=== PATIENT | female | born 1950 | race Caucasian/White ===

== ENCOUNTER → 2016-12-14 | Day surgery (SDC) | payer OTHER ==
[2016-12-11 08:04] VITALS: Ht 162.6 cm; Wt 70.0 kg
[~2016-12-14] VITALS: Ht 162.6 cm; Wt 70.0 kg
[~2016-12-14] MED LIST: AMT25 PO; ASPCH81X PO; DEXAMETHASONE SOD INJ 4 MG/ML VIAL ONE; LEVO100T7 PO; LIDOCAINE HCL 1% MPF 5 ML VIAL ONE; LPT/20 PO; NRN600 PO; TNR25 PO; ZLF/100 PO
--- NOTE | 2016-12-14 08:05 | History & Physical Bridge - SC ---
H&P Re-Evaluation Bridge Note: I have examined the patient, reviewed the History & Physical and in the interval since the performance of the History & Physical I have noted the following changes of clinical significance: No changes noted
--- NOTE | 2016-12-14 08:22 | Discharge Instructions-SurgCtr ---
Discharge Instructions Date of Service December 14, 2016. Visit Reason for Visit: Lumbar Spondylosis Discharge Discharge Diagnosis / Problem: spondylosis Discharge Goals Goal(s): Improve function Activity Recommendations Activity Limitations: resume your previous activity Anesthesia . Post Anesthesia Instructions: If you have had General Anesthesia or IV Sedation: * Do not drive today. * Resume driving when surgeon permits. * Do not make important decisions or sign legal documents today. * Call surgeon for: 1. Temperature elevations greater than 101 degrees F. 2. Uncontrollable pain. 3. Excessive bleeding. 4. Persistent nausea and vomiting. 5. Medication intolerance (nausea, vomiting or rash). * For nausea and vomiting use only clear liquids such as: tea, soda, bouillon until nausea subsides, then gradually increase diet as tolerated. * If you have any concerns or questions, call your surgeon's office. If physician is unavailable and it is an emergency, call 911 or go to the nearest emergency room. . Diet Recommendations Home Diet: no limitations Procedures Procedures Performed: LEFT L4-5, L5-S1 FACET JOINT INJECTIONS. Pending Studies Studies pending at discharge: no Medical Emergencies . Who to Call and When: Medical Emergencies: If at any time you feel your situation is an emergency, please call 911 immediately. . Non-Emergent Contact Non-Emergency issues call your: Surgeon . . "Provider Documentation" section prepared by Bryn Smith. .
--- NOTE | 2016-12-14 08:23 | [facility] Post Operative Brief Note ---
Immediate Operative Summary Operative Date December 14, 2016. Pre-Operative Diagnosis ACQUIRED SCOLIOSIS Post-Operative Diagnosis SAME Procedure(s) Performed LEFT L4-5, L5-S1 FACET JOINT INJECTIONS. Surgeon DR. Melinda CHEEMA [employer] General Manager Surgeon(s) NONE Estimated Blood Loss 5 ML Findings scoliosis Complication(s) None Disposition Recovery Room / PACU
[2016-12-14 08:24] VITALS: TEMP 36.7
[2016-12-14 08:37] VITALS: BP 134/87; PULSE 74; O2SAT 97
--- NOTE | 2016-12-14 08:37 | OPERATIVE REPORT ---
DATE OF OPERATION: 12/14/2016 PRE AND POSTOPERATIVE DIAGNOSIS: Degenerative scoliosis lumbar spine. PROCEDURE: Facet joint injections L4-L5 and L5-S1 lumbar spine. DESCRIPTION OF PROCEDURE: The patient was taken to the preoperative area. The 4-5 and L5-S1 area of degeneration localized with C-arm. The patient was prepped, draped sterile. The 22-gauge Tuohy needle advanced using biplanar fluoroscopy to the facet joints bilaterally at 4-5 and 5-S1. She tolerated it well. 1 mL of dexamethasone injected to each facet joint without incident. I attest to the content of the Intraoperative Record and any orders documented therein. Any exceptio ns are noted below.
== END | disposition home or self-care (01) ==
LOC: X.SURG 06:52
PROVIDERS: ATTEND Orthopaedic Surgery Orthopaedic Surgery of the Spine
DX: M47.896 Other spondylosis, lumbar region (principal); M41.9 Scoliosis, unspecified; F32.9 Major depressive disorder, single episode, unspecified; E07.9 Disorder of thyroid, unspecified; Z83.3 Family history of diabetes mellitus; Z82.49 Family history of ischemic heart disease and other diseases of the circulatory system; Z82.3 Family history of stroke

== ENCOUNTER → 2017-03-23 | Outpatient (CLI) | payer OTHER ==
[~2017-03-23] MED LIST changes: -DEXAMETHASONE SOD INJ 4 MG/ML VIAL ONE; -LIDOCAINE HCL 1% MPF 5 ML VIAL ONE
[2017-03-23 17:58] LABS: URINE APPEARANCE CLOUDY (CLEAR); URINE BILIRUBIN NEG (NEG); URINE COLOR DK YELLOW; URINE NITRITE NEG (NEG); URINE SPECIFIC GRAVITY 1.033 (1.000-1.030); UROBILINOGEN NEG (NEG)
[2017-03-23 18:00] LABS: MANUAL MICROSCOPIC REQUIRED? YES; REVIEW REQ? NO
[2017-03-23 18:14] LABS: URINE BACTERIA NEG (NEG); URINE RBC 0-4 /hpf (0-4)
== END | disposition home or self-care (01) ==
LOC: C.LABSPEC 17:31
PROVIDERS: ATTEND Obstetrics & Gynecology
DX: R39.9 Unspecified symptoms and signs involving the genitourinary system (principal); Z12.4 Encounter for screening for malignant neoplasm of cervix; N95.2 Postmenopausal atrophic vaginitis

== ENCOUNTER → 2017-03-23 | Outpatient (CLI) | payer OTHER | END | disposition home or self-care (01) | LOC: C.PAPS 07:38 | PROVIDERS: ATTEND Obstetrics & Gynecology | DX: Z12.4 Encounter for screening for malignant neoplasm of cervix (principal); N95.2 Postmenopausal atrophic vaginitis ==

== ENCOUNTER 2017-11-27 10:42 | Emergency (ER) | payer OTHER ==
[~2017-11-27] VITALS: Ht 160 cm; Wt 70.0 kg
[~2017-11-27 10:42] MED LIST changes: -LPT/20 PO; +LPT20 PO
[2017-11-27 10:44] VITALS: TEMP 37.1; Ht 160 cm; Wt 70.0 kg
[2017-11-27] MEDS ORDERED: SODIUM CHLORIDE 0.9% 1000ML 2,000 ML IV STA (11:03)
[2017-11-27] MEDS ORDERED: ONDANSETRON INJ 2 MG/ML 2 ML VIAL IV STA ×2 (11:03→13:05)
[2017-11-27] MEDS ORDERED: OPTIRAY 320 IV PRN (11:15)
[2017-11-27] MEDS ORDERED: ACETAMINOPHEN 500 MG TAB PO STA (11:45)
[2017-11-27 11:51] LABS: BASO % 0.3 %; BASO ABS # 0.03 K/uL (0-0.2); EOS % 0.1 %; EOS ABS # 0.01 K/uL (0-0.5); HEMATOCRIT 40.9 % (37-47); HEMOGLOBIN 14.6 g/dL (12.0-16.0); IG# 0.02 K/uL (0.00-0.02); LYMPH ABS # 1.24 K/uL (1.2-3.4); MEAN CELL VOLUME 91.3 fL (80-100); MEAN CORPUSCULAR HEMOGLOBIN 32.6 pg (25-34); MEAN CORPUSCULAR HGB CONC 35.7 g/dl (32-36); MEAN PLATELET VOLUME 10.9 fL (7.4-10.4); MONO % 5.6 %; MONO ABS # 0.54 K/uL (0.11-0.59); NEUT % 80.8 %; NEUT ABS # 7.72 K/uL (1.4-6.5); PLATELET COUNT 269 K/uL (130-400); RED CELL DISTRIBUTION WIDTH CV 13.9 % (11.5-14.5); RED CELL DISTRIBUTION WIDTH SD 46.9 fL (36.4-46.3); WHITE BLOOD COUNT 9.56 K/uL (4.8-10.8)
[2017-11-27 12:06] LABS: ALBUMIN 3.8 gm/dl (3.4-5.0); CALCIUM 9.2 mg/dl (8.5-10.1); CREATININE 0.73 mg/dl (0.60-1.20); POTASSIUM 3.6 mmol/L (3.5-5.1)
[2017-11-27 12:09] LABS: TOTAL PROTEIN 7.8 gm/dl (6.4-8.2)
--- NOTE | 2017-11-27 12:53 | DIAGNOSTIC IMAGING REPORT ---
ABDOMEN AND PELVIS CT WITH IV CONTRAST CT DOSE: 905.47 mGycm HISTORY: Acute generalized and epigastric abdominal pain abd pain epigastric TECHNIQUE: Multiaxial CT images of the abdomen and pelvis were performed following the use of intravenous contrast. A dose lowering technique was utilized adhering to the principles of ALARA. COMPARISON STUDY: CT abdomen and pelvis 12/26/2013. FINDINGS: Imaged inferior cardiac chambers are unremarkable. Mild subsegmental bibasilar atelectasis. Calcified granuloma of the basal left lower lobe. Calcified left hilar lymph nodes. No pneumatosis or pneumoperitoneum. Coronary arterial calcifications are noted. Imaged inferior cardiac chambers are unremarkable otherwise. Liver is unremarkable with the exception of a 3 mm low attenuating lesion of the hepatic dome, too small to characterize however statistically favoring benign etiology such as a hepatic cyst. Calcific granulomata throughout the spleen. Gallbladder, pancreas and adrenal glands are within normal limits. No renal calculi or hydronephrosis. Partially decompressed urinary bladder lumen. Prior hysterectomy. No adnexal mass lesions. Tortuosity with mild mixed plaquing of the aorta. No aneurysm. No bulky adenopathy. No small bowel obstruction. Fluid within the distal sigmoid and rectum. Colonic diverticulosis without CT evidence of acute diverticulitis. Partial distention of the bowel with mild wall thickening and mild pericolonic inflammatory stranding extends from the cecum to the rectum. Normal appendix. No ascites. Soft tissues are unremarkable. Multilevel term changes about the spine with sigmoidal thoracolumbar scoliosis. IMPRESSION: 1. Mild wall thickening with minimal pericolonic stranding extends from the cecum to the rectum suggesting infectious or inflammatory pancolitis. Sequela of partial distention is thought to be less likely. No bowel obstruction. 2. Colonic diverticulosis without diverticulitis. 3. Prior granulomatous disease. 4. Coronary arterial calcifications. 5. Additional findings as above. Electronically signed by: Mingo Torres M.D. 11/27/2017 12:51 PM Dictated Date/Time: 11/27/2017 12:43 PM
[2017-11-27] MEDS ORDERED: SODIUM CHLORIDE 0.9% 1000ML 1,000 ML IV STA (13:03)
[2017-11-27] MEDS ORDERED: METOCLOPRAMIDE HCL INJ 5 MG/ML 2 ML VIAL IV STA (13:05)
[2017-11-27] MEDS ORDERED: KETOROLAC TROMETHAMINE 30 MG/ML VIAL IV STA (13:13)
--- NOTE | 2017-11-27 14:31 | EMERGENCY ROOM VISIT NOTE ---
History Report prepared by Olga: Gustavo Nickerson Under the Supervision of: Dr. Epi Pimentel D.O. First contact with patient: 10:49 Chief Complaint: VOMITING Stated Complaint: VOMITING, ABD PAIN, DIZZY, DIARRHEA History of Present Illness The patient is a 67 year old female who presents to the Emergency Room with complaints of intermittent vomiting beginning yesterday. The patient also complains of diarrhea and RUQ abdominal pain. Her diarrhea began five days ago. Her most recent diarrhea occurred last night. The patient recently returned home from [facility] in the [facility] yesterday. She notes that she never left her resort. She states that she drank bottled water while there. The patient denies any known sick contacts. She has no prior abdominal surgeries. Pt denies headache, change in vision, fevers, chest pain, shortness of breath, pain with urination, and melena. She has not had anything to eat since yesterday. Source of History: patient Onset: Yesterday Quality: other (vomiting) Timing: intermittent Associated Symptoms: + abdominal pain (RUQ), + diarrhea, No fevers, No headache, No chest pain, No SOB, No melena, No urinary symptoms Review of Systems See HPI for pertinent positives & negatives. A total of 10 systems reviewed and were otherwise negative. Past Medical & Surgical Medical Problems: (1) Chronic low back pain (2) Depression (3) Generalized anxiety disorder (4) GERD (gastroesophageal reflux disease) (5) Hypercholesteremia (6) Hypertension (7) Hypothyroid (8) Scoliosis Surgical Problems: (1) S/P hysterectomy Family History FHx: cancer Hypertension Social History Smoking Status: Never Smoker Alcohol Use: none Marital Status: single Housing Status: lives alone Occupation Status: unemployed Current/Historical Medications Scheduled Amitriptyline HCl (Amitriptyline HCl), 25 MG PO HS Aspirin (Aspirin Chewable), 81 MG PO QAM Atenolol (Atenolol), 25 MG PO QAM Ciprofloxacin Hcl (Cipro), 500 MG PO BID Gabapentin (Gabapentin), 600 MG PO TID Levothyroxine Sodium (Levothyroxine Sodium), 100 MCG PO QAM Sertraline HCl (Sertraline HCl), 100 MG PO HS Scheduled PRN Ondansetron Hcl (Zofran), 4 MG PO TID PRN for Nausea Allergies Coded Allergies: No Known Allergies (Unverified , 11/27/17) Physical Exam Vital Signs Date Time Temp Pulse Resp B/P (MAP) Pulse Ox O2 Delivery O2 Flow Rate FiO2 11/27/17 16:00 89 20 97 Room Air 11/27/17 15:22 78 16 134/82 99 11/27/17 13:23 86 20 129/75 97 Room Air 11/27/17 10:44 37.1 88 18 155/85 99 Room Air Physical Exam GENERAL: Sitting up in bed, disheveled, sunburnt, no distress, non-toxic EYE EXAM: normal conjunctiva. OROPHARYNX: no exudate, no erythema, lips, buccal mucosa, and tongue normal and mucous membranes are moist NECK: supple, no nuchal rigidity, no adenopathy, non-tender LUNGS: Clear to auscultation. Normal chest wall mechanics HEART: no murmurs, S1 normal and S2 normal ABDOMEN: abdomen soft, normo-active bowel sounds, no masses, no rebound or guarding. Faint tenderness to the RUQ. BACK: Back is symmetrical on inspection and there is no deformity, no midline tenderness, no CVA tenderness. SKIN: no rashes and no bruising UPPER EXTREMITIES: upper extremities are grossly normal. LOWER EXTREMITIES: No pitting edema. NEURO EXAM: Normal sensorium, cranial nerves II-XII grossly intact, normal speech, no gross weakness of arms, no gross weakness of legs. Medical Decision & Procedures ER Provider Diagnostic Interpretation: Radiology results as stated below per my review and the radiologist's interpretation: ABDOMEN AND PELVIS CT WITH IV CONTRAST FINDINGS: Imaged inferior cardiac chambers are unremarkable. Mild subsegmental bibasilar atelectasis. Calcified granuloma of the basal left lower lobe. Calcified left hilar lymph nodes. No pneumatosis or pneumoperitoneum. Coronary arterial calcifications are noted. Imaged inferior cardiac chambers are unremarkable otherwise. Liver is unremarkable with the exception of a 3 mm low attenuating lesion of the hepatic dome, too small to characterize however statistically favoring benign etiology such as a hepatic cyst. Calcific granulomata throughout the spleen. Gallbladder, pancreas and adrenal glands are within normal limits. No renal calculi or hydronephrosis. Partially decompressed urinary bladder lumen. Prior hysterectomy. No adnexal mass lesions. Tortuosity with mild mixed plaquing of the aorta. No aneurysm. No bulky adenopathy. No small bowel obstruction. Fluid within the distal sigmoid and rectum. Colonic diverticulosis without CT evidence of acute diverticulitis. Partial distention of the bowel with mild wall thickening and mild pericolonic inflammatory stranding extends from the cecum to the rectum. Normal appendix. No ascites. Soft tissues are unremarkable. Multilevel term changes about the spine with sigmoidal thoracolumbar scoliosis. IMPRESSION: 1. Mild wall thickening with minimal pericolonic stranding extends from the cecum to the rectum suggesting infectious or inflammatory pancolitis. Sequela of partial distention is thought to be less likely. No bowel obstruction. 2. Colonic diverticulosis without diverticulitis. 3. Prior granulomatous disease. 4. Coronary arterial calcifications. 5. Additional findings as above. Electronically signed by: Mingo Torres M.D. 11/27/2017 12:51 PM Laboratory Results 11/27/17 11:20 Red Blood Count 4.48, Mean Corpuscular Volume 91.3, Mean Corpuscular Hemoglobin 32.6, Mean Corpuscular Hemoglobin Concent 35.7, Mean Platelet Volume 10.9, Neutrophils (%) (Auto) 80.8, Lymphocytes (%) (Auto) 13.0, Monocytes (%) (Auto) 5.6, Eosinophils (%) (Auto) 0.1, Basophils (%) (Auto) 0.3, Neutrophils # (Auto) 7.72, Lymphocytes # (Auto) 1.24, Monocytes # (Auto) 0.54, Eosinophils # (Auto) 0.01, Basophils # (Auto) 0.03 11/27/17 11:20 Test 11/27/17 11:20 11/27/17 13:40 11/27/17 13:55 White Blood Count 9.56 K/uL (4.8-10.8) Red Blood Count 4.48 M/uL (4.2-5.4) Hemoglobin 14.6 g/dL (12.0-16.0) Hematocrit 40.9 % (37-47) Mean Corpuscular Volume 91.3 fL (80-100) Mean Corpuscular Hemoglobin 32.6 pg (25-34) Mean Corpuscular Hemoglobin Concent 35.7 g/dl (32-36) Platelet Count 269 K/uL (130-400) Mean Platelet Volume 10.9 fL (7.4-10.4) Neutrophils (%) (Auto) 80.8 % Lymphocytes (%) (Auto) 13.0 % Monocytes (%) (Auto) 5.6 % Eosinophils (%) (Auto) 0.1 % Basophils (%) (Auto) 0.3 % Neutrophils # (Auto) 7.72 K/uL (1.4-6.5) Lymphocytes # (Auto) 1.24 K/uL (1.2-3.4) Monocytes # (Auto) 0.54 K/uL (0.11-0.59) Eosinophils # (Auto) 0.01 K/uL (0-0.5) Basophils # (Auto) 0.03 K/uL (0-0.2) RDW Standard Deviation 46.9 fL (36.4-46.3) RDW Coefficient of Variation 13.9 % (11.5-14.5) Immature Granulocyte % (Auto) 0.2 % Immature Granulocyte # (Auto) 0.02 K/uL (0.00-0.02) Anion Gap 9.0 mmol/L (3-11) Est Creatinine Clear Calc Drug Dose 71.1 ml/min Estimated GFR () 99.5 Estimated GFR (Non- 85.8 BUN/Creatinine Ratio 22.9 (10-20) Calcium Level 9.2 mg/dl (8.5-10.1) Total Bilirubin 0.5 mg/dl (0.2-1) Direct Bilirubin 0.1 mg/dl (0-0.2) Aspartate Amino Transf (AST/SGOT) 53 U/L (15-37) Alanine Aminotransferase (ALT/SGPT) 54 U/L (12-78) Alkaline Phosphatase 209 U/L (45-117) Total Protein 7.8 gm/dl (6.4-8.2) Albumin 3.8 gm/dl (3.4-5.0) Lipase 363 U/L (73-393) Urine Color YELLOW Urine Appearance CLEAR (CLEAR) Urine pH 7.0 (4.5-7.5) Urine Specific [place] > 1.045 (1.000-1.030) Urine Protein NEG (NEG) Urine Glucose (UA) NEG (NEG) Urine Ketones 2+ (NEG) Urine Occult Blood NEG (NEG) Urine Nitrite NEG (NEG) Urine Bilirubin NEG (NEG) Urine Urobilinogen NEG (NEG) Urine Leukocyte Esterase NEG (NEG) Urine WBC (Auto) 0 /hpf (0-5) Urine RBC (Auto) 0-4 /hpf (0-4) Urine Hyaline Casts (Auto) 0 /lpf (0-5) Urine Epithelial Cells (Auto) 0-5 /lpf (0-5) Urine Bacteria (Auto) NEG (NEG) Lactic Acid Level 2.0 mmol/L (0.4-2.0) Laboratory results per my review. Medications Administered Medications (Trade) Dose Ordered Sig/Tiana Route Start Time Stop Time Status Last Admin Dose Admin Sodium Chloride 2,000 ml @ 999 mls/hr Q2H1M STAT IV 11/27/17 11:03 11/27/17 13:03 DC 11/27/17 11:34 999 MLS/HR Ondansetron HCl (Zofran Inj) 4 mg NOW STAT IV 11/27/17 11:03 11/27/17 11:06 DC 11/27/17 11:43 4 MG Acetaminophen (Tylenol Tab) 1,000 mg NOW STAT PO 11/27/17 11:45 11/27/17 11:46 DC 11/27/17 11:53 1,000 MG Sodium Chloride 1,000 ml @ 999 mls/hr Q1H1M STAT IV 11/27/17 13:03 11/27/17 14:03 DC 11/27/17 13:16 999 MLS/HR Ondansetron HCl (Zofran Inj) 4 mg NOW STAT IV 11/27/17 13:05 11/27/17 13:08 DC 11/27/17 13:16 4 MG Metoclopramide HCl (Reglan Inj) 5 mg NOW STAT IV 11/27/17 13:05 11/27/17 13:08 DC 11/27/17 13:16 5 MG Ketorolac Tromethamine (Toradol Inj) 30 mg NOW STAT IV 11/27/17 13:13 11/27/17 13:14 DC 11/27/17 13:17 30 MG ED Course ED COURSE: Vital signs were reviewed and showed hypertension. The patients medical record was reviewed The above diagnostic studies were performed and reviewed. ED treatments and interventions as stated above. 1059: The patient was evaluated in room B3B. A complete history and physical examination was performed. 1103: Ordered Zofran Inj 4 mg IV, Sodium Chloride 2000 ml @ 999 mls/hr IV. 1145: Ordered Tylenol Tab 1000 mg Po. 1301: I reassessed the patient. She was able to keep down Tylenol and PO fluids. 1303: Ordered Sodium Chloride 1000 ml @ 999 mls/hr IV. 1305: Ordered Reglan Inj 5 mg IV, Zofran Inj 4 mg IV. 1313: Ordered Toradol Inj 30 mg IV. 1519: Ordered Cipro Tab 500 mg PO. 1530: Upon reevaluation, the patient is resting comfortably. I discussed my findings with the patient and she understands and agrees with the treatment plan. Based on the patients age, coexisting illnesses, exam and lab findings the decision to treat as an outpatient was made. The patient remained stable while under my care. The patient appeared well at the time of discharge. Medical Decision Differential diagnoses includes but is not limited to gastritis, peptic ulcer disease, GERD, gallbladder disease, pancreatitis, small bowel obstruction, acute coronary syndrome, pericarditis, ischemic bowel, irritable bowel disease, irritable bowel syndrome, appendicitis, diverticulitis, malignancy, hernia, urinary tract infection, torsion, perforation, trauma, infectious. Patient is a 67-year-old female who recently returned from [place], that presents to ER for persistent diarrhea since this past but this is now resolved. She is now vomiting which is been occurring over the past 24-48 hours. Last bowel movement was last night. Abdominal exam is fairly benign. CT was performed and showed a diffuse pancolitis. CBC along with BMP, LFTs, bilirubin lipase is unremarkable. Lactic acid was drawn secondary to the pancolitis and was normal. UA was unremarkable. Patient was given 3 L normal saline, Zofran and Reglan. She was able to tolerate oral fluids and Tylenol. Patient was able to tolerate oral liquids. She was feeling slightly better. Nausea resolved. Unable to obtain a stool culture. Did discuss with GI. Patient was given dose of Cipro and was discharged to follow-up with PCP as an outpatient within 24 hours for repeat abdominal check. Discussed with Pt concerning signs and symptoms to watch out for. Pt was instructed to follow up with their PCP and discussed with the patient their option to return to the ED at anytime for persistent or worsening symptoms. The appropriate anticipatory guidance and out-patient management, including indications for return to the emergency department, were explained at length to the patient and understood. Medication Reconcilliation Current Medication List: was personally reviewed by me Blood Pressure Screening Patient's blood pressure: Elevated blood pressure Blood pressure disposition: Elevated BP felt to be situational Consults Time Called: 151 Consulting Physician: Dr. Howe - GI Returned Call: [phone] We discussed the patient's case. Dr. Howe agrees with the treatment plan, and will follow-up with the patient. Impression Primary Impression: Nausea, vomiting, and diarrhea Additional Impression: Colitis Scribe Attestation The scribe's documentation has been prepared under my direction and personally reviewed by me in its entirety. I confirm that the note above accurately reflects all work, treatment, procedures, and medical decision making performed by me. Departure Information Dispostion Home / Self-Care Prescriptions Ciprofloxacin Hcl (CIPRO) 500 Mg Tab 500 MG PO BID, #10 TAB Prov: Epi Pimentel, DO 11/27/17 Ondansetron Hcl (ZOFRAN) 4 Mg Tab 4 MG PO TID Y for Nausea, #30 TAB Prov: Epi Pimentel, DO 11/27/17 Referrals Meredith Lind D.O. (PCP) Forms HOME CARE DOCUMENTATION FORM, IMPORTANT VISIT INFORMATION Patient Instructions ED Vomiting Diarrhea Nonspecific Ad, [facility] Additional Instructions Please follow up with your primary care doctor with in the next 24 hours. Any worsening of your symptoms, please return to the ED immediately. This includes any fevers greater than 100.4, worsening pain, chest pain, shortness breath, persistent nausea, vomiting, unable to eat or drink, or any other concerning signs or symptoms from your standpoint. If the diarrhea returns please follow-up with your primary care doctor and she will need stool cultures. Problem Qualifiers
[2017-11-27] MEDS ORDERED: CIPROFLOXACIN 500 MG TAB PO STA (15:19)
[2017-11-27 15:22] VITALS: BP 134/82
[2017-11-27] MEDS ORDERED: CIPR-255 PO (15:29)
[2017-11-27] MEDS ORDERED: ONDA4TAB46 PO (15:29)
[2017-11-27 16:00] VITALS: PULSE 89; O2SAT 97
== END 2017-11-27 16:10 | disposition home or self-care (01) ==
LOC: C.EDB 10:43
DX: R11.2 Nausea with vomiting, unspecified (principal); R19.7 Diarrhea, unspecified; K52.9 Noninfective gastroenteritis and colitis, unspecified; I10 Essential (primary) hypertension; E03.9 Hypothyroidism, unspecified; F32.9 Major depressive disorder, single episode, unspecified; K21.9 Gastro-esophageal reflux disease without esophagitis; E78.00 Pure hypercholesterolemia, unspecified; Z79.82 Long term (current) use of aspirin; Z79.899 Other long term (current) drug therapy

== ENCOUNTER 2021-09-01 12:15 | Inpatient (IN) ==
--- NOTE | 2021-09-01 13:08 | Emergency Department Note ---
History of Present Illness General Chief complaint: Mental Health Evaluation Stated complaint: ILLNESS-REF BY DOCTOR Time Seen by Provider: 09/01/21 12:39 Source: patient Mode of arrival: ambulatory Limitations: no limitations History of Present Illness Provider complaint: mental health evaluation Maximum Pain Intensity: 8 This is a 70-year-old female presents emergency department at the recommendation of her PCP due to concern for anxiety. Patient states she has a history of anxiety and depression. She admits to recent suicidal ideation as well as consideration of several possible plans including overdose or intentional car accident. Patient states she "does not like herself". She then lists multiple features about herself that she states she does not like. Patient states she is under increased stress recently as her mother has recently been declining and ill and was placed in a group home and now has to be fed through a feeding tube. Patient states she stopped taking all of her medications about 2 months ago. Patient states she was here yesterday due to concern for ongoing diarrhea and had an evaluation and was discharged home. Patient states on the way home she had 2 further episodes of diarrhea. Patient states she does not like her family doctor and does not intend to see her again. Pt seen during a time of high acuity and national emergency pandemic while wearing PPE. Home Medications Medication Instructions Recorded Confirmed Type atorvastatin 20 mg tablet 20 mg PO HS 03/10/19 08/31/21 History meloxicam 15 mg tablet 15 mg PO DAILY PRN #30 tab 06/07/20 08/31/21 Rx tramadol 50 mg tablet 50 mg PO Q8H PRN 12/03/20 08/31/21 History triamcinolone acetonide 0.1 % 1 applic TOPICAL DIRECTED PRN 12/03/20 08/31/21 History topical ointment levothyroxine 75 mcg tablet 75 mcg PO QAM #90 tab 04/01/21 08/31/21 Rx cholecalciferol (vitamin D3) 25 75 mcg PO DAILY 08/31/21 08/31/21 History mcg (1,000 unit) tablet (Vitamin D3) ondansetron 4 mg disintegrating 4 mg PO DAILY 5 Days #5 tab 08/31/21 Rx tablet vitamin B complex 1 tab PO DAILY 08/31/21 08/31/21 History Allergies Allergy/AdvReac Type Severity Reaction Status Date / Time No Known Allergies Allergy Verified 08/31/21 15:28 Past Med/Surg History Medical History Chronic low back pain Depression Generalized anxiety disorder GERD (gastroesophageal reflux disease) Hypercholesteremia Hypertension Osteoporosis Scoliosis Surgical History S/P hysterectomy Family History Other No known health problems Social History Smoking Status: Never smoker Second Hand Exposure: No; Hx Alcohol Use: No Hx Substance Use: No Preferred Language: Tunisian Communication Ability: Effective Dietary Internship Required: No Beliefs That Will Affect Care: None Current Living Situation: Alone Feels Safe at Home: Yes Assistive Devices: Glasses Review of Systems A total of 10 systems reviewed and were otherwise negative All systems reviewed & are unremarkable except as noted in HPI & below Physical Exam Vital Signs Vital Signs - 24 hr 09/01/21 12:27 09/01/21 15:17 09/01/21 17:17 Temperature 36.8 C Temperature Source Temporal Artery Scan Pulse Rate 88 Pulse Rate [Finger] 76 82 Pulse Rhythm [Finger] Regular Respiratory Rate 18 18 17 Respiratory Effort / Characteristics Non-Labored Non-Labored Blood Pressure 172/107 H Blood Pressure [Left Arm] 142/98 H 141/90 H Blood Pressure Mean 128 Blood Pressure Mean [Left Arm] 112 107 Pulse Oximetry 96 98 96 Oxygen Delivery Method Room Air Room Air Room Air Sepsis Recent Fever Within 48 Hours No Sepsis New/Unexplained Change in Mental Status No Sepsis Action Taken by Nursing No Action Required GENERAL: alert, anxious appearing, well nourished, no distress, non-toxic EYE EXAM: normal conjunctiva, PERRL and EOM's grossly intact OROPHARYNX: no exudate, no erythema, lips, buccal mucosa, and tongue normal and mucous membranes are moist NECK: supple, no nuchal rigidity, no adenopathy, non-tender LUNGS: Clear to auscultation. Normal chest wall mechanics, no w/r/r HEART: no murmurs, S1 normal and S2 normal ABDOMEN: abdomen soft, non-tender, normo-active bowel sounds, no masses, no rebound or guarding. BACK: Back is symmetrical on inspection and there is no deformity, no midline tenderness, no CVA tenderness. SKIN: no rashes and no bruising UPPER EXTREMITIES: upper extremities are grossly normal. FROM, nml pulses b/l. LOWER EXTREMITIES: No pitting edema. FROM, nml pulses b/l. NEURO EXAM: Normal sensorium, cranial nerves II-XII grossly intact, normal speech, no gross weakness of arms, no gross weakness of legs. Gross sensation intact. Course Course 1510: Patient requested to speak with myself and the continuous pillowcase cutter again. Patient had reported to the continuous pillowcase cutter that she did have suicidal ideation with a plan on Sunday. Patient does live alone. She is not currently in contact with her seeing any mental health professionals. We did discuss with patient inpatient treatment and told her we are comfortable with her going home. Patient would like to discuss this with her son. Administered Medications Hydroxyzine HCl (Hydroxyzine Hcl 25 Mg Tab) 50 mg PO HSZ PRN PRN Reason: Insomnia Stop: 10/01/21 18:40 Last Admin: 09/01/21 20:48 Dose: 50 mg Documented by: [id number] Melatonin (Melatonin 3 Mg Tab) 3 mg PO HS PRN PRN Reason: Sleep Stop: 10/01/21 19:52 Last Admin: 09/01/21 20:49 Dose: 3 mg Documented by: [id number] Tramadol HCl (Tramadol Hcl 50 Mg Tablet) 50 mg PO Q8H PRN PRN Reason: Pain Stop: 10/01/21 19:53 Last Admin: 09/01/21 20:49 Dose: 50 mg Documented by: [id number] Discontinued Medications Acetaminophen (Acetaminophen 325 Mg Tab) 650 mg PO NOW STA Stop: 09/01/21 13:17 Last Admin: 09/01/21 13:28 Dose: 650 mg Documented by: [id number] Lorazepam (Lorazepam 1 Mg Tab) 1 mg SL NOW STA Stop: 09/01/21 13:17 Last Admin: 09/01/21 13:28 Dose: 1 mg Documented by: [id number] Medical Decision Making Differential Diagnosis Differential diagnoses considered include mood disorder, infection, hypoglycemia, electrolyte abnormalities, cardiac sources, intracerebral event, toxicologic, neurologic, as well as others. Medical Records Attestation: I reviewed the patient's medical records. Home Medications Current Medication List: was personally reviewed by me Laboratory Data Attestation: I reviewed the patient's lab results. Lab Results 09/01/21 09/01/21 09/01/21 Range/Units 14:05 14:05 16:40 Urine Color Dark Yellow Urine Appearance Clear (Clear) Urine pH 5.5 (4.5-7.5) Ur Specific [place] 1.038 H (1.000-1.030) Urine Protein Trace H (Negative) Urine Glucose (UA) Negative (Negative) Urine Ketones 4+ H (Negative) Urine Blood Negative (Negative) Urine Nitrite Negative (Negative) Urine Bilirubin 1+ H (Negative) Urine Urobilinogen Negative (Negative) Ur Leukocyte Esterase Trace H (Negative) Urine WBC (Auto) 10-30 H (0-5) /hpf Urine RBC (Auto) 0-4 (0-4) /hpf U Hyaline Cast (Auto) 10-30 H (0-5) /lpf U Epithel Cells (Auto) >30 H (0-5) /lpf Urine Bacteria (Auto) Negative (Negative) Salicylates (3.0-30) mg/dl Urine Opiates Screen Neg (Neg) Ur Methadone, Qual Neg (Neg) Acetaminophen (10-30) ug/ml Urine Barbiturates Neg (Neg) Ur Phencyclidine (PCP) Neg (Neg) U Amphetamin/Meth Scrn Neg (Neg) MDMA (Ecstasy) Screen Neg (Neg) U Benzodiazepines Scrn Neg (Neg) Ur Cocaine Metabolite Neg (Neg) U Marijuana (THC) Screen Neg (Neg) SARS-CoV-2, RNA, NAAT NEGATIVE (NEGATIVE) 09/01/21 Range/Units 16:44 Urine Color Urine Appearance (Clear) Urine pH (4.5-7.5) Ur Specific [place] (1.000-1.030) Urine Protein (Negative) Urine Glucose (UA) (Negative) Urine Ketones (Negative) Urine Blood (Negative) Urine Nitrite (Negative) Urine Bilirubin (Negative) Urine Urobilinogen (Negative) Ur Leukocyte Esterase (Negative) Urine WBC (Auto) (0-5) /hpf Urine RBC (Auto) (0-4) /hpf U Hyaline Cast (Auto) (0-5) /lpf U Epithel Cells (Auto) (0-5) /lpf Urine Bacteria (Auto) (Negative) Salicylates < 3.0 L (3.0-30) mg/dl Urine Opiates Screen (Neg) Ur Methadone, Qual (Neg) Acetaminophen 6 L (10-30) ug/ml Urine Barbiturates (Neg) Ur Phencyclidine (PCP) (Neg) U Amphetamin/Meth Scrn (Neg) MDMA (Ecstasy) Screen (Neg) U Benzodiazepines Scrn (Neg) Ur Cocaine Metabolite (Neg) U Marijuana (THC) Screen (Neg) SARS-CoV-2, RNA, NAAT (NEGATIVE) MDM Narrative This is a 70 yo female who presents from home after being referred by her PCP's office due to concern about her anxiety. Patient recently evaluated here for diarrhea in addition. Patient admits to being non compliance with her prior medications and states she doesn't like her PCP that ordered them. Patient is not currently seeing any mental health professionals. Patient admits to anxiety/depression and suicidal ideation. Patient reports a plan and recently writing a suicide note to case mgmt. Case mgmt wrote 302 petition as a precaution but patient ultimately willing to sign in voluntarily. VS stable. Patient evaluated for admission by 3S. Impression & Plan Depression, Anxiety, Suicidal ideation Discharge Plan Visit Data Chief Complaint: Mental Health Evaluation Stated Complaint: ILLNESS-REF BY DOCTOR ED Provider: Yasmeen Israel Discharge Problem: Depression, Anxiety, Suicidal ideation Patient Disposition: Admitted As Inpatient Discharge Instructions Interventions: ED Discharge Assessment Last Done: 09/01/21 19:06 Discharge Problem: Depression Qualifiers: Depression Type: unspecified Qualified Code(s): F32.A - Depression, unspecified
[2021-09-01] MEDS ORDERED: LORazepam 1 MG TAB SL STA (13:16)
[2021-09-01] MEDS ORDERED: ACETAMINOPHEN 325 MG TAB PO STA (13:16)
[2021-09-01 14:38] LABS: Appearance Urine Clear (Clear); Bacteria Urine Automated Negative (Negative); Blood Urine Negative (Negative); Color Urine Dark Yellow; Epithelial Cell Urine Auto >30 /lpf (0-5); Glucose Urine UA Negative (Negative); Ketones Urine 4+ (Negative); Leukocyte Esterase Urine Trace (Negative); Nitrite Urine Negative (Negative); Protein Urine Trace (Negative); RBC Urine Automated 0-4 /hpf (0-4); Specific Gravity Urine 1.038 (1.000-1.030); Urobilinogen Urine Negative (Negative); pH Urine 5.5 (4.5-7.5)
[2021-09-01 14:40] LABS: Bilirubin Urine 1+ (Negative)
[2021-09-01 14:54] LABS: Amphetamines+Metham, Urine Neg (Neg); Barbiturates, Urine Neg (Neg); Benzodiazepine, Urine Neg (Neg); Cocaine, Urine Neg (Neg); MDMA (Ecstacy), Urine Neg (Neg); Methadone, Urine Neg (Neg); Opiate, Urine Neg (Neg); Phencyclidine, Urine Neg (Neg)
[2021-09-01 17:21] LABS: Acetaminophen 6 ug/ml (10-30); Salicylate < 3.0 mg/dl (3.0-30)
[2021-09-01] MEDS ORDERED: hydrOXYzine HCl 25 MG TAB PO PRN ×2 (18:41)
[2021-09-01] MEDS ORDERED: BISMUTH SUBSALICYLATE LIQD 236 ML PO PRN (18:41)
[2021-09-01] MEDS ORDERED: ACETAMINOPHEN 325 MG TAB PO PRN (18:41)
[2021-09-01] MEDS ORDERED: ALUMINUM/MAGNESIUM SUSP 30 ML UDC PO PRN (18:41)
[2021-09-01] MEDS ORDERED: MAGNESIUM HYDROXIDE SUSP 30 ML UDC PO PRN (18:41)
[2021-09-01] MEDS ORDERED: SODIUM CHLORIDE 0.65% NA SOLN 45 ML (OCEAN) PRN (18:41)
[2021-09-01] MEDS ORDERED: MELATONIN 3 MG TAB PO PRN (19:53)
[2021-09-01] MEDS ORDERED: MELOXICAM 7.5 MG TAB PO PRN (19:54)
[2021-09-01] MEDS ORDERED: PROPRANOLOL HCL 10 MG TAB PO PRN (19:56)
[2021-09-01] MEDS ORDERED: MIRTAZAPINE TAB 15 MG TAB PO PRN (19:59)
[2021-09-01] MEDS: traMADol HCL 50 MG TABLET PO PRN (20:49)
[2021-09-01] MEDS ORDERED: traMADol HCL 50 MG TABLET PO SCH (21:00)
[2021-09-01] MEDS: ATORVASTATIN 20 MG TAB PO SCH (22:56)
[2021-09-02] MEDS: LEVOTHYROXINE SODIUM 75 MCG TABLET PO SCH (08:30)
[2021-09-02] MEDS: CHOLECALCIFEROL 1,000 UNITS 25 MCG TAB PO SCH (09:10)
[2021-09-02] MEDS: ONDANSETRON 4 MG OD TAB PO SCH (09:11)
[2021-09-02] MEDS: traMADol HCL 50 MG TABLET PO PRN ×2 (09:45→20:35)
--- NOTE | 2021-09-02 11:23 | History & Physical ---
Date of Service September 02, 2021 Impression / Recommendations Impression The patient is a 70 year old with a history of depression and anxiety who was admitted for worsening depression and SI with plan on a 201 commitment. Diagnostically consistent with MDD, recurrent with anxious distress as well as PTSD and CHESTER. The patient is deemed unstable and requires psychiatric hospitalization for diagnostic clarification, safety and stabilization, medication management and development of further coping skills. Discussed treatment options and recommendations in detail. She is agreeable to trying outpatient therapy with a CBT focus. Reviewed medication options including SSRI, SNRI as well as other options such as mirtazapine. She is generally opposed to trying any psychiatric medications given her recent experiences of feeling overwhelmed by changes to her psychiatric medications. She did consent to starting mirtazapine to help with insomnia, anxiety and possible benefit for nausea. Reviewed risks, benefits, alternatives including but not limited to side effects of sedation, dizziness, HANSEN, increased appetite/weight gain. She would also like to continue gabapentin which she restarted two weeks at her long time prior to admission dosage. Reviewed side effects including but not limited to dizziness, potential increase fall risk, sedation. She would also like to start propranolol for anxiety, reviewed side effects including but not limited to low BP, syncope, mood effects. QTc reviewed and stable for initiation of psychiatric medication. Should she require longer term zofran then EKG should be periodically monitored for QTc as this also impacts QTc in addition to psychiatric medications. (1) Major depressive disorder, recurrent episode with anxious distress: (2) Post traumatic stress disorder (PTSD): (3) Generalized anxiety disorder: 09/02/21: The patient was admitted to the [facility] ([facility] mental [facility]) on q15 min checks (behavioral with suicide precautions) for safety. The patient will participate in group, recreational, and milieu therapies and will be offered additional individual and family sessions as clinically appropriate. -SW will work on referral for outpatient therapy with CBT focus; she is also agreeable to follow-up with her PCP for stomach pain -Continue prior to admission tramadol, atorvastatin, levothyroxine, gabapentin and zofran prn for recent nausea -Start mirtazapine 7.5 mg qhs -Start propranolol 10mg BID for anxiety -Add probiotic Inventory Assets Strengths: strong family support, long history of outpatient stability Needs: additional coping skills, medication adjustments Risk Factors Assessment Acute risk is elevated given major depressive symptoms, intermittent SI with recent thoughts of plan and preparatory behaviors as well as co-morbid anxiety and history of trauma. Most significant modifiable risk factor is to improve coping skills and reduce depressive and anxious symptoms. Male: No : Yes Do You Have Access To A Gun?: No Health Problems: Yes Mental Health Diagnoses: Yes Substance Use Disorders: No Previous Attempt: No Family History of Suicide: No Previous Psychiatric Hospitalization: No Hopelessness: Yes Smoker: No Protective Factors Assessment Employed: No Psychiatric History Identifying Data SALVATORE FENG is a 70-year-old woman who currently lives alone, has a history of depression, anxiety, chronic back pain d/t scoliosis, osteoporosis, HTN and GERD, and was admitted on 09/01/21 18:41 on a 201 voluntary commitment for worsening depression and SI with plan of overdosing. Chief Complaint "I felt like I was going to jump out of my skin". History of Present Illness Francoise reports worsening depression and anxiety in the context of multiple stressors including recently placing her mother in a jail facility, the stress of caring for her mother, chronic back pain due to her scoliosis, worsening gastrointestinal distress including diarrhea & nausea, and recently discontinuing her psychiatric medications in June. She describes stopping her medication after feeling like she had been on multiple different medications recently causing her "head to spin". She notes frustration at changing medications and now feels a desire to avoid psychiatric medications. Since stopping the medications she has felt more restless, her mood symptoms have worsened and she has been experiencing diarrhea and headaches. She endorses symptoms of depression including hopelessness, helplessness, low self-worth, insomnia, decreased appetite and anhedonia. She also endorses increased anxiety with periods of restlessness, ruminative thoughts and panic attacks vs post menopausal symptoms with hot flashes. She has been having SI with thoughts of overdosing or intentionally crashing her car. On Sunday the SI intensified to the point that she had been collecting pills she could take and wrote a suicide note which she states developed in the context of severe anxiety and feeling like she was going to "jumpl out of my skin". She then was able to fall asleep and presenting to the ED on Sunday for her headache and stomach issues and then again yesterday for help regarding her anxiety and mood. She does note having many reasons to live including her sons and her grandchildren whom she loves but continues to experience SI and wishes that she could be injected with something that would allow her to . Today she is feeling "a bit better" with no SI today. She notes feeling overwhelmed at times from dealing with her mother's worsening health condition and experiencing "mood swings" throughout the day which seem to be related to experiencing "a second wave of menopause". Psychiatric ROS notable for no history of pantera, no history psychosis, no histo ry of substance use. Past Psychiatric History Current Psychiatric Diagnosis: Depression Outpatient Services: had been seeing a provider via telemedicine through [facility] in [place] but stopped in June 2021; last year did outpatient therapy through [facility] Previous Psych Admissions: none Do You Have Access To A Gun?: No Past Medication Trials: atenolol 20 years ago for anxiety, sertraline for 14 years stopped 2 years ago, took gabapentin for many years, most recently on Cymbalta, lyrica through June 2021, her psychiatrist had recently prescribed mirtazapine but she doesn't recall if she ever tried taking this. Allergies Allergy/AdvReac Type Severity Reaction Status Date / Time No Known Allergies Allergy Verified 08/31/21 15:28 Home Medications Medication Instructions Recorded Confirmed Type atorvastatin 20 mg tablet 20 mg PO HS 03/10/19 08/31/21 History meloxicam 15 mg tablet 15 mg PO DAILY PRN #30 tab 06/07/20 09/02/21 Rx tramadol 50 mg tablet 50 mg PO Q8H PRN 12/03/20 09/02/21 History levothyroxine 75 mcg tablet 75 mcg PO QAM #90 tab 04/01/21 09/02/21 Rx cholecalciferol (vitamin D3) 25 75 mcg PO DAILY 08/31/21 08/31/21 History mcg (1,000 unit) tablet (Vitamin D3) ondansetron 4 mg disintegrating 4 mg PO DAILY 5 Days #5 tab 08/31/21 09/02/21 Rx tablet vitamin B complex 1 tab PO DAILY 08/31/21 08/31/21 History Family History Family History of: Doesn't Know Alcohol History Hx of Alcohol Use Over the Past 12 Months: No AUDIT Total Score: 0 Smoking Use Have You Smoked or Used Tobacco Products in the Last 30 Days: No Smoking Status: Never smoker Substance History Hx of Prescription Med Misuse Over the Past 12 Months: No Hx of Over the Counter Med Misuse Over the Past 12 Months: No Hx of Inhalent Misuse Over the Past 12 Months: No Hx of Organic Substance Use Over the Past 12 Months: No Hx of Illegal Substances/Street Drug Use Over Past 12 Months: No Problems as a Result of Past Substance Use: None Identified Personal History Living Arrangements: Home Employment Status: Retired Marital Status: Number Of Children: 2 sons Beliefs That Will Affect Care: None Hx Traumatic Life Events: Yes Patient History Medical History (Updated 09/02/21 @ 14:34 by Cintia Martinez MD) Chronic low back pain Depression Generalized anxiety disorder GERD (gastroesophageal reflux disease) Hypercholesteremia Hypertension Major depressive disorder, recurrent episode with anxious distress Osteoporosis Post traumatic stress disorder (PTSD) Scoliosis Surgical History S/P hysterectomy Family History Other No known health problems Social History Smoking Status: Never smoker Second Hand Exposure: No; Hx Alcohol Use: No Hx Substance Use: No Preferred Language: Italian Communication Ability: Effective Piping Supervisor Required: No Beliefs That Will Affect Care: None Current Living Situation: Alone Feels Safe at Home: Yes Assistive Devices: Glasses Review of Systems Review of Systems: All systems reviewed & are unremarkable except as noted in HPI & below (endorses fatigue, HANSEN today; intermittent stomach "ache" and nausea) Physical Exam Psychiatric: Orientation: alert and oriented x 3 Apperance: appropriately dressed and appropriately groomed Eye Contact: good eye contact Motor Behavior: no abnormal motor movements Speech: normal rate/rhythm/volume of speech Affect: + depressed affect Mood: + depressed mood and + anxious mood Thought Process: goal directed thought process Thought Content: reality based without delusions Suicidal Thoughts: denies suicidal plan and denies suicidal intent; + reports suicidal thoughts (intermittent SI, none today and feels safe in the hospital) Homicidal Thoughts: denies homicidal thoughts Hallucinations: no auditory hallucinations and no visual hallucinations Cognition: recent memory grossly intact, remote memory grossly intact, attention grossly intact and language grossly intact Estimated Intelligence: consistent with education level Insight: + impaired insight Judgement: + impaired judgement Vital Signs (Past 24 Hours): Last Vital Signs Temp 36.6 C 09/02/21 06:00 Pulse 79 09/02/21 06:25 Resp 16 09/02/21 06:00 BP 132/80 09/02/21 06:25 Pulse Ox 97 09/01/21 19:37 Exam Statement: A physical exam was performed in the ED by Dr. Israel for the purposes of medical clearance. I accept that physical as correct and adequate for the purposes of the inpatient physical exam. Results & Data (U) Laboratory Results Laboratory Results - last 24 hr 09/01/21 09/01/21 09/01/21 14:05 14:05 16:40 Urine Color Dark Yellow Urine Appearance Clear Urine pH 5.5 Ur Specific [place] 1.038 H Urine Protein Trace H Urine Glucose (UA) Negative Urine Ketones 4+ H Urine Blood Negative Urine Nitrite Negative Urine Bilirubin 1+ H Urine Urobilinogen Negative Ur Leukocyte Esterase Trace H Urine WBC (Auto) 10-30 H Urine RBC (Auto) 0-4 U Hyaline Cast (Auto) 10-30 H U Epithel Cells (Auto) >30 H Urine Bacteria (Auto) Negative Salicylates Urine Opiates Screen Neg Ur Methadone, Qual Neg Acetaminophen Urine Barbiturates Neg Ur Phencyclidine (PCP) Neg U Amphetamin/Meth Scrn Neg MDMA (Ecstasy) Screen Neg U Benzodiazepines Scrn Neg Ur Cocaine Metabolite Neg U Marijuana (THC) Screen Neg SARS-CoV-2, RNA, NAAT NEGATIVE 09/01/21 16:44 Urine Color Urine Appearance Urine pH Ur Specific [place] Urine Protein Urine Glucose (UA) Urine Ketones Urine Blood Urine Nitrite Urine Bilirubin Urine Urobilinogen Ur Leukocyte Esterase Urine WBC (Auto) Urine RBC (Auto) U Hyaline Cast (Auto) U Epithel Cells (Auto) Urine Bacteria (Auto) Salicylates < 3.0 L Urine Opiates Screen Ur Methadone, Qual Acetaminophen 6 L Urine Barbiturates Ur Phencyclidine (PCP) U Amphetamin/Meth Scrn MDMA (Ecstasy) Screen U Benzodiazepines Scrn Ur Cocaine Metabolite U Marijuana (THC) Screen SARS-CoV-2, RNA, NAAT Diagnostic Findings EKG QTc reviewed-QTc 458 Current Inpatient Medications Current Inpatient Medications: Current Inpatient Medications Acetaminophen (Acetaminophen 325 Mg Tab) 650 mg PO Q4H PRN PRN Reason: Headache or Minor Fever Stop: 10/01/21 18:40 Last Admin: 09/02/21 09:45 Dose: 650 mg Documented by: Al Hydrox/Mg Hydrox/Simethicone (Aluminum/Magnesium Susp 30 Ml Udc) 30 ml PO Q4H PRN PRN Reason: GI Upset Stop: 10/01/21 18:40 Atorvastatin Calcium (Atorvastatin 20 Mg Tab) 20 mg PO HS STEFFANIE Stop: 10/01/21 21:59 Last Admin: 09/01/21 22:56 Dose: Not Given Documented by: Bismuth Subsalicylate (Bismuth Subsalicylate Liqd 236 Ml) 15 ml PO PRN PRN PRN Reason: Loose Stool Stop: 10/01/21 18:40 Hydroxyzine HCl (Hydroxyzine Hcl 25 Mg Tab) 50 mg PO HSZ PRN PRN Reason: Insomnia Stop: 10/01/21 18:40 Last Admin: 09/01/21 20:48 Dose: 50 mg Documented by: Hydroxyzine HCl (Hydroxyzine Hcl 25 Mg Tab) 25 mg PO Q4H PRN PRN Reason: Anxiety Stop: 10/01/21 18:40 Levothyroxine Sodium (Levothyroxine Sodium 75 Mcg Tablet) 75 mcg PO DAILYBB [facility] Stop: 10/02/21 07:59 Last Admin: 09/02/21 08:30 Dose: 75 mcg Documented by: Magnesium Hydroxide (Magnesium Hydroxide Susp 30 Ml Udc) 30 ml PO DAILY PRN PRN Reason: Constipation Stop: 10/01/21 18:40 Melatonin (Melatonin 3 Mg Tab) 3 mg PO HS PRN PRN Reason: Sleep Stop: 10/01/21 19:52 Last Admin: 09/01/21 20:49 Dose: 3 mg Documented by: Meloxicam (Meloxicam 7.5 Mg Tab) 15 mg PO DAILY PRN PRN Reason: pain Stop: 10/01/21 19:53 Mirtazapine (Mirtazapine Tab 15 Mg Tab) 7.5 mg PO HS PRN PRN Reason: nausea/insomnia Stop: 10/01/21 21:59 Ondansetron HCl (Ondansetron 4 Mg Od Tab) 4 mg PO DAILY STEFFANIE Stop: 10/02/21 08:59 Last Admin: 09/02/21 09:11 Dose: 4 mg Documented by: Propranolol HCl (Propranolol Hcl 10 Mg Tab) 10 mg PO BID PRN PRN Reason: Anxiety/Agitation Stop: 10/01/21 20:59 Sodium Chloride (Sodium Chloride 0.65% Na Soln 45 Ml ([place])) 1 - 2 sprays NA PRN PRN PRN Reason: Nasal Dryness/Congestion Stop: 10/01/21 18:40 Tramadol HCl (Tramadol Hcl 50 Mg Tablet) 50 mg PO Q8H PRN PRN Reason: Pain Stop: 10/01/21 19:53 Last Admin: 09/02/21 09:45 Dose: 50 mg Documented by: Vitamin D (Cholecalciferol 1,000 Units 25 Mcg Tab) 1,000 units PO DAILY STEFFANIE Stop: 10/02/21 08:59 Last Admin: 09/02/21 09:10 Dose: 1,000 units Documented by:
[2021-09-02] MEDS: MIRTAZAPINE TAB 15 MG TAB PO SCH (20:34)
[2021-09-02] MEDS: PROPRANOLOL HCL 10 MG TAB PO SCH (20:34)
[2021-09-02] MEDS: ATORVASTATIN 20 MG TAB PO SCH (20:34)
[2021-09-02] MEDS: GABAPENTIN 600 MG TAB PO SCH (20:35)
[2021-09-03] MEDS: PROPRANOLOL HCL 10 MG TAB PO SCH ×2 (09:47→21:09)
[2021-09-03] MEDS: ONDANSETRON 4 MG OD TAB PO SCH (09:48)
[2021-09-03] MEDS: LEVOTHYROXINE SODIUM 75 MCG TABLET PO SCH (09:48)
[2021-09-03] MEDS: ADVANCED PROBIOTIC 1250 MG CAPSULE PO SCH (09:48)
[2021-09-03] MEDS: CHOLECALCIFEROL 1,000 UNITS 25 MCG TAB PO SCH (09:48)
[2021-09-03] MEDS: GABAPENTIN 600 MG TAB PO SCH ×3 (09:48→21:08)
--- NOTE | 2021-09-03 10:58 | Psychiatric Progress Note ---
Date of Service September 03, 2021 Impression / Recommendations Impression The patient is a 70 year old with a history of depression and anxiety who was admitted for worsening depression and SI with plan on a 201 commitment. Diagnostically consistent with MDD, recurrent with anxious distress as well as PTSD and CHESTER. The patient is deemed unstable and requires psychiatric hospitalization for diagnostic clarification, safety and stabilization, medication management and development of further coping skills. as per Dr. Martinez above. 09/03/21: minimal improvement, appears to have conjunctivities (1) Major depressive disorder, recurrent episode with anxious distress: (2) Post traumatic stress disorder (PTSD): (3) Generalized anxiety disorder: 09/03/21: continue current meds, monitor GI issues, add Bleph 10 drops for conjunctivitis. If either issues persistent get medical consult. 09/02/21: The patient was admitted to the [facility] ([facility] unit) on q15 min checks (behavioral with suicide precautions) for safety. The patient will participate in group, recreational, and milieu therapies and will be offered additional individual and family sessions as clinically appropriate. -SW will work on referral for outpatient therapy with CBT focus; she is also agreeable to follow-up with her PCP for stomach pain -Continue prior to admission tramadol, atorvastatin, levothyroxine, gabapentin and zofran prn for recent nausea -Start mirtazapine 7.5 mg qhs -Start propranolol 10mg BID for anxiety -Add probiotic Inventory Assets Strengths: strong family support, long history of outpatient stability Needs: additional coping skills, medication adjustments Risk Factors Assessment Male: No : Yes Do You Have Access To A Gun?: No Health Problems: Yes Mental Health Diagnoses: Yes Substance Use Disorders: No Previous Attempt: No Family History of Suicide: No Previous Psychiatric Hospitalization: No Hopelessness: Yes Smoker: No Protective Factors Assessment Employed: No Interval History Identifying Information SALVATORE FENG is a 70-year-old woman who currently lives alone, has a history of depression, anxiety, chronic back pain d/t scoliosis, osteoporosis, HTN and GERD, and was admitted on 09/01/21 18:41 on a 201 voluntary commitment for worsening depression and SI with plan of overdosing. Chief Complaint "I think I'd do better at home but I do want to know what you all think of my meds". Review of Systems Sleep Information Total Hours of Sleep: 7.25 Sleep Comments: pt on q-15 minute checks Meal Information Percent Meal Consumed - Breakfast: 10 Percent Meal Consumed - Lunch: 25 Percent Meal Consumed - Dinner: 75 Subjective Subjective Patient was seen & assessed and interval progress reviewed with nursing and social work. The patient reports having loose stool bordering on fecal incontinence yesterday (prior to new med start) and did receive 1 dose of Kaopectate. States she is not hungry but did eat breakfast late. She reports acute onset of itching and scleral injection last pm with "I just have to rub as feels like I need to get something out". Worse on left than right. No drainage noted. Physical Exam Psychiatric Orientation: alert and oriented x 3 Apperance: appropriately dressed and appropriately groomed Eye Contact: good eye contact Motor Behavior: no abnormal motor movements Speech: normal rate/rhythm/volume of speech Affect: + depressed affect Mood: + depressed mood and + anxious mood Thought Process: goal directed thought process Thought Content: reality based without delusions Suicidal Thoughts: denies suicidal plan and denies suicidal intent; + reports suicidal thoughts (intermittent SI, none today and feels safe in the hospital) Homicidal Thoughts: denies homicidal thoughts Hallucinations: no auditory hallucinations and no visual hallucinations Cognition: recent memory grossly intact, remote memory grossly intact, attention grossly intact and language grossly intact Estimated Intelligence: consistent with education level Insight: + limited insight Vital Signs (Past 24 Hours) Last Vital Signs Temp 36.7 C 09/03/21 06:31 Pulse 80 09/03/21 06:33 Resp 16 09/03/21 06:31 BP 121/81 09/03/21 06:33 Pulse Ox 97 09/01/21 19:37 Results & Data ([facility]) Current Inpatient Medications Current Inpatient Medications: Current Inpatient Medications Acetaminophen (Acetaminophen 325 Mg Tab) 650 mg PO Q4H PRN PRN Reason: Headache or Minor Fever Stop: 10/01/21 18:40 Last Admin: 09/02/21 09:45 Dose: 650 mg Documented by: Al Hydrox/Mg Hydrox/Simethicone (Aluminum/Magnesium Susp 30 Ml Udc) 30 ml PO Q4H PRN PRN Reason: GI Upset Stop: 10/01/21 18:40 Atorvastatin Calcium (Atorvastatin 20 Mg Tab) 20 mg PO HS STEFFANIE Stop: 10/01/21 21:59 Last Admin: 09/02/21 20:34 Dose: 20 mg Documented by: Bismuth Subsalicylate (Bismuth Subsalicylate Liqd 236 Ml) 15 ml PO PRN PRN PRN Reason: Loose Stool Stop: 10/01/21 18:40 Last Admin: 09/02/21 19:09 Dose: 15 ml Documented by: Gabapentin (Gabapentin 600 Mg Tab) 600 mg PO TID STEFFANIE Stop: 10/02/21 20:59 Last Admin: 09/03/21 09:48 Dose: 600 mg Documented by: Hydroxyzine HCl (Hydroxyzine Hcl 25 Mg Tab) 50 mg PO HSZ PRN PRN Reason: Insomnia Stop: 10/01/21 18:40 Last Admin: 09/01/21 20:48 Dose: 50 mg Documented by: Hydroxyzine HCl (Hydroxyzine Hcl 25 Mg Tab) 25 mg PO Q4H PRN PRN Reason: Anxiety Stop: 10/01/21 18:40 Lactobacillus Acidophilus (Advanced Probiotic 1250 Mg Capsule) 2 cap PO DAILY STEFFANIE Stop: 10/03/21 08:59 Last Admin: 09/03/21 09:48 Dose: 2 cap Documented by: Levothyroxine Sodium (Levothyroxine Sodium 75 Mcg Tablet) 75 mcg PO DAILYBB STEFFANIE Stop: 10/02/21 07:59 Last Admin: 09/03/21 09:48 Dose: 75 mcg Documented by: Magnesium Hydroxide (Magnesium Hydroxide Susp 30 Ml Udc) 30 ml PO DAILY PRN PRN Reason: Constipation Stop: 10/01/21 18:40 Melatonin (Melatonin 3 Mg Tab) 3 mg PO HS PRN PRN Reason: Sleep Stop: 10/01/21 19:52 Last Admin: 09/01/21 20:49 Dose: 3 mg Documented by: Meloxicam (Meloxicam 7.5 Mg Tab) 15 mg PO DAILY PRN PRN Reason: pain Stop: 10/01/21 19:53 Mirtazapine (Mirtazapine Tab 15 Mg Tab) 7.5 mg PO HS STEFFANIE Stop: 10/02/21 21:59 Last Admin: 09/02/21 20:34 Dose: 7.5 mg Documented by: Ondansetron HCl (Ondansetron 4 Mg Od Tab) 4 mg PO DAILY STEFFANIE Stop: 10/02/21 08:59 Last Admin: 09/03/21 09:48 Dose: 4 mg Documented by: Propranolol HCl (Propranolol Hcl 10 Mg Tab) 10 mg PO BID STEFFANIE Stop: 10/02/21 20:59 Last Admin: 09/03/21 09:47 Dose: 10 mg Documented by: Sodium Chloride (Sodium Chloride 0.65% Na Soln 45 Ml ([place])) 1 - 2 sprays NA PRN PRN PRN Reason: Nasal Dryness/Congestion Stop: 10/01/21 18:40 Sulfacetamide Sodium (Sulfacetamide Sodium 10% Op Soln 15 Ml Btl) 1 drops OP QID STEFFANIE Stop: 10/08/21 12:59 Tramadol HCl (Tramadol Hcl 50 Mg Tablet) 50 mg PO Q8H PRN PRN Reason: Pain Stop: 10/01/21 19:53 Last Admin: 09/02/21 20:35 Dose: 50 mg Documented by: Vitamin D (Cholecalciferol 1,000 Units 25 Mcg Tab) 1,000 units PO DAILY STEFFANIE Stop: 10/02/21 08:59 Last Admin: 09/03/21 09:48 Dose: 1,000 units Documented by: Mental Health & Subst Abuse Tx Therapist Name of Therapist: None Petroleum Transport Driver Name of Petroleum Transport Driver: None Post Discharge Appointments Primary Care Physician Name Of Family Doctor: Dr. Meredith Bentley Primary Care Date of Appointment with PCP: 09/05/21 Time of Appointment with PCP: 2:00 PM Provider Appointment Comment: [id number] [place] [address] Contact Information Discharge Discharge Address: [address] [place] [address] [place] [id number]
[2021-09-03] MEDS ORDERED: SULFACETAMIDE SODIUM 10% OP SOLN 15 ML BTL OP SCH (13:00)
[2021-09-03] MEDS: SULFACETAMIDE SODIUM 10% OP SOLN 15 ML BTL OPB SCH ×2 (18:06→21:09)
[2021-09-03] MEDS: ATORVASTATIN 20 MG TAB PO SCH (21:10)
[2021-09-03] MEDS: MIRTAZAPINE TAB 15 MG TAB PO SCH (21:10)
[2021-09-04] MEDS: ADVANCED PROBIOTIC 1250 MG CAPSULE PO SCH (08:43)
[2021-09-04] MEDS: ONDANSETRON 4 MG OD TAB PO SCH (08:43)
[2021-09-04] MEDS: GABAPENTIN 600 MG TAB PO SCH ×3 (08:43→22:13)
[2021-09-04] MEDS: LEVOTHYROXINE SODIUM 75 MCG TABLET PO SCH (08:44)
[2021-09-04] MEDS: CHOLECALCIFEROL 1,000 UNITS 25 MCG TAB PO SCH (08:45)
[2021-09-04] MEDS: PROPRANOLOL HCL 10 MG TAB PO SCH (08:45)
[2021-09-04] MEDS: SULFACETAMIDE SODIUM 10% OP SOLN 15 ML BTL OPB SCH ×4 (08:51→22:14)
[2021-09-04] MEDS ORDERED: ONDANSETRON 4 MG OD TAB PO PRN (09:39)
--- NOTE | 2021-09-04 09:45 | Psychiatric Progress Note ---
Date of Service September 04, 2021 Impression / Recommendations Impression The patient is a 70 year old with a history of depression and anxiety who was admitted for worsening depression and SI with plan on a 201 commitment. Diagnostically consistent with MDD, recurrent with anxious distress as well as PTSD and CHESTER. The patient is deemed unstable and requires psychiatric hospitalization for diagnostic clarification, safety and stabilization, medication management and development of further coping skills. as per Dr. Martinez above. 09/04/21: improving, D resolving (1) Major depressive disorder, recurrent episode with anxious distress: (2) Post traumatic stress disorder (PTSD): (3) Generalized anxiety disorder: 09/04/21: change Zofran to prn, initial ED contacted had recommended a stool PCR but she was not able to provide a sample, will attempt to obtain prior to discharge for completeness as following up with PCP. D/C propranolol in favor of atenolol. Will dose am and pm meal for best coverage of her anxiety. She is agreeable to titrate Remeron to standard starting dose of 15 mg po qhs. 09/03/21: continue current meds, monitor GI issues, add Bleph 10 drops for conjunctivitis. If either issues persistent get medical consult. 09/02/21: The patient was admitted to the [facility] ([facility] inpatient mental health unit) on q15 min checks (behavioral with suicide precautions) for safety. The patient will participate in group, recreational, and milieu therapies and will be offered additional individual and family sessions as clinically appropriate. -SW will work on referral for outpatient therapy with CBT focus; she is also agreeable to follow-up with her PCP for stomach pain -Continue prior to admission tramadol, atorvastatin, levothyroxine, gabapentin and zofran prn for recent nausea -Start mirtazapine 7.5 mg qhs -Start propranolol 10mg BID for anxiety -Add probiotic Inventory Assets Strengths: strong family support, long history of outpatient stability Needs: additional coping skills, medication adjustments Risk Factors Assessment Male: No : Yes Do You Have Access To A Gun?: No Health Problems: Yes Mental Health Diagnoses: Yes Substance Use Disorders: No Previous Attempt: No Family History of Suicide: No Previous Psychiatric Hospitalization: No Hopelessness: Yes Smoker: No Protective Factors Assessment Employed: No Interval History Identifying Information SALVATORE EFNG is a 70-year-old woman who currently lives alone, has a history of depression, anxiety, chronic back pain d/t scoliosis, osteoporosis, HTN and GERD, and was admitted on 09/01/21 18:41 on a 201 voluntary commitment for worsening depression and SI with plan of overdosing. Chief Complaint "I'm feeling some better". Review of Systems Sleep Information Total Hours of Sleep: 6 Sleep Comments: pt on q-15 minute checks Meal Information Percent Meal Consumed - Breakfast: 75 Percent Meal Consumed - Lunch: 25 Percent Meal Consumed - Dinner: 85 Subjective Subjective Patient was seen & assessed and interval progress reviewed with nursing and social work. She reports no further BM since D yesterday am. She is staying in touch with her son. Her eye discomfort is much improved with Bleph 10. Her sleep is well and would still prefer to be on atenolol rather than propranolol given past experience. Physical Exam Psychiatric Orientation: alert and oriented x 3 Apperance: appropriately dressed and appropriately groomed Eye Contact: good eye contact Motor Behavior: no abnormal motor movements Speech: normal rate/rhythm/volume of speech Affect: + depressed affect Mood: + anxious mood Thought Content: reality based without delusions Suicidal Thoughts: denies suicidal thoughts Homicidal Thoughts: denies homicidal thoughts Hallucinations: no auditory hallucinations and no visual hallucinations Cognition: recent memory grossly intact, remote memory grossly intact, attention grossly intact and language grossly intact Estimated Intelligence: consistent with education level Vital Signs (Past 24 Hours) Last Vital Signs Temp 36.9 C 09/04/21 06:27 Pulse 73 09/04/21 06:27 Resp 16 09/04/21 06:27 BP 121/83 09/04/21 06:27 Pulse Ox 97 09/01/21 19:37 Results & Data ([facility]) Current Inpatient Medications Current Inpatient Medications: Current Inpatient Medications Acetaminophen (Acetaminophen 325 Mg Tab) 650 mg PO Q4H PRN PRN Reason: Headache or Minor Fever Stop: 10/01/21 18:40 Last Admin: 09/02/21 09:45 Dose: 650 mg Documented by: Al Hydrox/Mg Hydrox/Simethicone (Aluminum/Magnesium Susp 30 Ml Udc) 30 ml PO Q4H PRN PRN Reason: GI Upset Stop: 10/01/21 18:40 Atenolol (Atenolol 25 Mg Tablet) 25 mg PO BIDM STEFFANIE Stop: 10/04/21 17:44 Atorvastatin Calcium (Atorvastatin 20 Mg Tab) 20 mg PO HS STEFFANIE Stop: 10/01/21 21:59 Last Admin: 09/03/21 21:10 Dose: 20 mg Documented by: Bismuth Subsalicylate (Bismuth Subsalicylate Liqd 236 Ml) 15 ml PO PRN PRN PRN Reason: Loose Stool Stop: 10/01/21 18:40 Last Admin: 09/02/21 19:09 Dose: 15 ml Documented by: Gabapentin (Gabapentin 600 Mg Tab) 600 mg PO TID STEFFANIE Stop: 10/02/21 20:59 Last Admin: 09/04/21 08:43 Dose: 600 mg Documented by: Hydroxyzine HCl (Hydroxyzine Hcl 25 Mg Tab) 50 mg PO HSZ PRN PRN Reason: Insomnia Stop: 10/01/21 18:40 Last Admin: 09/01/21 20:48 Dose: 50 mg Documented by: Hydroxyzine HCl (Hydroxyzine Hcl 25 Mg Tab) 25 mg PO Q4H PRN PRN Reason: Anxiety Stop: 10/01/21 18:40 Lactobacillus Acidophilus (Advanced Probiotic 1250 Mg Capsule) 2 cap PO DAILY STEFFANIE Stop: 10/03/21 08:59 Last Admin: 09/04/21 08:43 Dose: 2 cap Documented by: Levothyroxine Sodium (Levothyroxine Sodium 75 Mcg Tablet) 75 mcg PO DAILYBB [facility] Stop: 10/02/21 07:59 Last Admin: 09/04/21 08:44 Dose: 75 mcg Documented by: Magnesium Hydroxide (Magnesium Hydroxide Susp 30 Ml Udc) 30 ml PO DAILY PRN PRN Reason: Constipation Stop: 10/01/21 18:40 Melatonin (Melatonin 3 Mg Tab) 3 mg PO HS PRN PRN Reason: Sleep Stop: 10/01/21 19:52 Last Admin: 09/01/21 20:49 Dose: 3 mg Documented by: Meloxicam (Meloxicam 7.5 Mg Tab) 15 mg PO DAILY PRN PRN Reason: pain Stop: 10/01/21 19:53 Mirtazapine (Mirtazapine Tab 15 Mg Tab) 15 mg PO HS [facility] Stop: 10/04/21 21:59 Ondansetron HCl (Ondansetron 4 Mg Od Tab) 4 mg PO Q8 PRN PRN Reason: nausea Stop: 10/04/21 09:36 Sodium Chloride (Sodium Chloride 0.65% Na Soln 45 Ml ([place])) 1 - 2 sprays NA PRN PRN PRN Reason: Nasal Dryness/Congestion Stop: 10/01/21 18:40 Sulfacetamide Sodium (Sulfacetamide Sodium 10% Op Soln 15 Ml Btl) 1 drops OPB QID STEFFANIE Stop: 10/03/21 16:59 Last Admin: 09/04/21 08:51 Dose: 1 drops Documented by: Tramadol HCl (Tramadol Hcl 50 Mg Tablet) 50 mg PO Q8H PRN PRN Reason: Pain Stop: 10/01/21 19:53 Last Admin: 09/02/21 20:35 Dose: 50 mg Documented by: Vitamin D (Cholecalciferol 1,000 Units 25 Mcg Tab) 1,000 units PO DAILY STEFFANIE Stop: 10/02/21 08:59 Last Admin: 09/04/21 08:45 Dose: 1,000 units Documented by: Mental Health & Subst Abuse Tx Therapist Name of Therapist: None Process Developer Name of Process Developer: None Post Discharge Appointments Primary Care Physician Name Of Family Doctor: Dr. Meredith Bentley Primary Care Date of Appointment with PCP: 09/05/21 Time of Appointment with PCP: 2:00 PM Provider Appointment Comment: [place] [phone] Contact Information Discharge Discharge Address: [address] [place] [address] [place] [id number]
[2021-09-04] MEDS: traMADol HCL 50 MG TABLET PO PRN ×2 (11:18→22:28)
[2021-09-04 12:52] LABS: Adenovirus F 40/41 PCR Not Detected (NotDetected); Astrovirus PCR Not Detected (NotDetected); Campylobacter PCR Not Detected (NotDetected); Clostridium diff Toxin A/B PCR Not Detected (NotDetected); Cryptosporidium PCR Not Detected (NotDetected); Cyclospora cayetanensis PCR Not Detected (NotDetected); Entamoeba histolytica PCR Not Detected (NotDetected); Enteroaggregative E.coli(EAEC) Not Detected (NotDetected); Enteropathogenic E.coli (EPEC) Not Detected (NotDetected); Enterotoxigenic E.coli (ETEC) Not Detected (NotDetected); Giardia lamblia PCR Not Detected (NotDetected); Norovirus GI/GII PCR Not Detected (NotDetected); Plesiomonas shigelloides PCR Not Detected (NotDetected); Rotavirus A PCR Not Detected (NotDetected); Salmonella PCR Not Detected (NotDetected); Sapovirus PCR Not Detected (NotDetected); Shiga-like Toxin E.coli (STEC) Not Detected (NotDetected); Shigella/Enteroinvasive E.coli Not Detected (NotDetected); Vibrio cholerae PCR Not Detected (NotDetected); Vibrio species PCR Not Detected (NotDetected); Yersinia enterocolitica PCR Not Detected (NotDetected)
[2021-09-04] MEDS: ATENOLOL 25 MG TABLET PO SCH (18:17)
[2021-09-04] MEDS ORDERED: MIRTAZAPINE TAB 15 MG TAB PO SCH (22:00)
[2021-09-04] MEDS: ATORVASTATIN 20 MG TAB PO SCH (22:13)
[2021-09-05] MEDS: CHOLECALCIFEROL 1,000 UNITS 25 MCG TAB PO SCH (09:01)
[2021-09-05] MEDS: ADVANCED PROBIOTIC 1250 MG CAPSULE PO SCH (09:01)
[2021-09-05] MEDS: ATENOLOL 25 MG TABLET PO SCH (09:02)
[2021-09-05] MEDS: SULFACETAMIDE SODIUM 10% OP SOLN 15 ML BTL OPB SCH (09:02)
[2021-09-05] MEDS: GABAPENTIN 600 MG TAB PO SCH (09:02)
[2021-09-05] MEDS: LEVOTHYROXINE SODIUM 75 MCG TABLET PO SCH (09:02)
[2021-09-05] MEDS: traMADol HCL 50 MG TABLET PO PRN (09:11)
--- NOTE | 2021-09-05 09:54 | Discharge Summary ---
Date of Service September 05, 2021 History of Present Illness As per Dr. Martinez on admission: Francoise reports worsening depression and anxiety in the context of multiple stressors including recently placing her mother in a group home facility, the stress of caring for her mother, chronic back pain due to her scoliosis, worsening gastrointestinal distress including diarrhea & nausea, and recently discontinuing her psychiatric medications in June. She describes stopping her medication after feeling like she had been on multiple different medications recently causing her "head to spin". She notes frustration at changing medications and now feels a desire to avoid psychiatric medications. Since stopping the medications she has felt more restless, her mood symptoms have worsened and she has been experiencing diarrhea and headaches. She endorses symptoms of depression including hopelessness, helplessness, low self-worth, insomnia, decreased appetite and anhedonia. She also endorses increased anxiety with periods of restlessness, ruminative thoughts and panic attacks vs post menopausal symptoms with hot flashes. She has been having SI with thoughts of overdosing or intentionally crashing her car. On Sunday the SI intensified to the point that she had been collecting pills she could take and wrote a suicide note which she states developed in the context of severe anxiety and feeling like she was going to "jumpl out of my skin". She then was able to fall asleep and presenting to the ED on Sunday for her headache and stomach issues and then again yesterday for help regarding her anxiety and mood. She does note having many reasons to live including her sons and her grandchildren whom she loves but continues to experience SI and wishes that she could be injected with something that would allow her to . Today she is feeling "a bit better" with no SI today. She notes feeling overwhelmed at times from dealing with her mother's worsening health condition and experiencing "mood swings" throughout the day which seem to be related to experiencing "a second wave of menopause". Psychiatric ROS notable for no history of pantera, no history psychosis, no history of substance use. Physical Exam Psychiatric See admission H&P and DOD assessment. Vital Signs (Past 24 Hours) Last Vital Signs Temp 36.7 C 09/05/21 06:37 Pulse 73 09/05/21 06:37 Resp 16 09/05/21 06:37 BP 108/69 09/05/21 06:37 Pulse Ox 97 09/01/21 19:37 Principal Diagnosis major depressive disorder Psychiatric Data See daily stay summary. In short, safety was maintained and the patient was cooperative with care. Medication changes included initiation or propranolol and Remeron to address anxiety and sleep issues and they tolerated this well but preferred to be on atenolol as they had taken it previously. She declined a family session with her son. She is requesting discharge and there is no indication for involuntary hold as no evidence or psychosis or pantera interfering with her medical decision making and she has consistently denied suicidal ideation. She verbalized significant improvement during her stay and a safety plan was completed prior to discharge. She was started on Bleph 10 eye drops for conjunctivitis that significantly reduced her discomfort and scleral injection has resolved. She has an appointment with her PCP this afternoon, unless otherwise directed she will continue the drops for 5 more days. 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 Her diarrhea essentially resolved following 1 dose of Kaopectate but since she had not completed stool PCR in ED it was ordered here and was negative. Day of Discharge Assessment Today the patient voices readiness for discharge. They note improvement in mood and deny thoughts to harm self or others. Thoughts remain organized and they are improved from admission. There is no evidence of psychosis. They agree to take mediations as prescribed and keep follow-up appointments. They are stable for discharge to outpatient level of care. Transition of Care Transition Of Care Record: was reviewed with the patient Advance Directives Advance Directives Information Provided: No Advance Directives: No Mental Health Advance Directive: No Advance Directives on File: No Living Will: No Power of Research Group Director: No Advance Directives Reason:: Declines as Mental Health Visit. Risk Factors Assessment Male: No : Yes Do You Have Access To A Gun?: No Health Problems: Yes Mental Health Diagnoses: Yes Substance Use Disorders: No Previous Attempt: No Family History of Suicide: No Previous Psychiatric Hospitalization: No Hopelessness: Yes Smoker: No Protective Factors Assessment Employed: No Tobacco Cessation at Discharge Tobacco Cessation Medication Prescribed at Discharge: Not Applicable/Non-Smoker Total Time Total Time Spent: Greater Than 30 Minutes Total Time Includes: Examination of the patient, Discharge Planning and Medication Reconciliation Discharge Data Lab Results 09/01/21 09/01/21 09/01/21 14:05 14:05 16:40 Urine Color Dark Yellow Urine Appearance Clear Urine pH 5.5 Ur Specific Tower 1.038 H Urine Protein Trace H Urine Glucose (UA) Negative Urine Ketones 4+ H Urine Blood Negative Urine Nitrite Negative Urine Bilirubin 1+ H Urine Urobilinogen Negative Ur Leukocyte Esterase Trace H Urine WBC (Auto) 10-30 H Urine RBC (Auto) 0-4 U Hyaline Cast (Auto) 10-30 H U Epithel Cells (Auto) >30 H Urine Bacteria (Auto) Negative Stl C. cayetanensis PCR Stool Rotavirus A PCR Stl Adenov F PCR Stool Astrovirus (PCR) Stool Campylobacter PCR Stl C. diff Tox A/B PCR Stool Cryptosporidium PCR Stl E.coli Shiga Tox PCR Stl Enterotoxigenic E PCR Stool EPEC (PCR) Stool EAEC (PCR) Stl E. histolytica PCR Stool Giardia Lamblia PCR Stool Salmonella PCR Stool Sapovirus (PCR) Stl P. shigelloides PCR Stl Shigella/EIEC PCR St Y.enterocolitica PCR Stool Vibrio (PCR) Stl Vibrio cholerae PCR Stl Norovirus GI/GII PCR Salicylates Urine Opiates Screen Neg Ur Methadone, Qual Neg Acetaminophen Urine Barbiturates Neg Ur Phencyclidine (PCP) Neg U Amphetamin/Meth Scrn Neg MDMA (Ecstasy) Screen Neg U Benzodiazepines Scrn Neg Ur Cocaine Metabolite Neg U Marijuana (THC) Screen Neg SARS-CoV-2, RNA, NAAT NEGATIVE 09/01/21 09/04/21 16:44 Unknown Urine Color Urine Appearance Urine pH Ur Specific Tower Urine Protein Urine Glucose (UA) Urine Ketones Urine Blood Urine Nitrite Urine Bilirubin Urine Urobilinogen Ur Leukocyte Esterase Urine WBC (Auto) Urine RBC (Auto) U Hyaline Cast (Auto) U Epithel Cells (Auto) Urine Bacteria (Auto) Stl C. cayetanensis PCR Not Detected Stool Rotavirus A PCR Not Detected Stl Adenov PCR Not Detected Stool Astrovirus (PCR) Not Detected Stool Campylobacter PCR Not Detected Stl C. diff Tox A/B PCR Not Detected Stool Cryptosporidium PCR Not Detected Stl E.coli Shiga Tox PCR Not Detected Stl Enterotoxigenic E PCR Not Detected Stool EPEC (PCR) Not Detected Stool EAEC (PCR) Not Detected Stl E. histolytica PCR Not Detected Stool Giardia Lamblia PCR Not Detected Stool Salmonella PCR Not Detected Stool Sapovirus (PCR) Not Detected Stl P. shigelloides PCR Not Detected Stl Shigella/EIEC PCR Not Detected St Y.enterocolitica PCR Not Detected Stool Vibrio (PCR) Not Detected Stl Vibrio cholerae PCR Not Detected Stl Norovirus GI/GII PCR Not Detected Salicylates < 3.0 L Urine Opiates Screen Ur Methadone, Qual Acetaminophen 6 L Urine Barbiturates Ur Phencyclidine (PCP) U Amphetamin/Meth Scrn MDMA (Ecstasy) Screen U Benzodiazepines Scrn Ur Cocaine Metabolite U Marijuana (THC) Screen SARS-CoV-2, RNA, NAAT Hospital Course (1) Major depressive disorder, recurrent episode with anxious distress: (2) Post traumatic stress disorder (PTSD): (3) Generalized anxiety disorder: 09/04/21: change Zofran to prn, initial ED contacted had recommended a stool PCR but she was not able to provide a sample, will attempt to obtain prior to discharge for completeness as following up with PCP. D/C propranolol in favor of atenolol. Will dose am and pm meal for best coverage of her anxiety. She is agreeable to titrate Remeron to standard starting dose of 15 mg po qhs. 09/03/21: continue current meds, monitor GI issues, add Bleph 10 drops for conjunctivitis. If either issues persistent get medical consult. 09/02/21: The patient was admitted to the [facility] [place] [place] [facility] [place] on q15 min checks (behavioral with suicide precautions) for safety. The patient will participate in group, recreational, and milieu therapies and will be offered additional individual and family sessions as clinically appropriate. -SW will work on referral for outpatient therapy with CBT focus; she is also agreeable to follow-up with her PCP for stomach pain -Continue prior to admission tramadol, atorvastatin, levothyroxine, gabapentin and zofran prn for recent nausea -Start mirtazapine 7.5 mg qhs -Start propranolol 10mg BID for anxiety -Add probiotic Mental Health & Subst Abuse Tx Psychiatrist Name of Psychiatrist: Javier Kay Psychiatrist's Date of Appointment with Psychiatrist: 10/05/21 Time of Appointment with Psychiatrist: 1:15pm Psychiatric Appointment Comment: [address] [place], [place] Therapist Name of Therapist: Samir Please follow up tomorrow if they don't reach out first Therapist's Therapy Appointment Comment: [address], [place], [place] Mica Paster Name of Mica Paster: None Post Discharge Appointments Primary Care Physician Name Of Family Doctor: Dr. Meredith Bentley Primary Care Date of Appointment with PCP: 09/05/21 Time of Appointment with PCP: 2:00 PM Provider Appointment Comment: [address] [place] [address] Smoking Cessation Counseling Tobacco Cessation Medication Prescribed at Discharge: Not Applicable/Non-Smoker Contact Information Discharge Discharge [address]: [address] [place] [address] [place] [address] Discharge Plan Discharge Items Patient Disposition: Home - Self-Care Reason For Visit: MDD Discharge Diagnosis: major depressive disorder Activity: Resume your previous activity Non-emergency contact: Primary Care Provider, Psychiatrist and Therapist Call non-emergency contact if: you have any medication questions Follow-up/Referrals: Meredith Lind DO [Primary Care Provider] - Diet: Regular Addtl Attending Provider Instructions: SPECIAL CARE INSTRUCTIONS: 1. Follow through with your scheduled aftercare appointments. If unable to keep an appointment, please call to reschedule. 2. Take your medication only as prescribed. Medication should not be changed or stopped without the approval of your doctor. In the event of worsening symptoms or concerns about side effects, contact your doctor immediately. 3. Utilize new healthy coping skills, anger management skills, and stress management skills learned during your hospitalization. Journal feelings and process them with a support person. Identify stressors or situations that may result in relapse, deterioration or inappropriate behaviors and develop a plan to deal with those issues. 4. If your coping skills are ineffective and you are in crisis, contact your outpatient providers for direction. If unable to reach your providers, please call the [facility] CRISIS LINE AT , go to the [facility] walk-in center at [address], [address], [place], or go to the closest Emergency Room. 5. Avoid alcohol and un-prescribed drugs. 6. You have been provided with the Mental Health Advance Directives Pamphlet for your review. 7. Your condition is stable for discharge to outpatient level of care, but recovery is an ongoing process. Ifthoughts to harm yourself or others return, follow the safety plan developed during your stay. Planning for a safe return home includes securing weapons. Our treatment team recommends weaponsbe removed from the home until your outpatient provider reassesses your progress. In rare cases where the items themselvescannot be removed, guns and ammunitionshould be secured separatelyand keys stored by a reliable personoutside of the home. If you were admitted on an involuntary commitment, the police or other legal authorities may be involved in this process. AFTERCARE APPOINTMENTS: * Please call your insurance company prior to your scheduled appointment to confirm your aftercare providers are covered. Take your insurance information to your appointments. WHO TO CALL AND WHEN: Medical Emergencies: For questions or emergencies related to your hospital stay, please contact the Inpatient Behavioral Health Unit at [phone]. A combine mechanic is on-call 12/02 for the Behavioral Health Unit for emergencies At any time you feel your situation is an emergency, you may also call 911 immediately. Pending Studies at Discharge: No Stand-Alone Forms: My [facility], Smoking Cessation Medications and DC Order Prescriptions: New gabapentin 600 mg Tablet 600 mg PO TID Qty: 1 RF: 0 mirtazapine 15 mg Tablet 15 mg PO HS Qty: 30 RF: 0 sulfacetamide sodium 10 % Drops 1 drp OPB QID Qty: 5 RF: 0 melatonin 3 mg Tablet 3 mg PO HS PRN (Reason: sleep) Qty: 1 RF: 0 atenolol 25 mg Tablet 25 mg PO BIDM Qty: 60 RF: 0 Continued meloxicam 15 mg tablet 15 mg PO DAILY PRN (Reason: pain) Qty: 30 RF: 2 levothyroxine 75 mcg tablet 75 mcg PO QAM Qty: 90 RF: 3 atorvastatin 20 mg Tablet 20 mg PO HS RF: 0 tramadol 50 mg tablet 50 mg PO Q8H PRN (Reason: Pain) RF: 0 vitamin B complex Tablet 1 tab PO DAILY RF: 0 cholecalciferol (vitamin D3) [Vitamin D3] 25 mcg (1,000 unit) Tablet 75 mcg PO DAILY RF: 0 Changed ondansetron 4 mg tablet,disintegrating 4 mg PO DAILY PRN (Reason: nausea) 10 Days Qty: 5 RF: 0 Discharge Orders: Discharge Order (Routine); Ordered 09/05/21 Ordered By: Adela Renner Admission Data Admit Date/Time: 09/01/21 18:41 Attending Provider: Adela Renner Admit Provider: Cintia Martinez Primary Care Provider: Meredith Lind Other Interventions: Discharge Summary Assessment (RN) Last Done: 09/05/21 10:11 PSY Interdisciplinary Discharge Planning Last Done: 09/05/21 10:42 Coding Level of Care Code 00861 D/C day mgmt > 30 min Diagnoses Major depressive disorder, recurrent episode with anxious distress F33.9 Post traumatic stress disorder (PTSD) F43.10 Generalized anxiety disorder F41.1
== END 2021-09-05 11:20 | disposition home or self-care (01) | DRG 885 ==
LOC: ED 12:15 → 3S 18:41 → SUATTDRO 18:41 → 3S 19:06

== ENCOUNTER 2022-04-18 15:40 | Inpatient (IN) ==
--- NOTE | 2022-04-18 15:47 | ED Triage Note ---
Date of Service April 18, 2022 History of Present Illness This patient was briefly evaluated while in triage. An abbreviated physical exam was performed. This patient is a 71-year-old Female with past medical history of anxiety, N/V, diarrhea who presents to the ED accompanied by Jaja FERREIRA and her son for evaluation of "I don't feel good. My stomach" Pt. states symptoms started several weeks ago. When asked what's wrong with her stomach, she states "I'm just very sick." PD notes pt. made comments that "She would rather kill herself than feel like this. And she told my partner that if she wanted to do anything, it would be pretty easy." Pt. states "I told them before it's just related to nerves, stress, anxiety and it just got the best of me." Physical Exam VITALS: Vitals are noted on the nurse's note and reviewed by myself. GENERAL: This is a 71 year old white female, in no acute distress, nondiaphoretic, well-developed well-nourished. SKIN: No obvious rashes, edema, erythema HEAD: Normocephalic atraumatic. EYES: Conjunctivae without injection, sclerae without icterus. NECK: No JVD. LUNGS: No retractions or accessory muscle use. MUSCULOSKELETAL: Normal gait. NEURO: Patient was alert and oriented to person place and time. No focal neurological deficits. Initial orders for labs and / or imaging were placed and patient was placed in the waiting area until a bed is available. Please see further documentation for the full ED course.
[2022-04-18] MEDS ORDERED: FAMOTIDINE 20MG IV PUSH 20 MG/5 ML SYR IV STA (16:33)
--- NOTE | 2022-04-18 16:33 | Emergency Department Note ---
History of Present Illness General Chief complaint: Mental Health Evaluation Stated complaint: anxiety, stomach pain, diarrhea Time Seen by Provider: 04/18/22 15:58 History of Present Illness Maximum Pain Intensity: 8 71-year-old female presents to the ED with a chief complaint of epigastric abdominal pain for the past week and a half. She made some comments to police about ending her life because of the ongoing pain. She feels that she has a lot of stress, nerves and anxiety. The patient also has some chronic diarrhea issues. The patient was supposed to see the PCP today at 5:00 but could not wait because of her pain so she came to the ED for evaluation. The patient states that she is not sure who called police. The patient has been evaluated in the emergency department for these symptoms. She has had blood work as well as abdominal x-rays. She also has had a CT scan of the abdomen pelvis within the past 10 days.She did report that when she was given Ativan here, that seemed to help. She denies taking any acid reducing agents. She does report that her pain is sharp like a knife and comes and goes in short intervals. She has been taking Pepto-Bismol without relief. She did admit to me that she could end it all by cutting her wrist. Home Medications Medication Instructions Recorded Confirmed Type atorvastatin 20 mg tablet 20 mg PO HS 03/10/19 04/18/22 History tramadol 50 mg tablet 50 mg PO Q8H PRN Pain 12/03/20 04/18/22 History cholecalciferol (vitamin D3) 25 75 mcg PO DAILY 08/31/21 04/16/22 History mcg (1,000 unit) tablet (Vitamin D3) vitamin B complex 1 tab PO DAILY 08/31/21 04/16/22 History atenolol 25 mg tablet 25 mg PO BIDM #60 tabs 09/05/21 04/18/22 Rx melatonin 3 mg tablet 3 mg PO HS PRN sleep #1 tab 09/05/21 04/16/22 Rx levothyroxine 88 mcg tablet 88 mcg PO QAM 11/07/21 04/18/22 History promethazine 25 mg tablet 25 mg PO Q6H PRN nausea and 11/07/21 04/16/22 Rx vomiting #12 tabs triamcinolone acetonide 0.1 % 1 applic topical BID #30 grams 02/21/22 04/16/22 Rx topical ointment biotin 1 mg tablet 1 mg PO DAILY 03/12/22 04/16/22 History mirtazapine 30 mg tablet 30 mg PO HS 03/12/22 04/16/22 History sulfacetamide sodium 10 % eye drops 1 drp OPB BID PRN BURNY EYES 03/12/22 04/16/22 History ciprofloxacin HCl 500 mg tablet 500 mg PO AMHS 04/15/22 04/16/22 History gabapentin 600 mg tablet 600 mg PO BID 04/15/22 04/18/22 History hydrocodone 5 mg-acetaminophen 325 1 - 2 tab PO TID PRN Pain, Severe 04/15/22 04/16/22 History mg tablet meloxicam 15 mg tablet 15 mg PO QAM 04/15/22 04/18/22 History metoclopramide HCl 5 mg tablet 5 mg PO UD 04/15/22 04/16/22 History metronidazole 500 mg tablet 500 mg PO AMHS 04/15/22 04/16/22 History ondansetron HCl 4 mg tablet 4 mg PO Q8 PRN nausea and vomiting 04/15/22 04/16/22 History sertraline 100 mg tablet 100 mg PO QAM 04/15/22 04/18/22 History lorazepam 1 mg tablet (Ativan) 1 mg PO Q12H PRN anxiety #10 tabs 04/16/22 Rx Allergies Allergy/AdvReac Type Severity Reaction Status Date / Time No Known Allergies Allergy Verified 04/15/22 18:40 Past Med/Surg History Medical History Chronic low back pain Depression Generalized anxiety disorder GERD (gastroesophageal reflux disease) Hypercholesteremia Hypertension Major depressive disorder, recurrent episode with anxious distress Osteoporosis Post traumatic stress disorder (PTSD) Scoliosis Suicidal ideation Surgical History S/P hysterectomy Family History Other No known health problems Social History Smoking Status: Never smoker Second Hand Exposure: No; Hx Alcohol Use: No Hx Substance Use: No Preferred Language: Tajik Communication Ability: Effective Artillery Officer Required: No Beliefs That Will Affect Care: None Current Living Situation: Alone Feels Safe at Home: Yes Assistive Devices: Glasses Review of Systems A total of 10 systems reviewed and were otherwise negative Physical Exam Vital Signs Vital Signs - 24 hr 04/18/22 15:44 04/18/22 18:43 Temperature 36.8 C Temperature Source Oral Pulse Rate 96 H Pulse Rate [Right Finger] 58 L Respiratory Rate 20 20 Respiratory Effort / Characteristics Non-Labored Spontaneous Non-Labored Respiratory Depth Normal Normal Respiratory Pattern Regular Blood Pressure 174/60 H Blood Pressure [Right Arm] 171/87 H Blood Pressure Mean 98 Blood Pressure Mean [Right Arm] 115 Pulse Oximetry 97 98 Oxygen Delivery Method Room Air Room Air Sepsis Recent Fever Within 48 Hours No Sepsis New/Unexplained Change in Mental Status No Sepsis Action Taken by Nursing No Action Required CONSTITUTIONAL/VITAL SIGNS: Reviewed / noted above. GENERAL: Non-toxic in appearance. INTEGUMENTARY: Warm, dry, and [place]. HEAD: Normocephalic. EYES: without scleral icterus or trauma. ENT/OROPHARYNX: clear and moist. LYMPHADENOPATHY/NECK: Is supple without lymphadenopathy or meningismus. RESPIRATORY: Clear to auscultation bilaterally. No increased work of breathing. CARDIOVASCULAR: Regular rate and rhythm. GI/ABDOMEN: Soft and nontender. No organomegaly or pulsatile mass. EXTREMITIES: Warm and well perfused. BACK: No CVA tenderness. NEUROLOGICAL: Intact without focal deficits. PSYCHIATRIC: Depressed affect. MUSCULOSKELETAL: Normally developed with good muscle tone. TRIAGE NURSING DOCUMENTATION REVIEWED. Course Administered Medications Sucralfate (Sucralfate 1 Gm/10 Ml Udc) 1 gm PO QID STEFFANIE Stop: 05/18/22 16:59 Last Admin: 04/18/22 16:49 Dose: 1 gm Documented By: RADHA Discontinued Medications Al Hydrox/Mg Hydrox/Simethicone (Gi Cocktail Ed Use) 1 dose PO ONE ONE Stop: 04/18/22 16:35 Last Admin: 04/18/22 16:48 Dose: 1 dose Documented By: RADHA Famotidine (Pepcid 20mg Iv Push) 20 mg in 5 mls @ 2.5 mls/min IV NOW STA Stop: 04/18/22 16:34 Last Admin: 04/18/22 16:49 Dose: 2.5 mls/min Documented By: RADHA Medical Decision Making Differential Diagnosis Differential considered: pancreatitis, hepatitis, acute cholecystitis, AAA, UTI, pyelonephritis, kidney stones, appendicitis, diverticulitis, shingles, bowel obstruction, mesenteric ischemia, intussusception,hernia Differential includes toxic ingestions, self-mutilation, suicidal ideation, suicide attempt, depression. Medical Records Attestation: I reviewed the patient's medical records. Home Medications Current Medication List: was personally reviewed by me Laboratory Data Attestation: I reviewed the patient's lab results. Result diagrams: 04/18/22 16:55 04/18/22 16:55 Lab Results 04/18/22 04/18/22 04/18/22 Range/Units 16:55 16:55 16:55 WBC 9.12 (4.8-10.8) K/ul RBC 4.45 (3.93-5.22) M/uL Hgb 14.2 (12.0-16.0) g/dl Hct 41.2 (34.1-44.9) % MCV 92.6 (80.0-100.0) fL MCH 31.9 (25.0-34.0) pg MCHC 34.5 (32.0-36.0) g/dL RDW Std Deviation 46.0 (36.4-46.3) fL RDW Coeff of Sundeep 13.7 (11.5-14.5) % Plt Count 242 (130-400) K/uL MPV 11.1 (9.4-12.3) fL Immature Gran % (Auto) 0.2 % Neut % (Auto) 71.6 % Lymph % (Auto) 19.1 % [place] % (Auto) 7.8 % Eos % (Auto) 0.8 % Baso % (Auto) 0.5 % Neut # (Auto) 6.53 H (1.4-6.5) K/uL Lymph # (Auto) 1.74 (1.2-3.4) K/uL [place] # (Auto) 0.71 (0.24-0.82) K/uL Eos # (Auto) 0.07 (0-0.50) K/uL Baso # (Auto) 0.05 (0-0.2) K/uL Immature Gran # (Auto) 0.02 (0.00-0.02) K/uL Sodium 141 (136-145) mmol/L Potassium 3.8 (3.5-5.1) mmol/L Chloride 107 (98-107) mmol/L Carbon Dioxide 29 (21-32) mmol/L Anion Gap 5 (3-11) BUN 12 (6-23) mg/dl Creatinine 0.68 (0.6-1.2) mg/dl Est Cr Clr Drug Dosing 66.9 ml/min Est GFR ( Amer) 102.7 ml/min Est GFR (Non-Af Amer) 88.6 ml/min BUN/Creatinine Ratio 17.6 (10-20) Glucose 98 (70-99(Fasting)) mg/dl Calcium 9.0 (8.5-10.1) mg/dl Total Bilirubin 0.6 (0.2-1.0) mg/dl AST 28 (13-39) U/L ALT 16 (7-52) U/L Alkaline Phosphatase 92 (34-104) U/L Troponin I High Sens 4.5 (0-14) pg/ml Total Protein 6.2 (6.0-8.3) gm/dl Albumin 3.9 (3.4-5.0) gm/dl Globulin 2.3 L (2.5-4.0) gm/dl Albumin/Globulin Ratio 1.7 (0.9-2) Lipase 25 (11-82) U/L TSH 12.118 H (0.300-4.500) uIu/ml Free T4 0.85 (0.61-1.60) ng/dl Salicylates (3.0-30) mg/dl Acetaminophen (10-30) ug/ml Ethyl Alcohol mg/dL (<10.0) mg/dl SARS-CoV-2, RNA, NAAT (NEGATIVE) 04/18/22 04/18/22 04/18/22 Range/Units 16:55 16:55 16:55 WBC (4.8-10.8) K/ul RBC (3.93-5.22) M/uL Hgb (12.0-16.0) g/dl Hct (34.1-44.9) % MCV (80.0-100.0) fL MCH (25.0-34.0) pg MCHC (32.0-36.0) g/dL RDW Std Deviation (36.4-46.3) fL RDW Coeff of Sundeep (11.5-14.5) % Plt Count (130-400) K/uL MPV (9.4-12.3) fL Immature Gran % (Auto) % Neut % (Auto) % Lymph % (Auto) % [place] % (Auto) % Eos % (Auto) % Baso % (Auto) % Neut # (Auto) (1.4-6.5) K/uL Lymph # (Auto) (1.2-3.4) K/uL [place] # (Auto) (0.24-0.82) K/uL Eos # (Auto) (0-0.50) K/uL Baso # (Auto) (0-0.2) K/uL Immature Gran # (Auto) (0.00-0.02) K/uL Sodium (136-145) mmol/L Potassium (3.5-5.1) mmol/L Chloride (98-107) mmol/L Carbon Dioxide (21-32) mmol/L Anion Gap (3-11) BUN (6-23) mg/dl Creatinine (0.6-1.2) mg/dl Est Cr Clr Drug Dosing ml/min Est GFR ( Amer) ml/min Est GFR (Non-Af Amer) ml/min BUN/Creatinine Ratio (10-20) Glucose (70-99(Fasting)) mg/dl Calcium (8.5-10.1) mg/dl Total Bilirubin (0.2-1.0) mg/dl AST (13-39) U/L ALT (7-52) U/L Alkaline Phosphatase (34-104) U/L Troponin I High Sens Cancelled (0-14) pg/ml Total Protein (6.0-8.3) gm/dl Albumin (3.4-5.0) gm/dl Globulin (2.5-4.0) gm/dl Albumin/Globulin Ratio (0.9-2) Lipase Cancelled (11-82) U/L TSH (0.300-4.500) uIu/ml Free T4 (0.61-1.60) ng/dl Salicylates < 3.0 L (3.0-30) mg/dl Acetaminophen 5 L (10-30) ug/ml Ethyl Alcohol mg/dL < 10.0 (<10.0) mg/dl SARS-CoV-2, RNA, NAAT (NEGATIVE) 04/18/22 Range/Units 16:56 WBC (4.8-10.8) K/ul RBC (3.93-5.22) M/uL Hgb (12.0-16.0) g/dl Hct (34.1-44.9) % MCV (80.0-100.0) fL MCH (25.0-34.0) pg MCHC (32.0-36.0) g/dL RDW Std Deviation (36.4-46.3) fL RDW Coeff of Sundeep (11.5-14.5) % Plt Count (130-400) K/uL MPV (9.4-12.3) fL Immature Gran % (Auto) % Neut % (Auto) % Lymph % (Auto) % [place] % (Auto) % Eos % (Auto) % Baso % (Auto) % Neut # (Auto) (1.4-6.5) K/uL Lymph # (Auto) (1.2-3.4) K/uL [place] # (Auto) (0.24-0.82) K/uL Eos # (Auto) (0-0.50) K/uL Baso # (Auto) (0-0.2) K/uL Immature Gran # (Auto) (0.00-0.02) K/uL Sodium (136-145) mmol/L Potassium (3.5-5.1) mmol/L Chloride (98-107) mmol/L Carbon Dioxide (21-32) mmol/L Anion Gap (3-11) BUN (6-23) mg/dl Creatinine (0.6-1.2) mg/dl Est Cr Clr Drug Dosing ml/min Est GFR ( Amer) ml/min Est GFR (Non-Af Amer) ml/min BUN/Creatinine Ratio (10-20) Glucose (70-99(Fasting)) mg/dl Calcium (8.5-10.1) mg/dl Total Bilirubin (0.2-1.0) mg/dl AST (13-39) U/L ALT (7-52) U/L Alkaline Phosphatase (34-104) U/L Troponin I High Sens (0-14) pg/ml Total Protein (6.0-8.3) gm/dl Albumin (3.4-5.0) gm/dl Globulin (2.5-4.0) gm/dl Albumin/Globulin Ratio (0.9-2) Lipase (11-82) U/L TSH (0.300-4.500) uIu/ml Free T4 (0.61-1.60) ng/dl Salicylates (3.0-30) mg/dl Acetaminophen (10-30) ug/ml Ethyl Alcohol mg/dL (<10.0) mg/dl SARS-CoV-2, RNA, NAAT NEGATIVE (NEGATIVE) ECG Data Attestation: I personally reviewed and interpreted this ECG as follows: MDM Narrative 71-year-old female presents with police for psychiatric evaluation after making statements about killing herself. She did admit to me about slicing her wrist. She also admitted that to the triage PA. The patient is having epigastric abdominal pain for the past week and a half as well as chronic diarrhea issues. She has had several evaluations here for the epigastric abdominal pain. She has had CAT scans, x-rays as well as blood work and nothing specific was found. She states that Zofran does not seem to help. She has not seen her PCP or GI specialist. The patient's EKG shows a sinus bradycardia at a rate of 52 with so me T wave inversions anterior laterally. No acute ST elevation. CBC and chemistry panel was normal. Troponin was negative. TSH was elevated but free T4 was normal. Alcohol, Tylenol and aspirin were unremarkable. COVID test was negative. The patient did have several episodes of diarrhea while here. She was treated with IV Pepcid as well as p.o. GI cocktail and p.o. sucralfate. Because of the ongoing epigastric pain and diarrhea that seems to be precipitating a mental health crisis, the patient will be seen by the hospitalist for further inpatient evaluation and care. Impression & Plan Abdominal pain, acute, epigastric, Diarrhea, Suicidal ideation Discharge Plan Visit Data Chief Complaint: Mental Health Evaluation Stated Complaint: anxiety, stomach pain, diarrhea ED Provider: Chapincito Saab Discharge Problem: Abdominal pain, acute, epigastric, Diarrhea, Suicidal ideation Patient Disposition: Being Evaluated by Hospitalist Forms Stand Alone Forms: My [facility], Suicide Prevention Resources Prescriptions Prescriptions: No Action triamcinolone acetonide 0.1 % ointment 1 applic topical BID Qty: 30 3RF atorvastatin 20 mg Tablet 20 mg PO HS metronidazole 500 mg tablet 500 mg PO AMHS Rx Instructions: take for 7 days ordered 04/12/22 ciprofloxacin HCl 500 mg tablet 500 mg PO AMHS Rx Instructions: take for 10 days ordered 04/12/22 ondansetron HCl 4 mg tablet 4 mg PO Q8 PRN (Reason: nausea and vomiting) metoclopramide HCl 5 mg tablet 5 mg PO UD gabapentin 600 mg tablet 600 mg PO BID sertraline 100 mg tablet 100 mg PO QAM hydrocodone-acetaminophen 5-325 mg tablet 1 - 2 tab PO TID PRN (Reason: Pain, Severe) meloxicam 15 mg tablet 15 mg PO QAM Rx Instructions: Take with food lorazepam [Ativan] 1 mg tablet 1 mg PO Q12H PRN (Reason: anxiety) Qty: 10 0RF tramadol 50 mg tablet 50 mg PO Q8H PRN (Reason: Pain) vitamin B complex Tablet 1 tab PO DAILY cholecalciferol (vitamin D3) [Vitamin D3] 25 mcg (1,000 unit) Tablet 75 mcg PO DAILY melatonin 3 mg Tablet 3 mg PO HS PRN (Reason: sleep) Qty: 1 0RF atenolol 25 mg Tablet 25 mg PO BIDM Qty: 60 0RF levothyroxine 88 mcg tablet 88 mcg PO QAM promethazine 25 mg tablet 25 mg PO Q6H PRN (Reason: nausea and vomiting) Qty: 12 0RF mirtazapine 30 mg tablet 30 mg PO HS biotin 1 mg Tablet 1 mg PO DAILY sulfacetamide sodium 10 % drops 1 drp OPB BID PRN (Reason: BURNY EYES) Referrals Referrals: Desirae Palacio MD [Primary Care Provider] -
[2022-04-18] MEDS ORDERED: GI COCKTAIL ED USE PO ONE (16:34)
[2022-04-18] MEDS: SUCRALFATE 1 GM/10 ML UDC PO SCH ×2 (16:49→22:04)
[2022-04-18 17:05] LABS: Basophils # (auto) 0.05 K/uL (0-0.2); Basophils % (auto) 0.5 %; Eosinophils # (auto) 0.07 K/uL (0-0.50); Eosinophils % (auto) 0.8 %; Hematocrit (blood only) 41.2 % (34.1-44.9); Hemoglobin 14.2 g/dl (12.0-16.0); Immature Granulocytes # (auto) 0.02 K/uL (0.00-0.02); Immature Granulocytes % (auto) 0.2 %; Lymphocytes # (auto) 1.74 K/uL (1.2-3.4); Lymphocytes % (auto) 19.1 %; Mean Corpuscular Hemoglobin 31.9 pg (25.0-34.0); Mean Corpuscular Hgb Conc 34.5 g/dL (32.0-36.0); Mean Corpuscular Volume 92.6 fL (80.0-100.0); Mean Platelet Volume 11.1 fL (9.4-12.3); Monocytes # (auto) 0.71 K/uL (0.24-0.82); Monocytes % (auto) 7.8 %; Neutrophils # (auto) 6.53 K/uL (1.4-6.5); Neutrophils % (auto) 71.6 %; Platelet Count 242 K/uL (130-400); RDW Coefficient of Variation 13.7 % (11.5-14.5); Red Blood Count 4.45 M/uL (3.93-5.22); White Blood Count 9.12 K/ul (4.8-10.8)
[2022-04-18 17:26] LABS: Acetaminophen 5 ug/ml (10-30); Salicylate < 3.0 mg/dl (3.0-30)
[2022-04-18 17:27] LABS: Albumin Globulin Ratio 1.7 (0.9-2); Albumin Level 3.9 gm/dl (3.4-5.0); BUN Creatinine Ratio 17.6 (10-20); Bilirubin,Total 0.6 mg/dl (0.2-1.0); Creatinine Clr Calc Pharmacy 66.9 ml/min; Est GFR (African American) 102.7 ml/min; Est GFR (Non-African American) 88.6 ml/min; Globulin 2.3 gm/dl (2.5-4.0); Potassium 3.8 mmol/L (3.5-5.1); Total Protein 6.2 gm/dl (6.0-8.3)
[2022-04-18 17:32] LABS: Troponin I High Sensitivity 4.5 pg/ml (0-14)
[2022-04-18 17:40] LABS: Thyroid Stimulating Hormone 12.118 uIu/ml (0.300-4.500)
[2022-04-18 18:13] LABS: T4 Free Thyroxine 0.85 ng/dl (0.61-1.60)
[2022-04-18] MEDS ORDERED: ACETAMINOPHEN 500 MG TAB PO STA (19:18)
[2022-04-18 19:54] LABS: Appearance Urine Clear (Clear); Bacteria Urine Automated Negative (Negative); Bilirubin Urine Negative (Negative); Blood Urine Negative (Negative); Color Urine Yellow; Epithelial Cell Urine Auto >30 /lpf (0-5); Glucose Urine UA Negative (Negative); Ketones Urine 2+ (Negative); Leukocyte Esterase Urine 2+ (Negative); Nitrite Urine Negative (Negative); Protein Urine Negative (Negative); Specific Gravity Urine 1.028 (1.000-1.030); Urobilinogen Urine Negative (Negative)
[2022-04-18 20:10] LABS: RBC Urine Automated 0-4 /hpf (0-4)
--- NOTE | 2022-04-18 20:10 | History & Physical Report ---
Date of Service April 18, 2022 Assessment & Plan (1) Abdominal pain: (2) Nausea: (3) Diarrhea: (4) Suicidal ideation: (5) Anxiety: (6) Post traumatic stress disorder (PTSD): (7) Major depressive disorder, recurrent episode with anxious distress: Plan This is a 71-year-old female with PMH of IBS, depression, anxiety, suicidal ideation, PTSD, scoliosis and other medical problems listed below who presents for continued abdominal pain and diarrhea. Has been seen in the ED 5 times in the past month for abdominal pain and nausea in the setting of anxiety. CT abdomen pelvis on 04/08 with no bowel wall thickening or obstruction, normal appendix, colonic diverticulosis without evidence for acute diverticulitis. KUB from 04/16 with nonobstructive bowel gas pattern. Was last seen by GI in August 2019 for chronic diarrhea-Per note, stool studies for infections, CT, EGD, colonoscopy, celiac serologies all unrevealing at that time. Please see Dr. North's addendum for assessment and plan. History of Present Illness Chief Complaint: Abdominal pain, suicidal ideation Primary Care Provider: Desirae Palacio MD This is a 71-year-old female with PMH of IBS, depression, anxiety, suicidal ideation, PTSD, scoliosis and other medical problems listed below who presents for continued abdominal pain and diarrhea. Describes pain in epigastrium as aching and worse with movement. Also continues to have watery diarrhea with some episodes of fecal incontinence. Also notable suicidal ideation that she could "end it all" during interview by ED physician. Patient was admitted to psychiatric service this past August due to suicidal ideation and worsening depression in the setting of multiple life stressors, including transitioning her elderly mother into a shelter facility. Had medications adjusted at that time. Has been seen in the ED 5 times in the past month for abdominal pain and nausea in the setting of anxiety. CT abdomen pelvis on 04/08 with no bowel wall thickening or obstruction, normal appendix, colonic diverticulosis without evidence for acute diverticulitis. KUB from 04/16 with nonobstructive bowel gas pattern. Was last seen by GI in August 2019 for chronic diarrhea-Per note, stool studies for infections, CT, EGD, colonoscopy, celiac serologies all unrevealing at that time. Currently comfortable at rest without epigastric pain. Occasional nausea. Admits to feeling very anxious. Feels depressed but not as much as sometimes. No fever, chills, headache, CP, SOB, vomiting, dysuria or constipation. When asked if suicidal she answered, "not right now." Allergies Allergy/AdvReac Type Severity Reaction Status Date / Time No Known Allergies Allergy Verified 04/15/22 18:40 Home Medications Medication Instructions Recorded Confirmed Type atorvastatin 20 mg tablet 20 mg PO HS 03/10/19 04/18/22 History atenolol 25 mg tablet 25 mg PO BIDM #60 tabs 09/05/21 04/18/22 Rx levothyroxine 88 mcg tablet 88 mcg PO QAM 11/07/21 04/18/22 History gabapentin 600 mg tablet 600 mg PO BID 04/15/22 04/18/22 History meloxicam 15 mg tablet 15 mg PO QAM 04/15/22 04/18/22 History ondansetron HCl 4 mg tablet 4 mg PO Q8 PRN nausea and vomiting 04/15/22 04/18/22 History sertraline 100 mg tablet 100 mg PO QAM 04/15/22 04/18/22 History hydrocodone 5 mg-acetaminophen 325 1 tab PO DAILY 04/18/22 04/18/22 History mg tablet Past Med/Surg History Medical History Chronic low back pain Depression Generalized anxiety disorder GERD (gastroesophageal reflux disease) Hypercholesteremia Hypertension Major depressive disorder, recurrent episode with anxious distress Osteoporosis Post traumatic stress disorder (PTSD) Scoliosis Suicidal ideation Surgical History S/P hysterectomy Family History Other Cancer Heart disease Social History Smoking Status: Never smoker Second Hand Exposure: No; Hx Alcohol Use: No Hx Substance Use: No Preferred Language: [place] Communication Ability: Effective Global Implementation Manager Required: No Beliefs That Will Affect Care: None Current Living Situation: Alone Feels Safe at Home: Yes Assistive Devices: Glasses Review of Systems Review of Systems: At least ten systems reviewed and negative except as noted in the HPI. Physical Exam Physical Exam: General Appearance: WD/WN, vitals as above, NAD, sitting up in bed, conversing easily, anxious Head: normocephalic, atraumatic Eyes: normal inspection, PERRL, conjunctivae normal, anicteric sclerae ENT: external ear and nose normal, oropharynx normal Neck: normal visual inspection, trachea midline, no thyromegaly Respiratory: normal respiratory effort, lungs clear to auscultation, no wheeze, rales, rhonchi. No accessory muscle use Cardiovascular: regular rate, rhythm, no murmur, normal peripheral pulses, no BLE edema. Vessels: no JVD Chest: normal inspection of chest Abdomen/GI: normal bowel sounds, soft, TTP of epigastrium, no guarding, no hepatosplenomegaly Extremities/Musculoskeletal: no cyanosis or clubbing, extremities motor s trength 5/5 Neurologic: PERRL, EOMI, accommodation nl, no face palsy, no dysarthria, CN's II-XI intact bilaterally and moves all extremities Psychiatric: A+Ox3, + anxious Skin: no rashes, normal color, warm/dry Results & Data Results & Data ([facility]) Vital Signs (Past 12 Hours) Vital Signs Temp Pulse Pulse Resp BP BP Pulse Ox 04/18/22 18:43 58 L 20 171/87 H 98 04/18/22 15:44 36.8 C 96 H 20 174/60 H 97 O2 Del Method 04/18/22 18:43 Room Air 04/18/22 15:44 Room Air Laboratory Results Short CBC 04/18/22 Range/Units 16:55 WBC 9.12 (4.8-10.8) K/ul Hgb 14.2 (12.0-16.0) g/dl Hct 41.2 (34.1-44.9) % Plt Count 242 (130-400) K/uL BMP 04/18/22 16:55 Sodium 141 Potassium 3.8 Chloride 107 Carbon Dioxide 29 BUN 12 Creatinine 0.68 Glucose 98 Calcium 9.0 Liver Function 04/18/22 Range/Units 16:55 Total Bilirubin 0.6 (0.2-1.0) mg/dl AST 28 (13-39) U/L ALT 16 (7-52) U/L Alkaline Phosphatase 92 (34-104) U/L Albumin 3.9 (3.4-5.0) gm/dl Urine 09/27/22 Range/Units 19:30 Urine Color Yellow Urine Appearance Clear (Clear) Urine pH 6.0 (4.5-7.5) Ur Specific [place] 1.028 (1.000-1.030) Urine Protein Negative (Negative) Urine Glucose (UA) Negative (Negative) Supervising Physician Co-Signing Physician Notes IM ATTENDING : Patient seen and examined. History obtained from patient and records. Preceding documentation by Ms. Dot Mcgowan PA-C reviewed. FINAL ASSESSMENT AND PLAN as follows : Episodic chest pain, SOB Likely secondary to anxiety Abdominal pain, diarrhea Likely IBS precipitated by anxiety Hypertension, elevated secondary to anxiety/stress Anxiety/mood disorder, suboptimal state Patient with fleeting suicidal ideations. Hypothyroidism, TSH elevated History MGUS, last [facility] corporate consultant follow-up was in 2019. OBS Medical telemetry given elevated BP and chest pain complaints Anxiolytic as needed Analgesia Follow stool work-up ordered by ER provider GI consult Re: Abdominal pain diarrhea of months duration Psych consult re: suicidality Suicide precautions until patient seen by psych service. DVT prophylaxis. Lovenox subcu Full code Text document was generated using [employer] voice recognition software. It may contain grammatical or spelling errors. Kindly contact undersigned for clarification of any documentation item in question. (1) Abdominal pain Abdominal location: generalized Qualified Code(s): R10.84 - Generalized abdominal pain
[2022-04-18 20:27] LABS: Amphetamines+Metham, Urine Neg (Neg); Barbiturates, Urine Neg (Neg); Benzodiazepine, Urine Neg (Neg); Cocaine, Urine Neg (Neg); MDMA (Ecstacy), Urine Neg (Neg); Methadone, Urine Neg (Neg); Opiate, Urine Neg (Neg); Phencyclidine, Urine Neg (Neg)
[2022-04-18] MEDS ORDERED: LACTATED RINGER'S 1,000 ML IV ONE (20:41)
[2022-04-18 21:21] LABS: D Dimer 400 ug/L FEU (0-500); Partial Thromboplastin Ratio 0.9; Partial Thromboplastin Time 24.8 Seconds (21.0-31.0)
[2022-04-19] MEDS: LORazepam 0.5 MG TAB PO PRN ×2 (00:27→22:39)
[2022-04-19] MEDS: ATORVASTATIN 20 MG TAB PO SCH ×2 (00:27→20:35)
[2022-04-19] MEDS: GABAPENTIN 600 MG TAB PO SCH ×3 (00:27→20:34)
[2022-04-19] MEDS: traMADol HCL 50 MG TABLET PO PRN ×3 (00:28→20:35)
[2022-04-19] MEDS: PROMETHAZINE HCL 12.5 MG in SODIUM CHLORIDE 0.9% 50 ML IV PRN (06:27)
[2022-04-19] MEDS ORDERED: LEVOTHYROXINE SODIUM 88 MCG TABLET PO SCH (06:30)
[2022-04-19 06:35] LABS: Basophils # (auto) 0.07 K/uL (0-0.2); Basophils % (auto) 0.8 %; Eosinophils # (auto) 0.12 K/uL (0-0.50); Eosinophils % (auto) 1.3 %; Hematocrit (blood only) 37.2 % (34.1-44.9); Hemoglobin 13.1 g/dl (12.0-16.0); Immature Granulocytes # (auto) 0.03 K/uL (0.00-0.02); Immature Granulocytes % (auto) 0.3 %; Lymphocytes # (auto) 2.69 K/uL (1.2-3.4); Lymphocytes % (auto) 30.2 %; Mean Corpuscular Hemoglobin 31.6 pg (25.0-34.0); Mean Corpuscular Hgb Conc 35.2 g/dL (32.0-36.0); Mean Corpuscular Volume 89.6 fL (80.0-100.0); Mean Platelet Volume 11.3 fL (9.4-12.3); Monocytes # (auto) 0.68 K/uL (0.24-0.82); Monocytes % (auto) 7.6 %; Neutrophils # (auto) 5.31 K/uL (1.4-6.5); Neutrophils % (auto) 59.8 %; Platelet Count 225 K/uL (130-400); RDW Coefficient of Variation 13.3 % (11.5-14.5); RDW Standard Deviation 43.8 fL (36.4-46.3); Red Blood Count 4.15 M/uL (3.93-5.22)
[2022-04-19] MEDS ORDERED: ATENOLOL 25 MG TABLET PO SCH (08:00)
--- NOTE | 2022-04-19 08:12 | Communication Note ---
Date of Service: April 19, 2022 Late entry Patient with progressive bradycardia during sleep around 50 a.m. as per RN. Lowest heart rate of 30s. Asymptomatic bradycardia during sleep Decrease maintenance beta-camron dose.
[2022-04-19] MEDS: ATENOLOL 25 MG TABLET PO SCH (09:12)
[2022-04-19] MEDS: ENOXAPARIN INJ 40 MG/0.4 ML SYR SQ SCH (09:12)
[2022-04-19] MEDS: hydrOXYzine HCl 10 MG TAB PO PRN (10:18)
--- NOTE | 2022-04-19 12:47 | Psychiatric Consultation ---
Date of Consultation April 19, 2022 Impression / Recommendations Impression 71 yo female with a history of recurrent abdominal complaints with ruminative depression/anxiety. (1) Major depressive disorder, recurrent episode with anxious distress: (2) Abdominal pain, acute, epigastric: Plan Zoloft not currently ordered here, perhaps due to active GI and/or procedures planned. I don't feel strongly either way as doesn't seem like has made much a difference and SSRIs can have issues with GI tolerability given hx of recurrent depression with several failed antidepressant trials but would suggest a trial of a low dose atypical Abilify 2.5 mg to start when her diet is able to be advanced, will discuss with patient on repeat exam no longer screening for acute SI, 1 on 1 can be discontinued at discretion of hospitalist service Psych History Identifying Data 71 yo female lives alone, history of depression/anxiety, chronic back apin, HTN, GERD with hx of 201 to 3S on 09/01/21 for SI with a plan to OD. Chief Complaint "I said that stuff about cutting but I didn't have any intent" History of Present Illness Feels that her GI issues are at least in some part stress related. It is unclear if she followed up with services/[place] following her hospital stay and is not currently taking Remeron. She has a history of changing medications on her own. She does get pretty hopeless and helpless when she is feeling down and has a history of poor sleep, appetite and anhedonia associated with her ruminations. Was admitted after 5 visits to the emergency department. She does have a Box A petitioning statement by police as in the context of severe pain made a passive suicidal statement and looked at her wrists. She has since consistently denied SI to the liaison and is mainly interested in med options for outpatient. Past Psychiatric History Past Medication Trials: Current Psychiatric Diagnosis: Depression Outpatient Services: had been seeing a provider via telemedicine through [facility] [place] but stopped in June 2021; last year did outpatient therapy through [facility] Previous Psych Admissions: none Do You Have Access To A Gun?: No Past Medication Trials: atenolol 20 years ago for anxiety, sertraline for 14 years stopped 2 years ago, took gabapentin for many years, most recently on Cymbalta, lyrica through June 2021, her psychiatrist had recently prescribed mirtazapine but she doesn't recall if she ever tried taking this Allergies Allergy/AdvReac Type Severity Reaction Status Date / Time No Known Allergies Allergy Verified 04/15/22 18:40 Home Medications Medication Instructions Recorded Confirmed Type atorvastatin 20 mg tablet 20 mg PO HS 03/10/19 04/18/22 History atenolol 25 mg tablet 25 mg PO BIDM #60 tabs 09/05/21 04/18/22 Rx levothyroxine 88 mcg tablet 88 mcg PO QAM 11/07/21 04/18/22 History gabapentin 600 mg tablet 600 mg PO BID 04/15/22 04/18/22 History meloxicam 15 mg tablet 15 mg PO QAM 04/15/22 04/18/22 History ondansetron HCl 4 mg tablet 4 mg PO Q8 PRN nausea and vomiting 04/15/22 04/18/22 History sertraline 100 mg tablet 100 mg PO QAM 04/15/22 04/18/22 History hydrocodone 5 mg-acetaminophen 325 1 tab PO DAILY 04/18/22 04/18/22 History mg tablet Family History denied Personal History Beliefs That Will Affect Care: None Additional Comments: retired, , 2 sons Patient History Medical History Chronic low back pain Depression Generalized anxiety disorder GERD (gastroesophageal reflux disease) Hypercholesteremia Hypertension Major depressive disorder, recurrent episode with anxious distress Osteoporosis Post traumatic stress disorder (PTSD) Scoliosis Suicidal ideation Surgical History S/P hysterectomy Family History Other Cancer Heart disease Social History Smoking Status: Never smoker Second Hand Exposure: No; Hx Alcohol Use: No Hx Substance Use: No Preferred Language: Tajik Communication Ability: Effective 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 Beliefs That Will Affect Care: None Current Living Situation: Alone Feels Safe at Home: Yes Assistive Devices: Glasses Physical Exam Vital Signs (Past 24 Hours): Last Vital Signs Temp 36.7 C 04/19/22 11:27 Pulse 60 04/19/22 11:27 Resp 18 04/19/22 11:27 BP 97/58 L 04/19/22 11:27 Pulse Ox 95 04/19/22 11:27 O2 Del Method 04/19/22 11:27 Exam Statement: patient is currently sleeping soundly Review of Systems All systems reviewed & are unremarkable except as noted in HPI & below Results & Data (PSY) Laboratory Results 04/19/22 04/18/22 04/18/22 Range/Units 05:53 20:57 19:30 WBC 8.90 (4.8-10.8) K/ul RBC 4.15 (3.93-5.22) M/uL Hgb 13.1 (12.0-16.0) g/dl Hct 37.2 (34.1-44.9) % MCV 89.6 (80.0-100.0) fL MCH 31.6 (25.0-34.0) pg MCHC 35.2 (32.0-36.0) g/dL RDW Std Deviation 43.8 (36.4-46.3) fL RDW Coeff of Sundeep 13.3 (11.5-14.5) % Plt Count 225 (130-400) K/uL MPV 11.3 (9.4-12.3) fL Immature Gran % (Auto) 0.3 % Neut % (Auto) 59.8 % Lymph % (Auto) 30.2 % Hoke % (Auto) 7.6 % Eos % (Auto) 1.3 % Baso % (Auto) 0.8 % Neut # (Auto) 5.31 (1.4-6.5) K/uL Lymph # (Auto) 2.69 (1.2-3.4) K/uL Hoke # (Auto) 0.68 (0.24-0.82) K/uL Eos # (Auto) 0.12 (0-0.50) K/uL Baso # (Auto) 0.07 (0-0.2) K/uL Immature Gran # (Auto) 0.03 H (0.00-0.02) K/uL APTT 24.8 (21.0-31.0) Seconds PTT Ratio 0.9 D-Dimer 400 (0-500) ug/L FEU Sodium (136-145) mmol/L Potassium (3.5-5.1) mmol/L Chloride (98-107) mmol/L Carbon Dioxide (21-32) mmol/L Anion Gap (3-11) BUN (6-23) mg/dl Creatinine (0.6-1.2) mg/dl Est Cr Clr Drug Dosing ml/min Est GFR ( Amer) ml/min Est GFR (Non-Af Amer) ml/min BUN/Creatinine Ratio (10-20) Glucose (70-99(Fasting)) mg/dl Calcium (8.5-10.1) mg/dl Magnesium (1.7-2.4) mg/dl Total Bilirubin (0.2-1.0) mg/dl AST (13-39) U/L ALT (7-52) U/L Alkaline Phosphatase (34-104) U/L Troponin I High Sens (0-14) pg/ml Total Protein (6.0-8.3) gm/dl Albumin (3.4-5.0) gm/dl Globulin (2.5-4.0) gm/dl Albumin/Globulin Ratio (0.9-2) Lipase (11-82) U/L TSH (0.300-4.500) uIu/ml Free T4 (0.61-1.60) ng/dl Urine Color Urine Appearance (Clear) Urine pH (4.5-7.5) Ur Specific [place] (1.000-1.030) Urine Protein (Negative) Urine Glucose (UA) (Negative) Urine Ketones (Negative) Urine Blood (Negative) Urine Nitrite (Negative) Urine Bilirubin (Negative) Urine Urobilinogen (Negative) Ur Leukocyte Esterase (Negative) Urine WBC (Auto) (0-5) /hpf Urine RBC (Auto) (0-4) /hpf U Hyaline Cast (Auto) (0-5) /lpf U Epithel Cells (Auto) (0-5) /lpf Urine Bacteria (Auto) (Negative) Salicylates (3.0-30) mg/dl Urine Opiates Screen Neg (Neg) Ur Methadone, Qual Neg (Neg) Acetaminophen (10-30) ug/ml Urine Barbiturates Neg (Neg) Ur Phencyclidine (PCP) Neg (Neg) U Amphetamin/Meth Scrn Neg (Neg) MDMA (Ecstasy) Screen Neg (Neg) U Benzodiazepines Scrn Neg (Neg) Ur Cocaine Metabolite Neg (Neg) U Marijuana (THC) Screen Neg (Neg) Ethyl Alcohol mg/dL (<10.0) mg/dl SARS-CoV-2, RNA, NAAT (NEGATIVE) 04/18/22 04/18/22 04/18/22 Range/Units 19:30 16:56 16:55 WBC (4.8-10.8) K/ul RBC (3.93-5.22) M/uL Hgb (12.0-16.0) g/dl Hct (34.1-44.9) % MCV (80.0-100.0) fL MCH (25.0-34.0) pg MCHC (32.0-36.0) g/dL RDW Std Deviation (36.4-46.3) fL RDW Coeff of Sundeep (11.5-14.5) % Plt Count (130-400) K/uL MPV (9.4-12.3) fL Immature Gran % (Auto) % Neut % (Auto) % Lymph % (Auto) % [place] % (Auto) % Eos % (Auto) % Baso % (Auto) % Neut # (Auto) (1.4-6.5) K/uL Lymph # (Auto) (1.2-3.4) K/uL [place] # (Auto) (0.24-0.82) K/uL Eos # (Auto) (0-0.50) K/uL Baso # (Auto) (0-0.2) K/uL Immature Gran # (Auto) (0.00-0.02) K/uL APTT (21.0-31.0) Seconds PTT Ratio D-Dimer (0-500) ug/L FEU Sodium (136-145) mmol/L Potassium (3.5-5.1) mmol/L Chloride (98-107) mmol/L Carbon Dioxide (21-32) mmol/L Anion Gap (3-11) BUN (6-23) mg/dl Creatinine (0.6-1.2) mg/dl Est Cr Clr Drug Dosing ml/min Est GFR ( Amer) ml/min Est GFR (Non-Af Amer) ml/min BUN/Creatinine Ratio (10-20) Glucose (70-99(Fasting)) mg/dl Calcium (8.5-10.1) mg/dl Magnesium 1.9 (1.7-2.4) mg/dl Total Bilirubin (0.2-1.0) mg/dl AST (13-39) U/L ALT (7-52) U/L Alkaline Phosphatase (34-104) U/L Troponin I High Sens (0-14) pg/ml Total Protein (6.0-8.3) gm/dl Albumin (3.4-5.0) gm/dl Globulin (2.5-4.0) gm/dl Albumin/Globulin Ratio (0.9-2) Lipase (11-82) U/L TSH (0.300-4.500) uIu/ml Free T4 (0.61-1.60) ng/dl Urine Color Yellow Urine Appearance Clear (Clear) Urine pH 6.0 (4.5-7.5) Ur Specific [place] 1.028 (1.000-1.030) Urine Protein Negative (Negative) Urine Glucose (UA) Negative (Negative) Urine Ketones 2+ H (Negative) Urine Blood Negative (Negative) Urine Nitrite Negative (Negative) Urine Bilirubin Negative (Negative) Urine Urobilinogen Negative (Negative) Ur Leukocyte Esterase 2+ H (Negative) Urine WBC (Auto) 10-30 H (0-5) /hpf Urine RBC (Auto) 0-4 (0-4) /hpf U Hyaline Cast (Auto) 1-5 (0-5) /lpf U Epithel Cells (Auto) >30 H (0-5) /lpf Urine Bacteria (Auto) Negative (Negative) Salicylates (3.0-30) mg/dl Urine Opiates Screen (Neg) Ur Methadone, Qual (Neg) Acetaminophen (10-30) ug/ml Urine Barbiturates (Neg) Ur Phencyclidine (PCP) (Neg) U Amphetamin/Meth Scrn (Neg) MDMA (Ecstasy) Screen (Neg) U Benzodiazepines Scrn (Neg) Ur Cocaine Metabolite (Neg) U Marijuana (THC) Screen (Neg) Ethyl Alcohol mg/dL (<10.0) mg/dl SARS-CoV-2, RNA, NAAT NEGATIVE (NEGATIVE) 04/18/22 04/18/22 04/18/22 Range/Units 16:55 16:55 16:55 WBC (4.8-10.8) K/ul RBC (3.93-5.22) M/uL Hgb (12.0-16.0) g/dl Hct (34.1-44.9) % MCV (80.0-100.0) fL MCH (25.0-34.0) pg MCHC (32.0-36.0) g/dL RDW Std Deviation (36.4-46.3) fL RDW Coeff of Sundeep (11.5-14.5) % Plt Count (130-400) K/uL MPV (9.4-12.3) fL Immature Gran % (Auto) % Neut % (Auto) % Lymph % (Auto) % [place] % (Auto) % Eos % (Auto) % Baso % (Auto) % Neut # (Auto) (1.4-6.5) K/uL Lymph # (Auto) (1.2-3.4) K/uL [place] # (Auto) (0.24-0.82) K/uL Eos # (Auto) (0-0.50) K/uL Baso # (Auto) (0-0.2) K/uL Immature Gran # (Auto) (0.00-0.02) K/uL APTT (21.0-31.0) Seconds PTT Ratio D-Dimer (0-500) ug/L FEU Sodium (136-145) mmol/L Potassium (3.5-5.1) mmol/L Chloride (98-107) mmol/L Carbon Dioxide (21-32) mmol/L Anion Gap (3-11) BUN (6-23) mg/dl Creatinine (0.6-1.2) mg/dl Est Cr Clr Drug Dosing ml/min Est GFR ( Amer) ml/min Est GFR (Non-Af Amer) ml/min BUN/Creatinine Ratio (10-20) Glucose (70-99(Fasting)) mg/dl Calcium (8.5-10.1) mg/dl Magnesium (1.7-2.4) mg/dl Total Bilirubin (0.2-1.0) mg/dl AST (13-39) U/L ALT (7-52) U/L Alkaline Phosphatase (34-104) U/L Troponin I High Sens Cancelled (0-14) pg/ml Total Protein (6.0-8.3) gm/dl Albumin (3.4-5.0) gm/dl Globulin (2.5-4.0) gm/dl Albumin/Globulin Ratio (0.9-2) Lipase Cancelled (11-82) U/L TSH (0.300-4.500) uIu/ml Free T4 (0.61-1.60) ng/dl Urine Color Urine Appearance (Clear) Urine pH (4.5-7.5) Ur Specific [place] (1.000-1.030) Urine Protein (Negative) Urine Glucose (UA) (Negative) Urine Ketones (Negative) Urine Blood (Negative) Urine Nitrite (Negative) Urine Bilirubin (Negative) Urine Urobilinogen (Negative) Ur Leukocyte Esterase (Negative) Urine WBC (Auto) (0-5) /hpf Urine RBC (Auto) (0-4) /hpf U Hyaline Cast (Auto) (0-5) /lpf U Epithel Cells (Auto) (0-5) /lpf Urine Bacteria (Auto) (Negative) Salicylates < 3.0 L (3.0-30) mg/dl Urine Opiates Screen (Neg) Ur Methadone, Qual (Neg) Acetaminophen 5 L (10-30) ug/ml Urine Barbiturates (Neg) Ur Phencyclidine (PCP) (Neg) U Amphetamin/Meth Scrn (Neg) MDMA (Ecstasy) Screen (Neg) U Benzodiazepines Scrn (Neg) Ur Cocaine Metabolite (Neg) U Marijuana (THC) Screen (Neg) Ethyl Alcohol mg/dL < 10.0 (<10.0) mg/dl SARS-CoV-2, RNA, NAAT (NEGATIVE) 04/18/22 04/18/22 04/18/22 Range/Units 16:55 16:55 16:55 WBC 9.12 (4.8-10.8) K/ul RBC 4.45 (3.93-5.22) M/uL Hgb 14.2 (12.0-16.0) g/dl Hct 41.2 (34.1-44.9) % MCV 92.6 (80.0-100.0) fL MCH 31.9 (25.0-34.0) pg MCHC 34.5 (32.0-36.0) g/dL RDW Std Deviation 46.0 (36.4-46.3) fL RDW Coeff of Sundeep 13.7 (11.5-14.5) % Plt Count 242 (130-400) K/uL MPV 11.1 (9.4-12.3) fL Immature Gran % (Auto) 0.2 % Neut % (Auto) 71.6 % Lymph % (Auto) 19.1 % [place] % (Auto) 7.8 % Eos % (Auto) 0.8 % Baso % (Auto) 0.5 % Neut # (Auto) 6.53 H (1.4-6.5) K/uL Lymph # (Auto) 1.74 (1.2-3.4) K/uL [place] # (Auto) 0.71 (0.24-0.82) K/uL Eos # (Auto) 0.07 (0-0.50) K/uL Baso # (Auto) 0.05 (0-0.2) K/uL Immature Gran # (Auto) 0.02 (0.00-0.02) K/uL APTT (21.0-31.0) Seconds PTT Ratio D-Dimer (0-500) ug/L FEU Sodium 141 (136-145) mmol/L Potassium 3.8 (3.5-5.1) mmol/L Chloride 107 (98-107) mmol/L Carbon Dioxide 29 (21-32) mmol/L Anion Gap 5 (3-11) BUN 12 (6-23) mg/dl Creatinine 0.68 (0.6-1.2) mg/dl Est Cr Clr Drug Dosing 66.9 ml/min Est GFR ( Amer) 102.7 ml/min Est GFR (Non-Af Amer) 88.6 ml/min BUN/Creatinine Ratio 17.6 (10-20) Glucose 98 (70-99(Fasting)) mg/dl Calcium 9.0 (8.5-10.1) mg/dl Magnesium (1.7-2.4) mg/dl Total Bilirubin 0.6 (0.2-1.0) mg/dl AST 28 (13-39) U/L ALT 16 (7-52) U/L Alkaline Phosphatase 92 (34-104) U/L Troponin I High Sens 4.5 (0-14) pg/ml Total Protein 6.2 (6.0-8.3) gm/dl Albumin 3.9 (3.4-5.0) gm/dl Globulin 2.3 L (2.5-4.0) gm/dl Albumin/Globulin Ratio 1.7 (0.9-2) Lipase 25 (11-82) U/L TSH 12.118 H (0.300-4.500) uIu/ml Free T4 0.85 (0.61-1.60) ng/dl Urine Color Urine Appearance (Clear) Urine pH (4.5-7.5) Ur Specific [place] (1.000-1.030) Urine Protein (Negative) Urine Glucose (UA) (Negative) Urine Ketones (Negative) Urine Blood (Negative) Urine Nitrite (Negative) Urine Bilirubin (Negative) Urine Urobilinogen (Negative) Ur Leukocyte Esterase (Negative) Urine WBC (Auto) (0-5) /hpf Urine RBC (Auto) (0-4) /hpf U Hyaline Cast (Auto) (0-5) /lpf U Epithel Cells (Auto) (0-5) /lpf Urine Bacteria (Auto) (Negative) Salicylates (3.0-30) mg/dl Urine Opiates Screen (Neg) Ur Methadone, Qual (Neg) Acetaminophen (10-30) ug/ml Urine Barbiturates (Neg) Ur Phencyclidine (PCP) (Neg) U Amphetamin/Meth Scrn (Neg) MDMA (Ecstasy) Screen (Neg) U Benzodiazepines Scrn (Neg) Ur Cocaine Metabolite (Neg) U Marijuana (THC) Screen (Neg) Ethyl Alcohol mg/dL (<10.0) mg/dl SARS-CoV-2, RNA, NAAT (NEGATIVE) Medications Administered Atenolol (Atenolol 25 Mg Tablet) 12.5 mg PO DAILY STEFFANIE Stop: 05/19/22 08:59 Last Admin: 04/19/22 09:12 Dose: 12.5 mg Documented By: GUEVARA Atorvastatin Calcium (Atorvastatin 20 Mg Tab) 20 mg PO HS STEFFANIE Stop: 05/18/22 20:59 Last Admin: 04/19/22 00:27 Dose: 20 mg Documented By: CATRACHITA Enoxaparin Sodium (Enoxaparin Inj 40 Mg/0.4 Ml Syr) 40 mg SQ QAM STEFFANIE Stop: 05/19/22 08:59 Last Admin: 04/19/22 09:12 Dose: 40 mg Documented By: GUEVARA Gabapentin (Gabapentin 600 Mg Tab) 600 mg PO BID STEFFANIE Stop: 05/18/22 20:59 Last Admin: 04/19/22 09:12 Dose: 600 mg Documented By: Admin: 04/19/22 00:27 Dose: 600 mg Documented By: CATRACHITA Hydroxyzine HCl (Hydroxyzine Hcl 10 Mg Tab) 10 mg PO QID PRN PRN Reason: Anxiety Stop: 05/18/22 20:41 Last Admin: 04/19/22 10:18 Dose: 10 mg Documented By: GUEVARA Lactated Ringer's (Lr) 1,000 mls @ 50 mls/hr IV .Q20H ONE Stop: 04/19/22 16:40 Last Admin: 04/19/22 00:30 Dose: 50 mls/hr Documented By: CATRACHITA Promethazine HCl 12.5 mg/ (Sodium Chloride) 50.5 mls @ 202 mls/hr IV Q6H PRN PRN Reason: Nausea And Vomiting Stop: 05/18/22 20:40 Last Infusion: 04/19/22 07:10 Dose: 0 mls/hr Documented By: Admin: 04/19/22 06:27 Dose: 202 mls/hr Documented By: CATRACHITA Levothyroxine Sodium (Levothyroxine Sodium 88 Mcg Tablet) 88 mcg PO DAILYBB STEFFANIE Stop: 05/19/22 06:29 Last Admin: 04/19/22 06:26 Dose: 88 mcg Documented By: CATRACHITA Lorazepam (Lorazepam 0.5 Mg Tab) 0.25 mg PO HS PRN PRN Reason: insomnia Stop: 05/18/22 21:58 Last Admin: 04/19/22 00:27 Dose: 0.25 mg Documented By: CATRACHITA Tramadol HCl (Tramadol Hcl 50 Mg Tablet) 25 mg PO Q4H PRN PRN Reason: Pain Stop: 05/18/22 20:41 Last Admin: 04/19/22 09:19 Dose: 25 mg Documented By: Admin: 04/19/22 00:28 Dose: 25 mg Documented By: CATRACHITA Coding Level of Care Code 92927 [facility] Int Hosp Care Lv 1 Diagnoses Major depressive disorder, recurrent episode with anxious distress F33.9 Abdominal pain, acute, epigastric R10.13
--- NOTE | 2022-04-19 13:08 | Gastrointestinal Consultation ---
Date of Consultation April 19, 2022 Assessment & Plan (1) Abdominal pain: (2) Diarrhea: Patient is a 71 years old female currently admitted for abdominal pain, diarrhea and suicidal ideation. Seeing her today for her abdominal pain and diarrhea symptoms. She has had chronic diarrhea that presents intermittently, states that is worse recently with some urgency and nocturnal awakening. She attributed to higher stress and anxiety level while caring for her mother. Work-up in the past and recently including labs, celiac serology, stool studies, abdominal imaging such as CT and KUB are quite unremarkable. Abdominal exam benign today without any guarding, tenderness on examination She has had bidirectional endoscopy evaluation in 2019 which showed some gastritis, diverticulosis, hemorrhoid but otherwise without malignancy or IBD signs. Her symptoms may be related to irritable bowel syndrome. She did however receive antibiotics in the last week, and I would recommend that we repeat her stool studies for culture and C. difficile. Otherwise we will try her on dicyclomine 10 mg twice daily. May also add fiber powder daily. We will reevaluate her symptoms tomorrow. Recommend psychiatric evaluation and suicide precautions per protocol History of Present Illness Reason for Consultation: Abd pain, diarrhea Requesting Physician: Dr. Dayan Pablo Attending Physician: Dr. Porsha Lackey History of Present Illness Patient is a 71 years old female currently admitted for epigastric abdominal pain, diarrhea, and suicidal ideation. GI is consulted to evaluate patient for her symptoms of abdominal pain and diarrhea. Patient was seen by myself for chronic diarrhea symptoms over 2 years ago. Previous work-up including celiac panel, abdominal imaging studies, EGD and colonoscopy were quite unremarkable. Most recently her labs including CBC, CMP, stool culture and C. difficile, KUB also unrevealing of her etiology. He did report that she has had antibiotics within the last week, most recent stool studies was done 4 days ago. Patient reports that her diarrhea comes and goes. Most recently in the last few months she has experienced a lot of stress and anxiety taking care of her mother. Symptoms seems to be worse, currently having a lot of stool urgency after meals. Also has had some nocturnal diarrhea. She denies seeing any blood in the stools or dark tarry stools. She denies trying Imodium previously at home. Has had Pepto-Bismol in the past without much relief. Allergies Allergy/AdvReac Type Severity Reaction Status Date / Time No Known Allergies Allergy Verified 04/15/22 18:40 Home Medications Medication Instructions Recorded Confirmed Type atorvastatin 20 mg tablet 20 mg PO HS 03/10/19 04/18/22 History atenolol 25 mg tablet 25 mg PO BIDM #60 tabs 09/05/21 04/18/22 Rx levothyroxine 88 mcg tablet 88 mcg PO QAM 11/07/21 04/18/22 History gabapentin 600 mg tablet 600 mg PO BID 04/15/22 04/18/22 History meloxicam 15 mg tablet 15 mg PO QAM 04/15/22 04/18/22 History ondansetron HCl 4 mg tablet 4 mg PO Q8 PRN nausea and vomiting 04/15/22 04/18/22 History sertraline 100 mg tablet 100 mg PO QAM 04/15/22 04/18/22 History hydrocodone 5 mg-acetaminophen 325 1 tab PO DAILY 04/18/22 04/18/22 History mg tablet Patient History Medical History Chronic low back pain Depression Generalized anxiety disorder GERD (gastroesophageal reflux disease) Hypercholesteremia Hypertension Major depressive disorder, recurrent episode with anxious distress Osteoporosis Post traumatic stress disorder (PTSD) Scoliosis Suicidal ideation Surgical History S/P hysterectomy Family History Other Cancer Heart disease Social History Smoking Status: Never smoker Second Hand Exposure: No; Hx Alcohol Use: No Hx Substance Use: No Preferred Language: Georgian Communication Ability: Effective Museum Director Required: No Beliefs That Will Affect Care: None Current Living Situation: Alone Feels Safe at Home: Yes Assistive Devices: Glasses Review of Systems Review of Systems: All systems reviewed & are unremarkable except as noted in HPI & below Physical Exam Constitutional: WD/WN, vitals as above well groomed, cooperative and comfortable Eyes: PERRL, conjunctivae normal, anicteric sclerae ENMT: external ear and nose normal, oropharynx normal Respiratory: normal respiratory effort, lungs clear to auscultation Cardiovascular: RRR, no murmur, no edema Gastrointestinal (Abdomen): normal bowel sounds, soft, nontender, no hepatosplenomegaly Skin: no rashes, warm and dry no jaundice Psychiatric: A+Ox3, euthymic affect Lymphatic: no lymphedema Results & Data ([facility]) Vital Signs (Past 12 Hours) Vital Signs Temp Pulse Pulse Resp BP BP Pulse Ox 04/19/22 11:27 36.7 C 60 18 97/58 L 95 04/19/22 08:00 56 L 04/19/22 07:17 36.7 C 54 L 18 140/81 96 04/19/22 03:37 52 L 133/77 O2 Del Method 04/19/22 11:27 Room Air 04/19/22 08:00 04/19/22 07:17 Room Air 04/19/22 03:37 (1) Abdominal pain Abdominal location: generalized Qualified Code(s): R10.84 - Generalized abdominal pain
[2022-04-19] MEDS: PSYLLIUM or GUAR GUM FIBER POWDER PACKET PO SCH (13:44)
--- NOTE | 2022-04-19 15:42 | Hospitalist Progress Note ---
Date of Service April 19, 2022 Assessment & Plan (1) Abdominal pain: (2) Nausea: (3) Diarrhea: (4) Suicidal ideation: (5) Anxiety: (6) Post traumatic stress disorder (PTSD): (7) Major depressive disorder, recurrent episode with anxious distress: Plan 71-year-old female with PMH of IBS, depression, anxiety, suicidal ideation, PTSD, scoliosis and other medical problems listed below who presents for continued abdominal pain and diarrhea. Has been seen in the ED 5 times in the past month for abdominal pain and nausea in the setting of anxiety. CT abdomen pelvis on 04/08 with no bowel wall thickening or obstruction, normal appendix, colonic diverticulosis without evidence for acute diverticulitis. KUB from 04/16 with nonobstructive bowel gas pattern. Was last seen by GI in August 2019 for chronic diarrhea-Per note, stool studies for infections, CT, EGD, colonoscopy, celiac serologies all unrevealing at that time. She is being managed for the following: Abdominal pain/diarrhea Likely IBS flareup Patient with abdominal pain and diarrhea [see above] Patient continues to have loose bowel movements x multiple, on clear liquid diet, reports improving belly pain with medication. GI evaluated, recommends stool PCR, dicyclomine twice daily and fiber powder daily. Monitor and replete electrolytes, electrolyte solution/?pedialytes by bedside. Episodic chest pain : Admitting trop wnl, no cp at bedside exam today. Likely secondary to anxiety Suicidal ideation Patient with no SI/HI at bedside, discussed with psychiatry, will clear one-to-one. Appreciate psychiatry recs. Hypothyroidism: TSH elevated, will increase home levothyroxine dose. Will need repeat TFT in 6 weeks and follow-up with PCP for dose adjustment as appropriate. DVT prophylaxis: Lovenox subcu Full code Dispo: pending improvement in diet and bowel movements. Admission and Anticipated Discharge Date Admission Date: April 18, 2022 Subjective Patient seen and examined at bedside as a follow-up of nausea/diarrhea/abdominal pain and suicidal ideation. Patient was sitting up in bed, on room air, NAD, denies acute event overnight, reports multiple loose stools overnight and in the morning. Monitor and replete electrolytes. Patient denies any headache or dizziness or suicidal ideation or homicidal ideation or chest pain or other review of symptoms. Patient on clear liquid diet and has multiple diarrhea. Patient had asymptomatic bradycardia overnight and atenolol dose has been reduced. Physical Exam Physical Exam: GENERAL: Alert and oriented x3. NAD, on RA. HEENT: No pallor, no icterus. Pupils equal, round and reactive to light. Oral mucosa moist. NECK: No JVD, no neck masses. HEART: S1 and S2 heard. Regular rate and rhythm. No murmur, no gallop. RESPIRATORY SYSTEM: Normal AP diameter. No accessory muscle use. No wheezing, no crackles. ABDOMEN: Soft, bowel sounds present, mild tender diffuse, no distention. CENTRAL NERVOUS SYSTEM: No facial droop. Speech is clear. Obeys simple commands. Moves extremities. EXTREMITIES: No edema, no erythema seen. Results & Data Results & Data ([facility]) Vital Signs (Past 12 Hours) Vital Signs Temp Pulse Pulse Resp BP BP Pulse Ox 04/19/22 15:31 36.7 C 54 L 18 143/79 H 95 04/19/22 11:27 36.7 C 60 18 97/58 L 95 04/19/22 08:00 56 L 04/19/22 07:17 36.7 C 54 L 18 140/81 96 04/19/22 03:37 52 L 133/77 O2 Del Method 04/19/22 15:31 Room Air 04/19/22 11:27 Room Air 04/19/22 08:00 04/19/22 07:17 Room Air 04/19/22 03:37 (1) Abdominal pain Abdominal location: generalized Qualified Code(s): R10.84 - Generalized abdominal pain
[2022-04-19] MEDS: ACETAMINOPHEN 325 MG TAB PO PRN (15:54)
[2022-04-19] MEDS: DICYCLOMINE HCL 10 MG CAP PO SCH (20:35)
[2022-04-19 22:08] LABS: Adenovirus F 40/41 PCR Not Detected (NotDetected); Astrovirus PCR Not Detected (NotDetected); Campylobacter PCR Not Detected (NotDetected); Clostridium diff Toxin A/B PCR Not Detected (NotDetected); Cryptosporidium PCR Not Detected (NotDetected); Cyclospora cayetanensis PCR Not Detected (NotDetected); Entamoeba histolytica PCR Not Detected (NotDetected); Enteroaggregative E.coli(EAEC) Not Detected (NotDetected); Enteropathogenic E.coli (EPEC) Not Detected (NotDetected); Enterotoxigenic E.coli (ETEC) Not Detected (NotDetected); Giardia lamblia PCR Not Detected (NotDetected); Norovirus GI/GII PCR Not Detected (NotDetected); Plesiomonas shigelloides PCR Not Detected (NotDetected); Rotavirus A PCR Not Detected (NotDetected); Salmonella PCR Not Detected (NotDetected); Sapovirus PCR Not Detected (NotDetected); Shiga-like Toxin E.coli (STEC) Not Detected (NotDetected); Shigella/Enteroinvasive E.coli Not Detected (NotDetected); Vibrio cholerae PCR Not Detected (NotDetected); Vibrio species PCR Not Detected (NotDetected); Yersinia enterocolitica PCR Not Detected (NotDetected)
--- NOTE | 2022-04-19 22:27 | Electrocardiogram Report ---
Test Reason : Blood Pressure : / mmHG Vent. Rate : 052 BPM Atrial Rate : 052 BPM P-R Int : 146 ms QRS Dur : 086 ms QT Int : 472 ms P-R-T Axes : 012 -08 188 degrees QTc Int : 438 ms Sinus bradycardia T wave abnormality, consider anterior ischemia Abnormal ECG When compared with ECG of 16-APR-2022 16:04, Premature atrial complexes are no longer Present Confirmed by Franki Lopez ([id number]) on 04/19/2022 10:27:15 PM Referred By: REFERRED SELF Confirmed By:Franki Lopez
[2022-04-20] MEDS: LEVOTHYROXINE SODIUM 100 MCG TABLET PO SCH (06:11)
[2022-04-20] MEDS: PROMETHAZINE HCL 12.5 MG in SODIUM CHLORIDE 0.9% 50 ML IV PRN ×2 (06:25→18:48)
[2022-04-20 07:12] LABS: Hematocrit (blood only) 39.2 % (34.1-44.9); Hemoglobin 13.8 g/dl (12.0-16.0); Mean Corpuscular Hemoglobin 31.9 pg (25.0-34.0); Mean Corpuscular Hgb Conc 35.2 g/dL (32.0-36.0); Mean Corpuscular Volume 90.5 fL (80.0-100.0); Mean Platelet Volume 11.3 fL (9.4-12.3); Platelet Count 223 K/uL (130-400); RDW Coefficient of Variation 13.8 % (11.5-14.5); RDW Standard Deviation 45.3 fL (36.4-46.3); Red Blood Count 4.33 M/uL (3.93-5.22); White Blood Count 7.95 K/ul (4.8-10.8)
[2022-04-20] MEDS: DICYCLOMINE HCL 10 MG CAP PO SCH ×4 (08:32→21:33)
[2022-04-20] MEDS: GABAPENTIN 600 MG TAB PO SCH ×2 (08:32→21:34)
[2022-04-20] MEDS: ATENOLOL 25 MG TABLET PO SCH (08:32)
[2022-04-20] MEDS: PSYLLIUM or GUAR GUM FIBER POWDER PACKET PO SCH ×3 (08:32→21:34)
[2022-04-20] MEDS: ENOXAPARIN INJ 40 MG/0.4 ML SYR SQ SCH (08:33)
[2022-04-20] MEDS: traMADol HCL 50 MG TABLET PO PRN ×2 (08:38→15:47)
--- NOTE | 2022-04-20 08:55 | Gastroenterology Progress Note ---
Date of Service April 20, 2022 Assessment & Plan (1) Diarrhea: Plan: Patient is a 71 years old female currently admitted for abdominal pain, diarrhea and suicidal ideation. She has had chronic diarrhea that presents intermittently, states that is worse recently with some urgency and nocturnal awakening. She attributed to higher stress and anxiety level while caring for her mother. + antibx exposure in the last week. Work-up in the past and recently including labs, celiac serology, stool studies, abdominal imaging such as CT and KUB are quite unremarkable. She also has had bidirectional endoscopy evaluation in 2019 which showed some gastritis, diverticulosis, hemorrhoid but otherwise without malignancy or IBD signs. Her symptoms may be related to irritable bowel syndrome. Repeat Cdiff, stool cx negative. She is still having some stool urgency and loose stools, wo rectal bleeding or significant abd pain, n/v. - Increased Dicyclomine to 10mg TID; fiber packet BID - Advanced to regular diet - Psychiatric evaluation and suicide precautions per protocol - Will monitor peripherally. If no improvement may consider repeat colonoscopy Admission and Anticipated Discharge Date Admission Date: April 18, 2022 Subjective Pt reports still having stool urgency and loose stools in the morning after breakfast. She would like diet advanced to solids. Denies significant amt of abd pain, n/v. No rectal bleeding. Review of Systems Review of Systems: All systems reviewed & are unremarkable except as noted in HPI & below Physical Exam Constitutional: WD/WN, vitals as above well groomed, cooperative and comfortable Eyes: PERRL, conjunctivae normal, anicteric sclerae ENMT: external ear and nose normal, oropharynx normal Respiratory: normal respiratory effort, lungs clear to auscultation Cardiovascular: RRR, no murmur, no edema Gastrointestinal (Abdomen): soft, mild ttp mid lower abd, no guarding, bs present Skin: no rashes, warm and dry no jaundice Psychiatric: A+Ox3, euthymic affect Lymphatic: no lymphedema Results & Data ([facility]) Vital Signs (Past 12 Hours) Vital Signs Temp Pulse Pulse Resp BP Pulse Ox O2 Del Method 04/20/22 08:24 36.8 C 61 18 168/83 H 97 Room Air 04/20/22 05:04 36.6 C 61 18 156/94 H 97 Room Air 04/19/22 22:38 36.7 C 56 L 20 156/90 H 95 Room Air 04/19/22 22:31 62
[2022-04-20] MEDS: hydrOXYzine HCl 10 MG TAB PO PRN (09:36)
[2022-04-20 10:33] LABS: BUN Creatinine Ratio 8.1 (10-20); Calcium 8.4 mg/dl (8.5-10.1); Creatinine Clr Calc Pharmacy 74.2 ml/min; Est GFR (African American) 105.9 ml/min; Est GFR (Non-African American) 91.4 ml/min; Magnesium 1.8 mg/dl (1.7-2.4); Phosphorus 4.1 mg/dl (2.5-4.9); Potassium 2.8 mmol/L (3.5-5.1)
[2022-04-20] MEDS: PANTOprazole 40 MG TAB PO SCH (10:58)
[2022-04-20] MEDS ORDERED: POTASSIUM CHLORIDE CRTAB 20 MEQ TABCR PO STA (11:11)
--- NOTE | 2022-04-20 11:21 | Communication Note ---
Date of Service: April 20, 2022 patient continues to deny SI and need for inpatient psychiatric care. Liaison attempted to assist with referral to [facility] and/or return to [place] for possible trial of augmentation of Zoloft with Abilify. Patient ultimately declines, feels that her mental health is improved with her physical health being addressed and has county resource manual. She would like to resume Zoloft when hospitalist feels appropriate. No additional discharge recs at this time but will offer redo/re-review of her safety plan per liaison.
--- NOTE | 2022-04-20 12:07 | Hospitalist Progress Note ---
Date of Service April 20, 2022 Assessment & Plan (1) Abdominal pain: (2) Nausea: (3) Diarrhea: (4) Suicidal ideation: (5) Anxiety: (6) Post traumatic stress disorder (PTSD): (7) Major depressive disorder, recurrent episode with anxious distress: Plan 71-year-old female with PMH of IBS, depression, anxiety, suicidal ideation, PTSD, scoliosis and other medical problems listed below who presents for continued abdominal pain and diarrhea. Has been seen in the ED 5 times in the past month for abdominal pain and nausea in the setting of anxiety. CT abdomen pelvis on 04/08 with no bowel wall thickening or obstruction, normal appendix, colonic diverticulosis without evide nce for acute diverticulitis. KUB from 04/16 with nonobstructive bowel gas pattern. Was last seen by GI in August 2019 for chronic diarrhea-Per note, stool studies for infections, CT, EGD, colonoscopy, celiac serologies all unrevealing at that time. : Abdominal pain/diarrhea Likely IBS flareup Patient with abdominal pain and diarrhea Patient continues to have loose bowel movements x multiple Reports symptoms mildly improved GI on board. Increased dicyclomine to TID. Started on fiber Diet advanced Continue to monitor electrolytes Has hypokalemia at 2.8 today. PO and IV repletion ordered Continue to monitor Episodic chest pain : Admitting trop wnl, Denied any chest pain today Likely secondary to anxiety Suicidal ideation Patient with no SI/HI Psych recs noted. Has been off I to 1 per psych recs yesterday Will consider resuming zoloft or adding abilify whence patient is agreeable Hypothyroidism: TSH elevated, Home levothyroxine was increased to 100mcg daily from 88mcg on 04/20/22 Will need repeat TFT in 6 weeks and follow-up with PCP for dose adjustment as appropriate. DVT prophylaxis: Lovenox subcu Full code Dispo: pending improvement in diet and bowel movements. Admission and Anticipated Discharge Date Admission Date: April 18, 2022 Subjective Patient seen and examined. Continues to report of intermittent crampy abdominal pain associated with nausea Continues to have diarrhea. Reports about 2 episodes since this morning. Denies hematochezia or melena Denies dysuria, frequency, urgency, hematuria Denies fevers or chills Denies chest pain, cough, shortness of breath Reports history of anxiety. Denies suicidal or homicidal ideation Physical Exam Constitutional: + well hydrated; no acute distress Eyes: PERRL, conjunctivae normal, anicteric sclerae ENMT: external ear and nose normal, oropharynx normal Respiratory: normal respiratory effort, lungs clear to auscultation Cardiovascular: Rate/Rhythm: regular rate and regular rhythm S1-S2 Gastrointestinal (Abdomen): normal bowel sounds, soft, nontender, no hepatosplenomegaly Musculoskeletal: no cyanosis or clubbing, extremities motor strength 5/5 Neurologic: PERRL, EOMI, accommodation nl, no face palsy, no dysarthria Psychiatric: A+Ox3, euthymic affect Results & Data Results & Data ([facility]) Vital Signs (Past 12 Hours) Vital Signs Temp Pulse Pulse Resp BP Pulse Ox O2 Del Method 04/20/22 08:00 52 L 04/20/22 10:47 36.6 C 62 18 139/76 97 Room Air 04/20/22 08:24 36.8 C 61 18 168/83 H 97 Room Air 04/20/22 05:04 36.6 C 61 18 156/94 H 97 Room Air Laboratory Results Abnormal lab results 04/20/22 Range/Units 06:22 Potassium 2.8 L D (3.5-5.1) mmol/L BUN 5 L (6-23) mg/dl BUN/Creatinine Ratio 8.1 L (10-20) Calcium 8.4 L (8.5-10.1) mg/dl (1) Abdominal pain Abdominal location: generalized Qualified Code(s): R10.84 - Generalized abdominal pain
[2022-04-20] MEDS: POTASSIUM CHLORIDE / WTR 10 MEQ/100 ML PLCT IV SCH ×4 (12:27→15:44)
[2022-04-20] MEDS: LORazepam 0.5 MG TAB PO PRN (21:32)
[2022-04-20] MEDS: ATORVASTATIN 20 MG TAB PO SCH (21:34)
[2022-04-21] MEDS: LEVOTHYROXINE SODIUM 100 MCG TABLET PO SCH (05:36)
[2022-04-21] MEDS: GABAPENTIN 600 MG TAB PO SCH ×2 (07:50→20:23)
[2022-04-21] MEDS: DICYCLOMINE HCL 10 MG CAP PO SCH ×3 (07:50→20:23)
[2022-04-21] MEDS: ATENOLOL 25 MG TABLET PO SCH (07:50)
[2022-04-21] MEDS: PANTOprazole 40 MG TAB PO SCH (07:50)
[2022-04-21] MEDS: ENOXAPARIN INJ 40 MG/0.4 ML SYR SQ SCH (07:51)
[2022-04-21] MEDS: PSYLLIUM or GUAR GUM FIBER POWDER PACKET PO SCH ×2 (07:52→20:23)
[2022-04-21 08:09] LABS: Hematocrit (blood only) 43.7 % (34.1-44.9); Mean Corpuscular Hemoglobin 32.2 pg (25.0-34.0); Mean Corpuscular Hgb Conc 34.3 g/dL (32.0-36.0); Mean Corpuscular Volume 93.8 fL (80.0-100.0); Mean Platelet Volume 11.2 fL (9.4-12.3); Platelet Count 251 K/uL (130-400); RDW Coefficient of Variation 14.2 % (11.5-14.5); RDW Standard Deviation 48.4 fL (36.4-46.3); Red Blood Count 4.66 M/uL (3.93-5.22); White Blood Count 8.57 K/ul (4.8-10.8)
[2022-04-21 08:33] LABS: BUN Creatinine Ratio 8.2 (10-20); Calcium 9.2 mg/dl (8.5-10.1); Est GFR (African American) 96.7 ml/min; Est GFR (Non-African American) 83.4 ml/min; Magnesium 1.9 mg/dl (1.7-2.4); Phosphorus 4.1 mg/dl (2.5-4.9); Potassium 4.5 mmol/L (3.5-5.1)
[2022-04-21] MEDS: PROMETHAZINE HCL 12.5 MG in SODIUM CHLORIDE 0.9% 50 ML IV PRN ×2 (08:40→15:07)
[2022-04-21] MEDS ORDERED: PANTOprazole 40 MG TAB PO SCH (10:00)
[2022-04-21] MEDS: SERTRALINE HCL 100 MG TABLET PO SCH (11:03)
--- NOTE | 2022-04-21 11:55 | Hospitalist Progress Note ---
Date of Service April 21, 2022 Assessment & Plan (1) Abdominal pain: (2) Nausea: (3) Diarrhea: (4) Suicidal ideation: (5) Anxiety: (6) Post traumatic stress disorder (PTSD): (7) Major depressive disorder, recurrent episode with anxious distress: Plan 71-year-old female with PMH of IBS, depression, anxiety, suicidal ideation, PTSD, scoliosis and other medical problems listed below who presents for continued abdominal pain and diarrhea. Has been seen in the ED 5 times in the past month for abdominal pain and nausea in the setting of anxiety. CT abdomen pelvis on 04/08 with no bowel wall thickening or obstruction, normal appendix, colonic diverticulosis without evide nce for acute diverticulitis. KUB from 04/16 with nonobstructive bowel gas pattern. Was last seen by GI in August 2019 for chronic diarrhea-Per note, stool studies for infections, CT, EGD, colonoscopy, celiac serologies all unrevealing at that time. : Abdominal pain/diarrhea Likely IBS flareup Patient with abdominal pain and diarrhea Symptoms are improving GI on board. Continue dicyclomine to TID. Continue to monitor electrolytes Episodic chest pain : Admitting trop wnl, Denied any chest pain today Likely secondary to anxiety Suicidal ideation Patient with no SI/HI Psych recs noted. Has been off I to 1 per psych recs Patient's zoloft resumed. She stated she did not want to follow up at [facility] due to med adjustments in the past. After much conversation about need for psych f/u and med adjustments are usually needed when mood disorders are not well controlled, she agree to follow up with psych at [facility] on dc Hypothyroidism: TSH elevated, Home levothyroxine was increased to 100mcg daily from 88mcg on 04/20/22 Will need repeat TFT in 6 weeks and follow-up with PCP for dose adjustment as appropriate. DVT prophylaxis: Lovenox subcu Full code Admission and Anticipated Discharge Date Admission Date: April 20, 2022 Subjective Patient seen and examined. Reports diarrhea and nausea this AM Reports no abd pain today Denies hematochezia or melena Denies dysuria, frequency, urgency, hematuria Denies fevers or chills Denies chest pain, cough, shortness of breath Reports episode of anxiety overnight Denies suicidal or homicidal ideation Physical Exam Constitutional: + well hydrated; no acute distress Eyes: PERRL, conjunctivae normal, anicteric sclerae ENMT: external ear and nose normal, oropharynx normal Respiratory: normal respiratory effort, lungs clear to auscultation Cardiovascular: Rate/Rhythm: regular rate and regular rhythm S1 S2 Gastrointestinal (Abdomen): normal bowel sounds, soft, nontender, no hepatosplenomegaly Musculoskeletal: no cyanosis or clubbing, extremities motor strength 5/5 Neurologic: PERRL, EOMI, accommodation nl, no face palsy, no dysarthria Psychiatric: A+Ox3, euthymic affect Results & Data Results & Data ([facility]) Vital Signs (Past 12 Hours) Vital Signs Temp Pulse Resp BP BP Pulse Ox O2 Del Method 04/21/22 10:58 37.0 C 57 L 18 124/82 94 Room Air 04/21/22 07:33 36.7 C 60 16 150/91 H 98 Room Air 04/21/22 03:42 36.6 C 70 18 147/95 H 97 Room Air 04/21/22 00:05 36.9 C 55 L 18 132/73 98 Room Air Laboratory Results Abnormal lab results 04/21/22 04/21/22 Range/Units 07:47 07:47 RDW Std Deviation 48.4 H (36.4-46.3) fL BUN/Creatinine Ratio 8.2 L (10-20) (1) Abdominal pain Abdominal location: generalized Qualified Code(s): R10.84 - Generalized abdominal pain
[2022-04-21] MEDS: ACETAMINOPHEN 325 MG TAB PO PRN ×2 (14:43→20:34)
[2022-04-21] MEDS: traMADol HCL 50 MG TABLET PO PRN (17:47)
[2022-04-21] MEDS: ATORVASTATIN 20 MG TAB PO SCH (20:23)
[2022-04-21] MEDS: hydrOXYzine HCl 10 MG TAB PO PRN (20:56)
[2022-04-22] MEDS: LORazepam 0.5 MG TAB PO PRN (04:44)
[2022-04-22] MEDS: LEVOTHYROXINE SODIUM 100 MCG TABLET PO SCH (05:39)
[2022-04-22 06:27] LABS: Hematocrit (blood only) 41.3 % (34.1-44.9); Mean Corpuscular Hemoglobin 31.7 pg (25.0-34.0); Mean Corpuscular Hgb Conc 33.9 g/dL (32.0-36.0); Mean Corpuscular Volume 93.4 fL (80.0-100.0); Mean Platelet Volume 11.1 fL (9.4-12.3); Platelet Count 227 K/uL (130-400); RDW Coefficient of Variation 13.9 % (11.5-14.5); RDW Standard Deviation 47.1 fL (36.4-46.3); Red Blood Count 4.42 M/uL (3.93-5.22); White Blood Count 6.99 K/ul (4.8-10.8)
[2022-04-22 07:13] LABS: BUN Creatinine Ratio 11.5 (10-20); Calcium 8.8 mg/dl (8.5-10.1); Creatinine Clr Calc Pharmacy 76.4 ml/min; Est GFR (African American) 106.5 ml/min; Est GFR (Non-African American) 91.9 ml/min; Magnesium 1.8 mg/dl (1.7-2.4); Phosphorus 4.6 mg/dl (2.5-4.9); Potassium 3.8 mmol/L (3.5-5.1)
[2022-04-22] MEDS: PSYLLIUM or GUAR GUM FIBER POWDER PACKET PO SCH ×2 (08:28→20:17)
[2022-04-22] MEDS: ENOXAPARIN INJ 40 MG/0.4 ML SYR SQ SCH (08:28)
[2022-04-22] MEDS: GABAPENTIN 600 MG TAB PO SCH ×2 (08:28→20:16)
[2022-04-22] MEDS: SERTRALINE HCL 100 MG TABLET PO SCH (08:28)
[2022-04-22] MEDS: ATENOLOL 25 MG TABLET PO SCH (08:28)
[2022-04-22] MEDS: PANTOprazole 40 MG TAB PO SCH (08:28)
[2022-04-22] MEDS: DICYCLOMINE HCL 10 MG CAP PO SCH ×3 (08:28→20:16)
[2022-04-22] MEDS: PROMETHAZINE HCL 12.5 MG in SODIUM CHLORIDE 0.9% 50 ML IV PRN (09:06)
--- NOTE | 2022-04-22 14:04 | Hospitalist Progress Note ---
Date of Service April 22, 2022 Assessment & Plan (1) Abdominal pain: (2) Nausea: (3) Diarrhea: (4) Suicidal ideation: (5) Anxiety: (6) Post traumatic stress disorder (PTSD): (7) Major depressive disorder, recurrent episode with anxious distress: Plan 71-year-old female with PMH of IBS, depression, anxiety, suicidal ideation, PTSD, scoliosis and other medical problems listed below who presents for continued abdominal pain and diarrhea. Has been seen in the ED 5 times in the past month for abdominal pain and nausea in the setting of anxiety. CT abdomen pelvis on 04/08 with no bowel wall thickening or obstruction, normal appendix, colonic diverticulosis without evidence for acute diverticulitis. KUB from 04/16 with nonobstructive bowel gas pattern. Was last seen by GI in August 2019 for chronic diarrhea-Per note, stool studies for infections, CT, EGD, colonoscopy, celiac serologies all unrevealing at that time. : Abdominal pain/diarrhea Likely IBS flareup Patient with abdominal pain and diarrhea Symptoms are improving Unclear if number of episodes yesterday were exaggerated or missed documentation by RN. I spoke with patient and RN about need to notify RN about every BM to ensure proper documentation Will follow up tomorrow GI recs noted. Continue dicyclomine to TID. Continue to monitor electrolytes Episodic chest pain : Admitting trop wnl, Denied any chest pain today Likely secondary to anxiety Suicidal ideation Patient with no SI/HI Psych recs noted. Has been off I to 1 per psych recs Patient's zoloft resumed. Patient to follow up with psych outpatient Hypothyroidism: TSH elevated, Home levothyroxine was increased to 100mcg daily from 88mcg on 04/20/22 Will need repeat TFT in 6 weeks and follow-up with PCP for dose adjustment as appropriate. DVT prophylaxis: Lovenox subcu Full code Admission and Anticipated Discharge Date Admission Date: April 20, 2022 Subjective Patient seen and examined. Reports diarrhea and nausea this AM Reported she had up to 5 episodes of diarrhea yesterday. However, only 2 were recorded per RN Abd pain is resolved Denies hematochezia or melena Denies dysuria, frequency, urgency, hematuria Denies fevers or chills Denies chest pain, cough, shortness of breath Denies suicidal or homicidal ideation Physical Exam Constitutional: + well hydrated; no acute distress Eyes: PERRL, conjunctivae normal, anicteric sclerae ENMT: external ear and nose normal, oropharynx normal Respiratory: normal respiratory effort, lungs clear to auscultation Cardiovascular: Rate/Rhythm: regular rate and regular rhythm S1 S2 Gastrointestinal (Abdomen): normal bowel sounds, soft, nontender, no hepatosplenomegaly Musculoskeletal: no cyanosis or clubbing, extremities motor strength 5/5 Neurologic: PERRL, EOMI, accommodation nl, no face palsy, no dysarthria Psychiatric: A+Ox3, euthymic affect Results & Data Results & Data ([facility]) Vital Signs (Past 12 Hours) Vital Signs Temp Pulse Pulse Pulse Pulse Resp BP 04/22/22 06:07 53 L 04/22/22 11:05 36.7 C 55 L 12 132/80 04/22/22 08:17 36.6 C 78 16 148/94 H 04/22/22 08:04 36.6 C 72 16 142/64 H 04/22/22 03:54 36.7 C 54 L 18 132/78 Pulse Ox O2 Del Method 04/22/22 06:07 04/22/22 11:05 94 Room Air 04/22/22 08:17 94 Room Air 04/22/22 08:04 94 Room Air 04/22/22 03:54 96 Room Air Laboratory Results Abnormal lab results 04/22/22 Range/Units 05:48 RDW Std Deviation 47.1 H (36.4-46.3) fL (1) Abdominal pain Abdominal location: generalized Qualified Code(s): R10.84 - Generalized abdominal pain
[2022-04-22] MEDS: ATORVASTATIN 20 MG TAB PO SCH (20:16)
[2022-04-23] MEDS: PROMETHAZINE HCL 12.5 MG in SODIUM CHLORIDE 0.9% 50 ML IV PRN (03:12)
[2022-04-23] MEDS: LEVOTHYROXINE SODIUM 100 MCG TABLET PO SCH (05:44)
[2022-04-23 07:06] LABS: BUN Creatinine Ratio 19.4 (10-20); Calcium 8.9 mg/dl (8.5-10.1); Creatinine Clr Calc Pharmacy 64.6 ml/min; Est GFR (African American) 98.3 ml/min; Est GFR (Non-African American) 84.9 ml/min; Potassium 4.2 mmol/L (3.5-5.1)
[2022-04-23] MEDS: traMADol HCL 50 MG TABLET PO PRN (07:54)
[2022-04-23] MEDS: SERTRALINE HCL 100 MG TABLET PO SCH (07:55)
[2022-04-23] MEDS: DICYCLOMINE HCL 10 MG CAP PO SCH ×2 (07:55→13:06)
[2022-04-23] MEDS: ATENOLOL 25 MG TABLET PO SCH (07:55)
[2022-04-23] MEDS: PANTOprazole 40 MG TAB PO SCH (07:55)
[2022-04-23] MEDS: ENOXAPARIN INJ 40 MG/0.4 ML SYR SQ SCH (07:56)
[2022-04-23] MEDS: GABAPENTIN 600 MG TAB PO SCH (07:56)
[2022-04-23] MEDS: PSYLLIUM or GUAR GUM FIBER POWDER PACKET PO SCH (07:56)
--- NOTE | 2022-04-23 12:27 | Discharge Summary ---
Discharge Summary Date of Service April 23, 2022 Notes For Next Care Provider Patient should follow up GI outpatient Needs to follow up with Psychiatry Please repeat Thyroid function test in 6-8 weeks Medication Changes From Visit Atenolol changed to 12.5mg daily Levothyroxine was increased from 88mcq to 100mcg while inpatient based on TFT. Started on dicyclomine prn abdominal pain Admission HPI Per Admitting Provider This is a 71-year-old female with PMH of IBS, depression, anxiety, suicidal ideation, PTSD, scoliosis and other medical problems listed below who presents for continued abdominal pain and diarrhea. Describes pain in epigastrium as aching and worse with movement. Also continues to have watery diarrhea with some episodes of fecal incontinence. Also notable suicidal ideation that she could "end it all" during interview by ED physician. Patient was admitted to psychiatric service this past August due to suicidal ideation and worsening depression in the setting of multiple life stressors, including transitioning her elderly mother into a [facility]ci facility. Had medications adjusted at that time. Has been seen in the ED 5 times in the past month for abdominal pain and nausea in the setting of anxiety. CT abdomen pelvis on 04/08 with no bowel wall thickening or obstruction, normal appendix, colonic diverticulosis without evidence for acute diverticulitis. KUB from 04/16 with nonobstructive bowel gas pattern. Was last seen by GI in August 2019 for chronic diarrhea-Per note, stool studies for infections, CT, EGD, colonoscopy, celiac serologies all unrevealing at that time. Currently comfortable at rest without epigastric pain. Occasional nausea. Admits to feeling very anxious. Feels depressed but not as much as sometimes. No fever, chills, headache, CP, SOB, vomiting, dysuria or constipation. When asked if suicidal she answered, "not right now." Admission Exam Per Admitting Provider General Appearance:WD/WN, vitals as above, NAD, sitting up in bed, conversing easily, anxious Head: normocephalic, atraumatic Eyes:normal inspection, PERRL, conjunctivae normal, anicteric sclerae ENT: external ear and nose normal, oropharynx normal Neck: normal visual inspection, trachea midline, no thyromegaly Respiratory:normal respiratory effort, lungs clear to auscultation, no wheeze, rales, rhonchi. No accessory muscle use Cardiovascular: regular rate, rhythm, no murmur, normal peripheral pulses, no BLE edema. Vessels: no JVD Chest: normal inspection of chest Abdomen/GI: normal bowel sounds, soft, TTP of epigastrium, no guarding, no hepatosplenomegaly Extremities/Musculoskeletal: no cyanosis or clubbing, extremities motor strength 5/5 Neurologic: PERRL, EOMI, accommodation nl, no face palsy, no dysarthria, CN's II-XI intact bilaterally and moves all extremities Psychiatric:A+Ox3, + anxious Skin: no rashes, normal color, warm/dry Principal Dx & Hospital Course #1 = Principal Diagnosis (1) Abdominal pain: (2) Nausea: (3) Diarrhea: (4) Suicidal ideation: (5) Anxiety: (6) Post traumatic stress disorder (PTSD): (7) Major depressive disorder, recurrent episode with anxious distress: Plan 71-year-old female with PMH of IBS, depression, anxiety, suicidal ideation, PTSD, scoliosis and other medical problems listed below who presents for continued abdominal pain and diarrhea. Has been seen in the ED 5 times in the past month for abdominal pain and nausea in the setting of anxiety. CT abdomen pelvis on 04/08 with no bowel wall thickening or obstruction, normal appendix, colonic diverticulosis without evidence for acute diverticulitis. KUB from 04/16 with nonobstructive bowel gas pattern. Was last seen by GI in August 2019 for chronic diarrhea-Per note, stool studies for infections, CT, EGD, colonoscopy, celiac serologies all unrevealing at that time. : Abdominal pain/diarrhea Likely IBS flareup Patient with abdominal pain and diarrhea GI stool panel is negative Symptoms improved Abd pain resolved with dicyclomine Diarrhea remarkably improved Patient was comanaged with GI while inpatient. Patient advised to follow up with GI outpatient Episodic chest pain : Admitting trop within normal on presentation Likely secondary to anxiety Suicidal ideation Patient had reported suicidal ideation after admission Was evaluated and cleared by psych Denies any SI/HI at this time Continue home zoloft Patient needs to follow up with Psychiatrist outpatient She agreed to follow up at [facility] as well Hypothyroidism: TSH elevated at 12.118 Patient reported adherence to meds Home levothyroxine was increased to 100mcg daily from 88mcg on 04/20/22 PCP to repeat TFT in 6-8 weeks and make adjustment as appropriate. Discharge Exam Constitutional + well hydrated; no acute distress Eyes PERRL, conjunctivae normal, anicteric sclerae ENMT external ear and nose normal, oropharynx normal Respiratory normal respiratory effort, lungs clear to auscultation Cardiovascular Rate/Rhythm: regular rate and regular rhythm S1 S2 Gastrointestinal (Abdomen) normal bowel sounds, soft, nontender, no hepatosplenomegaly Musculoskeletal no cyanosis or clubbing, extremities motor strength 5/5 Neurologic PERRL, EOMI, accommodation nl, no face palsy, no dysarthria Psychiatric A+Ox3, euthymic affect Updated Medication List Medication Instructions Recorded Confirmed Type atorvastatin 20 mg tablet 20 mg PO HS 03/10/19 04/18/22 History gabapentin 600 mg tablet 600 mg PO BID 04/15/22 04/18/22 History meloxicam 15 mg tablet 15 mg PO QAM 04/15/22 04/18/22 History sertraline 100 mg tablet 100 mg PO QAM 04/15/22 04/18/22 History hydrocodone 5 mg-acetaminophen 325 1 tab PO DAILY 04/18/22 04/18/22 History mg tablet atenolol 25 mg tablet 12.5 mg PO DAILY #30 tabs 04/23/22 Rx dicyclomine 10 mg capsule 10 mg PO TID PRN Abdominal cramps 04/23/22 Rx #20 caps levothyroxine 100 mcg tablet 100 mcg PO DAILYBB #30 tabs 04/23/22 Rx (Synthroid) ondansetron HCl 4 mg tablet 4 mg PO Q8 PRN nausea and vomiting 04/23/22 Rx #20 tabs Hospital Stay Data Consultations 04/18/22 19:14 ED Decision to Admit Stat 04/18/22 20:42 Consult Psychiatry Routine 04/18/22 23:04 Consult Gastroenterology Routine Pending Results Patient Have Any Pending Studies at Discharge: No Discharge Instructions Given to Patient (Per Discharging Provider) Mrs Gama You came to the hospital complaining of abdominal pain and diarrhea. You were evaluated and treated for these. Your symptoms are improving. Please use dicyclomine as needed for abdominal crampy pain. Please use zofran for nausea as needed. Some medication adjustments were made to your medications: Your atenolol was reduced to 12.5mg once a day due to low heart rate. Your levothyroxine was increased to 100mcg daily. Your Primary doctor will reevaluate your thyroid function in 6-8 weeks. Please ensure follow up with your Primary Doctor and Gastroenterology. Please ensure follow up with Psychiatry. It was a pleasure taking care of you. Total Time Total Time Spent Total Time Spent (In Minutes): 45 Total Time Includes: Examination of the Patient, Discharge Planning and Medication Reconciliation
[2022-04-23] MEDS: ACETAMINOPHEN 325 MG TAB PO PRN (13:07)
== END 2022-04-23 15:07 | disposition home or self-care (01) | DRG 392 ==
LOC: ED 15:40 → 2W 15:40 → SUATTDRO 20:39 → 2W 22:40

== ENCOUNTER 2023-02-18 07:38 | Inpatient (IN) ==
[2023-02-18] MEDS ORDERED: METOCLOPRAMIDE HCL INJ 5 MG/ML 2 ML VIAL IV STA (07:59)
[2023-02-18] MEDS ORDERED: SODIUM CHLORIDE 0.9% 1000ML 1,000 ML IV SCH (08:00)
--- NOTE | 2023-02-18 08:04 | Emergency Department Note ---
Impression & Plan Nausea, Gastroparesis, Abdominal pain ED Provider Note Provider: Jeff Beach MD DATE OF SERVICE: 02/18/2023 CHIEF COMPLAINT: Vomiting, gastroparesis HISTORY OF PRESENT ILLNESS: Patient is a 72-year-old female past medical history of IBS, gastroparesis, PTSD, anxiety, hypertension presenting here today for evaluation of worsening over the past few weeks of upper abdominal discomfort with nausea and vomiting and some nonbloody diarrhea. Reports mother did have COVID recently but the patient denies other URI symptoms. Was here earlier in the week and seen. Ongoing chronic issues with gastroparesis. On some Reglan at home but not helping much. No syncope reports occasional palpitations. Limited intake. Denies urinary symptoms. Denies any blood in the vomit or diarrhea. After being seen here has been in bed and minimally walking around and unable to eat or drink much at home according to patient and family at bedside. PAST MEDICAL HISTORY: As noted above MEDICATIONS: Reviewed home medication list SOCIAL HISTORY: Lives at home PHYSICAL EXAM: GENERAL: alert and oriented in no acute distress on stretcher somewhat fatigued in appearance and occasionally tearful during H&P Head: normocephalic and atraumatic EYES: No injection, purulent discharge or icterus. PERRL NECK: Trachea midline. Supple. ENT: Mucous membranes pink and moist. LUNGS: Airway patent. No retractions. Breath sounds clear with good air entry bilaterally. HEART: Regular rate and rhythm. No chest wall tenderness ABDOMEN: Soft with some mild mid upper abdominal tenderness. SKIN: Acyanotic, warm, dry, without rashes EXTREMITIES: Without swelling, tenderness or deformity NEUROLOGICAL: No focal deficits. No aphasia. No facial droop or slurred speech. Ambulatory. EK bpm sinus bradycardia with sinus arrhythmia. No PVC. No acute ST segment elevation or depression with a QTc of 432. Nonspecific anterior T wave changes. CONTINUOUS CARDIAC MONITORING: was ordered and showed a heart rate of 50s bpm in sinus bradycardia Patient's laboratory studies and imaging reviewed. Differential includes Gastroenteritis, food borne illness, infections, appendicitis, diverticulitis, inflammatory bowel disease, IBS, gastroparesis, obstruction, GI bleed, biliary pathology, cardiac disease, as well as other pathologies. IMPRESSION/MEDICAL DECISION MAKING: Patient ambulatory here and somewhat tearful and with some frustration given her ongoing abdominal issues. Denies any blood in the vomit or diarrhea she has been to really having. Was some exposure to COVID several weeks ago and will perform test here today. Denies significant symptoms. Occasionally palpitation to an EKG obtained. Electrolytes sent as well as basic labs. Will perform CT scan and pelvis given her abdominal pain issues requiring repeat visit here today. Blood was today without leukocytosis or anemia. No evidence of significant electrolyte abnormality or renal dysfunction today. No evidence of hepatitis or pancreatitis based on labs. Troponin not elevated and again doubt this is cardiac in nature. CT of the abdomen pelvis per the reviewed report shows some fluid-filled colon questioning a diarrheal illness with maybe a little bit of low-grade colitis. No evidence obstruction or appendicitis. C OVID testing negative. Discussed with her and family at bedside the findings. Was given some Zofran to see if this would help with her nausea as well. There are no recent antibiotics and I doubt C. difficile at this time however stool testing was ordered if sample is provided. Could be may be a bit of viral colitis but do not feel antibiotics are indicated. 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 Discussed with her that Reglan often does help with gastroparesis but is not 100% solution. Records indicate from the [facility] system that she does have follow-up scheduled for the with GI. Extensive discussion with her and her family at bedside. Discussed with some course of gastroparesis and in addition to Reglan may need additional specialist follow-up and could consider [facility] follow-up or may have even gastric pacemaker if indicated. Discussed that if she stayed for some more symptom control and observation not sure that we would be able to solve the underlying gastroparesis. Patient and family aware of this but wished for observation. DIAGNOSIS: Gastroparesis, abdominal pain, nausea and vomiting DISPOSITION: Hospitalist will evaluate Patient was agreeable with this plan. Past Med/Surg History Medical History Chronic low back pain Depression Generalized anxiety disorder GERD (gastroesophageal reflux disease) Hypercholesteremia Hypertension Major depressive disorder, recurrent episode with anxious distress Osteoporosis Post traumatic stress disorder (PTSD) Scoliosis Suicidal ideation Surgical History S/P hysterectomy Family History Other Cancer Heart disease Social History Smoking Status: Never smoker Second Hand Exposure: No; Do You Dip or Chew Tobacco: No; Hx Alcohol Use: No Hx Substance Use: No Preferred Language: Khmer Communication Ability: Effective Business 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 Director Required: No Beliefs That Will Affect Care: None marital status: Current Living Situation: Alone How many Children do You have: 2 Other Information That Helps Us Care for You: No Feels Safe at Home: Yes Assistive Devices: Glasses Allergies Allergies Allergy/AdvReac Type Severity Reaction Status Date / Time No Known Allergies Allergy Verified 11/07/22 11:02 Home Meds Home Medications Medication Instructions Recorded Confirmed atorvastatin 20 mg tablet 20 mg PO HS 03/10/19 02/18/23 meloxicam 15 mg tablet 15 mg PO DAILY PRN Pain 04/15/22 02/18/23 sertraline 100 mg tablet 100 mg PO QAM 04/15/22 02/18/23 acetaminophen 650 mg 650 mg PO TID PRN Pain 08/25/22 02/18/23 tablet,extended release (Tylenol 8 Hour) atenolol 25 mg tablet 12.5 mg PO BID 08/25/22 02/18/23 cholecalciferol (vitamin D3) 25 25 mcg PO DAILY 08/25/22 02/18/23 mcg (1,000 unit) capsule (Vitamin D3) metoclopramide HCl 5 mg/5 mL oral 5 mg PO QID PRN ABD PAIN 08/25/22 02/18/23 solution tramadol 50 mg tablet 50 mg PO TID PRN Pain 08/25/22 02/18/23 levothyroxine 88 mcg tablet 88 mcg PO QAM 02/13/23 02/18/23 Previous Rx's Medication Instructions Recorded dicyclomine 10 mg capsule 10 mg PO TID PRN Abdominal cramps 04/23/22 #20 caps Results & Data (ED) Vital Signs Vital Signs - 24 hr 02/18/23 07:44 02/18/23 08:13 02/18/23 08:14 Temperature 36.2 C L Temperature Source Temporal Artery Scan Pulse Rate 70 Pulse Rate [Left Apical] 54 L Pulse Rate from SpO2 Sensor Pulse Rhythm [Left Apical] Regular Pulse Strength [Left Apical] Normal Respiratory Rate 20 16 Respiratory Effort / Characteristics Non-Labored Non-Labored Spontaneous Respiratory Depth Normal Normal Blood Pressure 136/96 Blood Pressure [Left Arm] 152/87 H Blood Pressure Mean 109 Blood Pressure Mean [Left Arm] 108 Pulse Oximetry 96 95 97 Oxygen Delivery Method Room Air Room Air Room Air Sepsis Recent Fever Within 48 Hours No Sepsis New/Unexplained Change in Mental Status N/A Sepsis Action Taken by Nursing No Action Required 02/18/23 08:14 02/18/23 09:37 02/18/23 10:36 Temperature Temperature Source Pulse Rate 56 L Pulse Rate [Left Apical] 61 70 Pulse Rate from SpO2 Sensor Pulse Rhythm [Left Apical] Pulse Strength [Left Apical] Respiratory Rate 18 18 Respiratory Effort / Characteristics Respiratory Depth Blood Pressure Blood Pressure [Left Arm] 156/93 H 159/86 H Blood Pressure Mean Blood Pressure Mean [Left Arm] 114 110 Pulse Oximetry 95 96 Oxygen Delivery Method Room Air Sepsis Recent Fever Within 48 Hours Sepsis New/Unexplained Change in Mental Status Sepsis Action Taken by Nursing 02/18/23 08:11 02/18/23 08:12 02/18/23 08:12 Temperature Temperature Source Pulse Rate 57 L 57 L Pulse Rate [Left Apical] Pulse Rate from SpO2 Sensor 51 L Pulse Rhythm [Left Apical] Pulse Strength [Left Apical] Respiratory Rate 15 18 Respiratory Effort / Characteristics Respiratory Depth Blood Pressure 152/87 H Blood Pressure [Left Arm] Blood Pressure Mean 121 Blood Pressure Mean [Left Arm] Pulse Oximetry 95 Oxygen Delivery Method Sepsis Recent Fever Within 48 Hours Sepsis New/Unexplained Change in Mental Status Sepsis Action Taken by Nursing 02/18/23 08:20 02/18/23 08:30 02/18/23 08:40 Temperature Temperature Source Pulse Rate 56 L 57 L 54 L Pulse Rate [Left Apical] Pulse Rate from SpO2 Sensor 56 L 55 L 55 L Pulse Rhythm [Left Apical] Pulse Strength [Left Apical] Respiratory Rate 14 16 15 Respiratory Effort / Characteristics Respiratory Depth Blood Pressure Blood Pressure [Left Arm] Blood Pressure Mean Blood Pressure Mean [Left Arm] Pulse Oximetry 95 97 98 Oxygen Delivery Method Sepsis Recent Fever Within 48 Hours Sepsis New/Unexplained Change in Mental Status Sepsis Action Taken by Nursing 02/18/23 08:50 02/18/23 08:54 02/18/23 09:31 Temperature Temperature Source Pulse Rate 60 80 Pulse Rate [Left Apical] Pulse Rate from SpO2 Sensor 62 Pulse Rhythm [Left Apical] Pulse Strength [Left Apical] Respiratory Rate 12 21 Respiratory Effort / Characteristics Respiratory Depth Blood Pressure 156/93 H Blood Pressure [Left Arm] Blood Pressure Mean 135 Blood Pressure Mean [Left Arm] Pulse Oximetry 98 Oxygen Delivery Method Sepsis Recent Fever Within 48 Hours Sepsis New/Unexplained Change in Mental Status Sepsis Action Taken by Nursing 02/18/23 09:32 02/18/23 09:40 02/18/23 09:50 Temperature Temperature Source Pulse Rate Pulse Rate [Left Apical] Pulse Rate from SpO2 Sensor 59 L 59 L 73 Pulse Rhythm [Left Apical] Pulse Strength [Left Apical] Respiratory Rate Respiratory Effort / Characteristics Respiratory Depth Blood Pressure Blood Pressure [Left Arm] Blood Pressure Mean Blood Pressure Mean [Left Arm] Pulse Oximetry 97 93 95 Oxygen Delivery Method Sepsis Recent Fever Within 48 Hours Sepsis New/Unexplained Change in Mental Status Sepsis Action Taken by Nursing 02/18/23 10:00 02/18/23 10:00 02/18/23 10:10 Temperature Temperature Source Pulse Rate Pulse Rate [Left Apical] Pulse Rate from SpO2 Sensor 62 72 Pulse Rhythm [Left Apical] Pulse Strength [Left Apical] Respiratory Rate Respiratory Effort / Characteristics Respiratory Depth Blood Pressure 159/86 H Blood Pressure [Left Arm] Blood Pressure Mean 113 Blood Pressure Mean [Left Arm] Pulse Oximetry 95 96 Oxygen Delivery Method Sepsis Recent Fever Within 48 Hours Sepsis New/Unexplained Change in Mental Status Sepsis Action Taken by Nursing Laboratory Data 02/18/23 08:07 02/18/23 08:07 Lab Results 02/18/23 02/18/23 02/18/23 Range/Units 08:07 08:07 08:12 WBC 9.13 (4.8-10.8) K/ul RBC 5.20 (4.20-5.40) M/uL Hgb 16.0 (12.0-16.0) g/dl Hct 46.5 (37.0-47.0) % MCV 89.4 (80.0-100.0) fL MCH 30.8 (25.0-34.0) pg MCHC 34.4 (32.0-36.0) g/dL RDW Std Deviation 42.6 (36.4-46.3) fL RDW Coeff of [place] 13.1 (11.5-14.5) % Plt Count 262 (130-400) K/uL MPV 11.4 (9.4-12.4) fL Immature Gran % (Auto) 0.3 % Neut % (Auto) 70.6 % Lymph % (Auto) 21.4 % [place] % (Auto) 6.9 % Eos % (Auto) 0.3 % Baso % (Auto) 0.5 % Neut # (Auto) 6.44 (1.40-6.50) K/uL Lymph # (Auto) 1.95 (1.2-3.4) K/uL [place] # (Auto) 0.63 H (0.11-0.59) K/uL Eos # (Auto) 0.03 (0-0.50) K/uL Baso # (Auto) 0.05 (0-0.2) K/uL Immature Gran # (Auto) 0.03 (0.01-0.20) K/uL Sodium 139 (136-145) mmol/L Potassium 3.5 (3.5-5.1) mmol/L Chloride 106 (98-107) mmol/L Carbon Dioxide 25 (21-32) mmol/L Anion Gap 8 (3-11) BUN 16 (6-23) mg/dl Creatinine 0.69 (0.6-1.2) mg/dl Est Cr Clr Drug Dosing 59.1 ml/min Est GFR ( Amer) 101.5 ml/min Est GFR (Non-Af Amer) 87.6 ml/min BUN/Creatinine Ratio 23.2 H (10-20) Glucose 107 H (70-99(Fasting)) mg/dl Calcium 9.7 (8.6-10.3) mg/dl Magnesium 1.8 (1.7-2.4) mg/dl Total Bilirubin 0.7 (0.2-1.0) mg/dl AST 18 (13-39) U/L ALT 9 (7-52) U/L Alkaline Phosphatase 100 (34-104) U/L Troponin I High Sens 3.2 (0-14) pg/ml Total Protein 7.2 (6.0-8.3) gm/dl Albumin 4.3 (3.4-5.0) gm/dl Globulin 2.9 (2.5-4.0) gm/dl Albumin/Globulin Ratio 1.5 (0.9-2) Lipase 35 (11-82) U/L Urine Color Urine Appearance (Clear) Urine pH (4.5-7.5) Ur Specific [place] (1.000-1.030) Urine Protein (Negative) Urine Glucose (UA) (Negative) Urine Ketones (Negative) Urine Blood (Negative) Urine Nitrite (Negative) Urine Bilirubin (Negative) Urine Urobilinogen (Negative) Ur Leukocyte Esterase (Negative) SARS-CoV-2 (PCR) NEGATIVE (Negative) 02/18/23 Range/Units 10:23 WBC (4.8-10.8) K/ul RBC (4.20-5.40) M/uL Hgb (12.0-16.0) g/dl Hct (37.0-47.0) % MCV (80.0-100.0) fL MCH (25.0-34.0) pg MCHC (32.0-36.0) g/dL RDW Std Deviation (36.4-46.3) fL RDW Coeff of [place]deep (11.5-14.5) % Plt Count (130-400) K/uL MPV (9.4-12.4) fL Immature Gran % (Auto) % Neut % (Auto) % Lymph % (Auto) % [place] % (Auto) % Eos % (Auto) % Baso % (Auto) % Neut # (Auto) (1.40-6.50) K/uL Lymph # (Auto) (1.2-3.4) K/uL [place] # (Auto) (0.11-0.59) K/uL Eos # (Auto) (0-0.50) K/uL Baso # (Auto) (0-0.2) K/uL Immature Gran # (Auto) (0.01-0.20) K/uL Sodium (136-145) mmol/L Potassium (3.5-5.1) mmol/L Chloride (98-107) mmol/L Carbon Dioxide (21-32) mmol/L Anion Gap (3-11) BUN (6-23) mg/dl Creatinine (0.6-1.2) mg/dl Est Cr Clr Drug Dosing ml/min Est GFR ( Amer) ml/min Est GFR (Non-Af Amer) ml/min BUN/Creatinine Ratio (10-20) Glucose (70-99(Fasting)) mg/dl Calcium (8.6-10.3) mg/dl Magnesium (1.7-2.4) mg/dl Total Bilirubin (0.2-1.0) mg/dl AST (13-39) U/L ALT (7-52) U/L Alkaline Phosphatase (34-104) U/L Troponin I High Sens (0-14) pg/ml Total Protein (6.0-8.3) gm/dl Albumin (3.4-5.0) gm/dl Globulin (2.5-4.0) gm/dl Albumin/Globulin Ratio (0.9-2) Lipase (11-82) U/L Urine Color Yellow Urine Appearance Clear (Clear) Urine pH 5.5 (4.5-7.5) Ur Specific [place] 1.044 H (1.000-1.030) Urine Protein Negative (Negative) Urine Glucose (UA) Negative (Negative) Urine Ketones Trace H (Negative) Urine Blood Negative (Negative) Urine Nitrite Negative (Negative) Urine Bilirubin Negative (Negative) Urine Urobilinogen Negative (Negative) Ur Leukocyte Esterase Negative (Negative) SARS-CoV-2 (PCR) (Negative) Administered Medications Discontinued Medications Sodium Chloride (Nss 1000ml) 1,000 mls @ 999 mls/hr IV .Q1H1M STEFFANIE Stop: 02/18/23 09:00 Last Infusion: 02/18/23 09:37 Dose: 0 mls/hr Documented By: Admin: 02/18/23 08:07 Dose: 999 mls/hr Documented By: ONEIDA Ioversol (Optiray 320 100ml) 95 ml IV ONCE ONE Stop: 02/18/23 09:08 Last Admin: 02/18/23 09:07 Dose: 95 ml Documented By: MALLORIE Metoclopramide HCl (Metoclopramide Hcl Inj 5 Mg/Ml 2 Ml Vial) 10 mg IV NOW STA Stop: 02/18/23 08:00 Last Admin: 02/18/23 08:08 Dose: 10 mg Documented By: ONEIDA Ondansetron HCl (Ondansetron Inj 2 Mg/Ml 2 Ml Vial) 4 mg IV NOW STA Stop: 02/18/23 09:23 Last Admin: 02/18/23 09:26 Dose: 4 mg Documented By: ONEIDA Imaging Data Radiologist's Impression: Abdomen/Pelvis CT 02/18/23 08:[address] WITH IV CONTRAST CT DOSE: 740.08 mGy.cm HISTORY: Mid abdominal pain. Vomiting. TECHNIQUE: Multiaxial CT images of the abdomen and pelvis were performed following the use of intravenous contrast. A dose lowering technique was utilized adhering to the principles of ALARA. COMPARISON STUDY: Abdomen and pelvis CT 08/25/2022. FINDINGS: The lung bases are clear. No pneumoperitoneum. No pneumatosis. Severe S-shaped scoliosis of the thoracolumbar spine again noted. No acute fractures. There is a stable 6 mm hypodense lesion within the left hepatic lobe. This is technically indeterminate but favors a cyst. The main portal vein is patent. The gallbladder, pancreas, and adrenal glands unremarkable. There are punctate calcified granuloma seen within the spleen. The kidneys enhance normally. No hydronephrosis. Normal caliber abdominal aorta. No retroperitoneal or pelvic lymphadenopathy. The bladder is unremarkable. Prior hysterectomy. No pelvic free fluid. No bowel wall thickening or obstruction. Colonic diverticulosis. No evidence for acute diverticulitis. Fluid-filled colon. This can be seen in the setting of a gastroenteritis. There is questionable mucosal hyperenhancement within the colon. A low-grade colitis is not excluded. IMPRESSION: 1. Fluid-filled colon. This can be seen in the setting of a gastroenteritis/diarrheal illness. 2. Questionable mucosal hyperenhancement within the colon. This raises the possibility low-grade colitis. 3. No evidence for bowel obstruction. 4. Normal appendix. 5. Additional findings as described above. ACT 112: Negative or not required by law. Electronically signed by: Ismael Herbert M.D. 02/18/2023 9:30 AM Discharge Plan Visit Data Chief Complaint: GI Assessment Stated Complaint: GASTROPERESIS ED Provider: Jeff Beach Discharge Problem: Nausea, Gastroparesis, Abdominal pain Patient Disposition: Admitted As Inpatient Discharge Instructions Interventions: ED Discharge Assessment Last Done: 02/18/23 12:39
[2023-02-18 08:27] LABS: Basophils # (auto) 0.05 K/uL (0-0.2); Basophils % (auto) 0.5 %; Eosinophils # (auto) 0.03 K/uL (0-0.50); Eosinophils % (auto) 0.3 %; Hematocrit (blood only) 46.5 % (37.0-47.0); Immature Granulocytes # (auto) 0.03 K/uL (0.01-0.20); Immature Granulocytes % (auto) 0.3 %; Lymphocytes # (auto) 1.95 K/uL (1.2-3.4); Lymphocytes % (auto) 21.4 %; Mean Corpuscular Hemoglobin 30.8 pg (25.0-34.0); Mean Corpuscular Hgb Conc 34.4 g/dL (32.0-36.0); Mean Corpuscular Volume 89.4 fL (80.0-100.0); Mean Platelet Volume 11.4 fL (9.4-12.4); Monocytes # (auto) 0.63 K/uL (0.11-0.59); Monocytes % (auto) 6.9 %; Neutrophils # (auto) 6.44 K/uL (1.40-6.50); Neutrophils % (auto) 70.6 %; Platelet Count 262 K/uL (130-400); RDW Coefficient of Variation 13.1 % (11.5-14.5); RDW Standard Deviation 42.6 fL (36.4-46.3); White Blood Count 9.13 K/ul (4.8-10.8)
[2023-02-18 08:45] LABS: Albumin Globulin Ratio 1.5 (0.9-2); Albumin Level 4.3 gm/dl (3.4-5.0); BUN Creatinine Ratio 23.2 (10-20); Bilirubin,Total 0.7 mg/dl (0.2-1.0); Calcium 9.7 mg/dl (8.6-10.3); Creatinine Clr Calc Pharmacy 59.1 ml/min; Est GFR (African American) 101.5 ml/min; Est GFR (Non-African American) 87.6 ml/min; Globulin 2.9 gm/dl (2.5-4.0); Magnesium 1.8 mg/dl (1.7-2.4); Potassium 3.5 mmol/L (3.5-5.1); Total Protein 7.2 gm/dl (6.0-8.3)
[2023-02-18 08:51] LABS: Troponin I High Sensitivity 3.2 pg/ml (0-14)
[2023-02-18] MEDS ORDERED: OPTIRAY 320 100ml IV ONE (09:07)
[2023-02-18] MEDS ORDERED: ONDANSETRON INJ 2 MG/ML 2 ML VIAL IV STA (09:22)
--- NOTE | 2023-02-18 09:33 | CT Scan Report ---
ABDOMEN AND PELVIS CT WITH IV CONTRAST CT DOSE: 740.08 mGy.cm HISTORY: Mid abdominal pain. Vomiting. TECHNIQUE: Multiaxial CT images of the abdomen and pelvis were performed following the use of intrave nous contrast. A dose lowering technique was utilized adhering to the principles of ALARA. COMPARISON STUDY: Abdomen and pelvis CT 08/25/2022. FINDINGS: The lung bases are clear. No pneumoperitoneum. No pneumatosis. Severe S-shaped scoliosis of the thoracolumbar spine again noted. No acute fractures. There is a stable 6 mm hypodense lesion wit hin the left hepatic lobe. This is technically indeterminate but favors a cyst. The main portal vein is patent. The gallbladder, pancreas, and adrenal glands unremarkable. There are punctate calcified g ranuloma seen within the spleen. The kidneys enhance normally. No hydronephrosis. Normal caliber abdo ramirez aorta. No retroperitoneal or pelvic lymphadenopathy. The bladder is unremarkable. Prior hystere ctomy. No pelvic free fluid. No bowel wall thickening or obstruction. Colonic diverticulosis. No evid ence for acute diverticulitis. Fluid-filled colon. This can be seen in the setting of a gastroenterit is. There is questionable mucosal hyperenhancement within the colon. A low-grade colitis is not exclu ded. IMPRESSION: 1. Fluid-filled colon. This can be seen in the setting of a gastroenteritis/diarrheal illness. 2. Questionable mucosal hyperenhancement within the colon. This raises the possibility low-grade coli tis. 3. No evidence for bowel obstruction. 4. Normal appendix. 5. Additional findings as described above. ACT 112: Negative or not required by law. Electronically signed by: Ismael Herbert M.D. 02/18/2023 9:30 AM
[2023-02-18 10:32] LABS: Appearance Urine Clear (Clear); Bilirubin Urine Negative (Negative); Blood Urine Negative (Negative); Color Urine Yellow; Glucose Urine UA Negative (Negative); Ketones Urine Trace (Negative); Leukocyte Esterase Urine Negative (Negative); Nitrite Urine Negative (Negative); Protein Urine Negative (Negative); Specific Gravity Urine 1.044 (1.000-1.030); Urobilinogen Urine Negative (Negative); pH Urine 5.5 (4.5-7.5)
--- NOTE | 2023-02-18 11:28 | History & Physical Report ---
Date of Service February 18, 2023 Assessment & Plan (1) Gastroparesis: (2) Nausea: (3) Abdominal pain: (4) Diarrhea: (5) Chronic low back pain: (6) Hypertension: (7) Generalized anxiety disorder: (8) Depression: (9) Post traumatic stress disorder (PTSD): (10) Major depressive disorder, recurrent episode with anxious distress: Plan 72yoF with PMhx significant for IBS, hx of c diff colitis, spinal stenosis, MGUS, PTSD/Anxiety/Depression, Hypothyroidism, HLD, HTN admitted with N/V/D in the setting of chronic gastroparesis. N/V/D/IBS/Gastroparesis Pt notes 5 weeks of worsening N/V/D, states more recently has been unable to keep food down Chronic Hx of abdominal symptoms, follows closely with GI. States has been evaluated at [facility], [facility] for follow [facility]. Current diagnosis of gastroparesis, noted on gastric emptying study from July 2022. Covid negative, c diff and stool testing ordered by ED and pending CT abd/pelvis: notes gastroenteritis, possible low grade colitis Pt on chronic narcotics and gabapentin, currently on tramadol daily. Per records GI/PCP has recommended weaning as they are potential contributors to her symptoms. Pt notes that she has been off of gabapentin for the last week. Will increase home reglan to 10mg q6h prn while hospitalized, bland diet Received IV hydration in the ED, consider continuous if pt continues to have episodes of emesis/diarrhea GI consult- pt and sons at bedside requesting to be seen by the service, pt specifically requesting Dr. Smallwood. Advised that consult would be placed for service and that will likely be seen by commercial collections driver provider- they were agreeab le. Spinal Stenosis/Chronic back pain Pt currently on tramadol, gabapentin, meloxicam As noted above, per records GI/PCP has recommended weaning. Pt notes that she has been off of gabapentin for the last week. PTSD/Anxiety/Depression Continue home zoloft Hypothyroidism Continue home levothyroxine HLD Continue home statin HTN Continue home atenolol MGUS Stable CODE STATUS: DNR/DNI DVT prophylaxis: Lovenox SQ Diet: was NPO in the ED, advanced to clears. Advance diet as tolerated Dispo: med/Surg History of Present Illness Chief Complaint: Abdominal Pain Primary Care Provider: Desirae Palacio MD 72yoF with PMhx significant for IBS, hx of c diff colitis, spinal stenosis, MGUS, PTSD/Anxiety/Depression, Hypothyroidism, HLD, HTN admitted with N/V/D in the setting of chronic gastroparesis. States that she has been having chronic abdominal symptoms for many years. Notes she follows with GI and though she was recently told she has gastroparesis, she is unsure of the exact cause. States that she has followed up with [facility], [facility] and now has an upcoming appointment with Chanelle Moncada for further evaluation of her symptoms. States that this recent flare started about 5 weeks ago. She has been to the ED previously for evaluation as recently as a few days ago. States has also contacted both her pcp and GI and is frustrated as her symptoms persist. She does note that her mother had covid recently and could have been a sick contact. Has been using her home reglan to help but states her N/V still persists. Has not been able to eat. One episode of loose stool this morning. On daily tramadol though she notes she has weaned off her gabapentin completely for the last week. Notes she is feeling slightly better, but pt and sons requesting admission for observation given her persistent symptoms. ED Course: WBC, Cr wnl, covid negative, CT abd/pelvis noting gastroenteritis and mild colitis. Received 1L NSS, IV Reglan 10mg Allergies Allergy/AdvReac Type Severity Reaction Status Date / Time No Known Allergies Allergy Verified 11/07/22 11:02 Home Medications Medication Instructions Recorded Confirmed Type atorvastatin 20 mg tablet 20 mg PO HS 03/10/19 02/18/23 History meloxicam 15 mg tablet 15 mg PO DAILY PRN Pain 04/15/22 02/18/23 History sertraline 100 mg tablet 100 mg PO QAM 04/15/22 02/18/23 History dicyclomine 10 mg capsule 10 mg PO TID PRN Abdominal cramps 04/23/22 02/18/23 Rx #20 caps acetaminophen 650 mg 650 mg PO TID PRN Pain 08/25/22 02/18/23 History tablet,extended release (Tylenol 8 Hour) atenolol 25 mg tablet 12.5 mg PO BID 08/25/22 02/18/23 History cholecalciferol (vitamin D3) 25 25 mcg PO DAILY 08/25/22 02/18/23 History mcg (1,000 unit) capsule (Vitamin D3) metoclopramide HCl 5 mg/5 mL oral 5 mg PO QID PRN ABD PAIN 08/25/22 02/18/23 History solution tramadol 50 mg tablet 50 mg PO TID PRN Pain 08/25/22 02/18/23 History levothyroxine 88 mcg tablet 88 mcg PO QAM 02/13/23 02/18/23 History Past Med/Surg History Medical History Chronic low back pain Depression Generalized anxiety disorder GERD (gastroesophageal reflux disease) Hypercholesteremia Hypertension Major depressive disorder, recurrent episode with anxious distress Osteoporosis Post traumatic stress disorder (PTSD) Scoliosis Suicidal ideation Surgical History S/P hysterectomy Family History Other Cancer Heart disease Social History Smoking Status: Never smoker Second Hand Exposure: No; Do You Dip or Chew Tobacco: No; Hx Alcohol Use: No Hx Substance Use: No Preferred Language: Trinidadian Communication Ability: Effective 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 No acute distress, laying in bed Psych: Appropriate mood and affect HEENT: NC/AT CV: RRR Resp: Breath sounds clear bilaterally, no increased effort of breathing. Abdomen: Soft, nontender Extremities: No edema in lower extremities bilaterally. Results & Data Results & Data Vital Signs (Past 12 Hours) Vital Signs Temp Pulse Pulse Resp BP BP Pulse Ox 02/18/23 10:10 96 02/18/23 10:00 95 02/18/23 10:00 159/86 H 02/18/23 09:50 95 02/18/23 09:40 93 02/18/23 09:32 97 02/18/23 09:31 156/93 H 02/18/23 08:54 80 21 02/18/23 08:50 60 12 98 02/18/23 08:40 54 L 15 98 02/18/23 08:30 57 L 16 97 02/18/23 08:20 56 L 14 95 02/18/23 08:12 57 L 18 95 02/18/23 08:12 152/87 H 02/18/23 08:11 57 L 15 02/18/23 10:36 70 18 159/86 H 96 02/18/23 09:37 61 18 156/93 H 95 02/18/23 08:14 56 L 02/18/23 08:14 97 02/18/23 08:13 54 L 16 152/87 H 95 02/18/23 07:44 36.2 C L 70 20 136/96 96 O2 Del Method 02/18/23 10:10 02/18/23 10:00 02/18/23 10:00 02/18/23 09:50 02/18/23 09:40 02/18/23 09:32 02/18/23 09:31 02/18/23 08:54 02/18/23 08:50 02/18/23 08:40 02/18/23 08:30 02/18/23 08:20 02/18/23 08:12 02/18/23 08:12 02/18/23 08:11 02/18/23 10:36 02/18/23 09:37 Room Air 02/18/23 08:14 02/18/23 08:14 Room Air 02/18/23 08:13 Room Air 02/18/23 07:44 Room Air
[2023-02-18] MEDS ORDERED: METOCLOPRAMIDE HCL 10 MG/10 ML UDC PO PRN (12:58)
[2023-02-18] MEDS ORDERED: MELOXICAM 7.5 MG TAB PO PRN (12:58)
[2023-02-18] MEDS ORDERED: DICYCLOMINE HCL 10 MG CAP PO PRN (12:58)
[2023-02-18] MEDS ORDERED: METOCLOPRAMIDE HCL INJ 5 MG/ML 2 ML VIAL IV SCH (13:15)
--- NOTE | 2023-02-18 14:04 | Electrocardiogram Report ---
Test Reason : Blood Pressure : / mmHG Vent. Rate : 055 BPM Atrial Rate : 055 BPM P-R Int : 146 ms QRS Dur : 082 ms QT Int : 452 ms P-R-T Axes : 043 -03 057 degrees QTc Int : 432 ms Sinus bradycardia with Blocked PAC Nonspecific ST and T wave abnormality Abnormal ECG When compared with ECG of 25-AUG-2022 18:18, Vent. rate has decreased BY 36 BPM Nonspecific T wave abnormality, improved in Inferior leads Nonspecific T wave abnormality has replaced inverted T waves in Lateral leads Confirmed by Wilner Das ([id number]) on 02/18/2023 2:03:42 PM Referred By: REFERRED SELF Confirmed By:Wilner Das
[2023-02-18] MEDS: ENOXAPARIN INJ 40 MG/0.4 ML SYR SQ SCH (14:54)
[2023-02-18] MEDS: DICYCLOMINE HCL 10 MG CAP PO PRN (15:04)
[2023-02-18] MEDS ORDERED: traZODone HCL 50 MG TAB PO PRN (15:06)
[2023-02-18] MEDS: ATORVASTATIN 20 MG TAB PO SCH (19:29)
[2023-02-18] MEDS: ATENOLOL 25 MG TABLET PO SCH (19:30)
[2023-02-18 20:03] LABS: Adenovirus F 40/41 PCR Not Detected (NotDetected); Astrovirus PCR Not Detected (NotDetected); Campylobacter PCR Not Detected (NotDetected); Cryptosporidium PCR Not Detected (NotDetected); Cyclospora cayetanensis PCR Not Detected (NotDetected); Entamoeba histolytica PCR Not Detected (NotDetected); Enteroaggregative E.coli(EAEC) Not Detected (NotDetected); Enteropathogenic E.coli (EPEC) Not Detected (NotDetected); Enterotoxigenic E.coli (ETEC) Not Detected (NotDetected); Giardia lamblia PCR Not Detected (NotDetected); Norovirus GI/GII PCR Not Detected (NotDetected); Plesiomonas shigelloides PCR Not Detected (NotDetected); Rotavirus A PCR Not Detected (NotDetected); Salmonella PCR Not Detected (NotDetected); Sapovirus PCR Not Detected (NotDetected); Shiga-like Toxin E.coli (STEC) Not Detected (NotDetected); Shigella/Enteroinvasive E.coli Not Detected (NotDetected); Vibrio cholerae PCR Not Detected (NotDetected); Vibrio species PCR Not Detected (NotDetected); Yersinia enterocolitica PCR Not Detected (NotDetected)
[2023-02-18] MEDS: METOCLOPRAMIDE HCL INJ 5 MG/ML 2 ML VIAL IV PRN (20:13)
[2023-02-19] MEDS: METOCLOPRAMIDE HCL INJ 5 MG/ML 2 ML VIAL IV PRN ×3 (02:44→17:28)
[2023-02-19] MEDS ORDERED: MELATONIN 3 MG TAB PO PRN (02:57)
[2023-02-19] MEDS: LEVOTHYROXINE SODIUM 88 MCG TABLET PO SCH (05:31)
[2023-02-19] MEDS: CHOLECALCIFEROL 1,000 UNITS 25 MCG TAB PO SCH (07:41)
[2023-02-19] MEDS: ATENOLOL 25 MG TABLET PO SCH ×2 (07:41→20:01)
[2023-02-19] MEDS: SERTRALINE HCL 100 MG TABLET PO SCH (07:41)
[2023-02-19] MEDS: DICYCLOMINE HCL 10 MG CAP PO PRN ×2 (07:48→15:09)
[2023-02-19 07:52] LABS: Basophils # (auto) 0.04 K/uL (0-0.2); Basophils % (auto) 0.5 %; Eosinophils # (auto) 0.11 K/uL (0-0.50); Eosinophils % (auto) 1.3 %; Hematocrit (blood only) 39.7 % (37.0-47.0); Hemoglobin 13.8 g/dl (12.0-16.0); Immature Granulocytes # (auto) 0.03 K/uL (0.01-0.20); Immature Granulocytes % (auto) 0.4 %; Lymphocytes # (auto) 2.14 K/uL (1.2-3.4); Lymphocytes % (auto) 25.8 %; Mean Corpuscular Hemoglobin 31.3 pg (25.0-34.0); Mean Corpuscular Hgb Conc 34.8 g/dL (32.0-36.0); Mean Platelet Volume 11.3 fL (9.4-12.4); Monocytes # (auto) 0.66 K/uL (0.11-0.59); Platelet Count 222 K/uL (130-400); RDW Coefficient of Variation 13.2 % (11.5-14.5); RDW Standard Deviation 43.7 fL (36.4-46.3); Red Blood Count 4.41 M/uL (4.20-5.40); White Blood Count 8.28 K/ul (4.8-10.8)
[2023-02-19 08:09] LABS: Albumin Globulin Ratio 1.6 (0.9-2); Albumin Level 3.6 gm/dl (3.4-5.0); BUN Creatinine Ratio 15.1 (10-20); Bilirubin,Total 0.6 mg/dl (0.2-1.0); Est GFR (African American) 110.7 ml/min; Est GFR (Non-African American) 95.5 ml/min; Globulin 2.2 gm/dl (2.5-4.0); Potassium 3.4 mmol/L (3.5-5.1); Total Protein 5.8 gm/dl (6.0-8.3)
[2023-02-19] MEDS ORDERED: POTASSIUM CHLORIDE CRTAB 20 MEQ TABCR PO ONE (08:34)
--- NOTE | 2023-02-19 10:20 | CT Scan Report ---
CT head/brain wo con CLINICAL HISTORY: 72 years-old Female with Dizziness, Confusion. Acute dizziness with confusion TECHNIQUE: Multiple axial CT images of the head were obtained without contrast. A dose lowering tech nique was utilized adhering to the principles of ALARA. CT DOSE: 625.80 mGy.cm COMPARISON: 04/15/2022 FINDINGS: No acute intracranial hemorrhage, midline shift, intracranial mass, hydrocephalus, territorial ischem ia or abnormal extra-axial collection. Age related involutional changes. Suggestion of mild chronic m icrovascular ischemic disease. The calvarium is intact. Prior bilateral lens repair. The paranasal sinuses, mastoid air cells, and m iddle ear cavities are clear. IMPRESSION: No acute intracranial abnormality. ACT 112: Negative or not required by law. The above report was generated using voice recognition software. It may contain grammatical, syntax o r spelling errors. Electronically signed by: Pb Torres M.D. 02/19/2023 10:18 AM
--- NOTE | 2023-02-19 12:57 | Gastroenterology Progress Note ---
Date of Service February 19, 2023 Assessment & Plan (1) Gastroparesis: Plan: N/V/diarrhea all improved since admission. Plan Advance diet. If able to tolerate then OK for DC from a GI standpoint. Has an OP appt (non GI) that she wants to get to tomorrow and an OP GI appt March [address] Molina. GI will sign off. Please notify. Please recall with questions. Admission and Anticipated Discharge Date Admission Date: February 18, 2023 Supervising Physician Co-Signing Physician Notes Patient was seen and examined on 02/19 with ILDEFONSO Oliver whose note reflects our findings and plan. Subjective 71 yr old female acute on chronic abd pain, N/V and diarrhea. Followed by Dr. Smallwood and Rita Boucher for gastroparesis. Most recent EGD Apr 2022 w mild antral gastritis. GES in Jul 2022 w significant delay. C-scopy in 2018 w diverticuloses, random colon bx (-). She has been struggling w N/V since mid December, despite being maintained on reglan and zofran. Because she had a lot of vomiting on Sunday, Sat, she presented and was admitted. She denies any blood in emesis or BMs. She is having a lot of diarrhea as well. Stools for C-diff and GI path (-) here. CTAP w IV with liquid fecal material ? mild colitis. She has an appt with Dr. Molina in a few weeks to consider G-Poem. Review of Systems Review of Systems: ROS: Gen: Denies weakness, fevers, + 10 lbs unintentional weight loss Eyes: No eye redness, or pain, no recent vision changes Resp: No SOB, no cough Cardio: No palpitations/irregular beats, no chest pain GI: As per HPI, otherwise (-) : Denies pain on urination Skin: No jaundice, itching or new rashes Physical Exam Constitutional: WD/WN, vitals as above Eyes: PERRL, conjunctivae normal, anicteric sclerae ENMT: external ear and nose normal, oropharynx normal Neck: trachea midline, no thyromegaly Respiratory: normal respiratory effort, lungs clear to auscultation Cardiovascular: RRR, no murmur, no edema Gastrointestinal (Abdomen): Inspection/Auscultation: abdomen normal to inspection and normal bowel sounds; abdomen not distended Percussion/Palpation: + abdomen tender (epigastric); no guarding, abdomen not rigid and no ascites Musculoskeletal: no cyanosis or clubbing, extremities motor strength 5/5 Skin: no rashes, warm and dry Neurologic: patellar DTR's 2+ bilat, sensation intact Psychiatric: Orientation: oriented x 3 Eye Contact: good eye contact somewhat flat/depressed affect Lymphatic: no cervical or axillary lymphadenopathy Results & Data Vital Signs (Past 12 Hours) Vital Signs Temp Pulse Resp BP Pulse Ox O2 Del Method 02/19/23 06:03 36.8 C 60 18 162/82 H 96 Room Air Laboratory Results WBC 9, Hb 16, Hct 46, Plts 262, Na 139, K 3.5, Cl 106, CO2 25, Cr 0.69, gluocse 107. Diagnostic Findings CTAP 02/18/23: 1. Fluid-filled colon. This can be seen in the setting of a gastroenteritis/diarrheal illness. 2. Questionable mucosal hyperenhancement within the colon. This raises the possibility low-grade colitis. 3. No evidence for bowel obstruction. 4. Normal appendix. 5. Additional findings as described above.
[2023-02-19] MEDS: ENOXAPARIN INJ 40 MG/0.4 ML SYR SQ SCH (14:40)
[2023-02-19] MEDS: ACETAMINOPHEN 325 MG TAB PO PRN (14:40)
--- NOTE | 2023-02-19 16:24 | Hospitalist Progress Note ---
Date of Service February 19, 2023 Assessment & Plan (1) Gastroparesis: (2) Nausea: (3) Abdominal pain: (4) Diarrhea: (5) Chronic low back pain: (6) Hypertension: (7) Generalized anxiety disorder: (8) Depression: (9) Post traumatic stress disorder (PTSD): (10) Major depressive disorder, recurrent episode with anxious distress: Plan Patient is a 72 yr female with H/O IBS, hx of c diff colitis, spinal stenosis, MGUS, PTSD/Anxiety/Depression, Hypothyroidism, HLD, HTN admitted with N/V/D in the setting of chronic gastroparesis. Gastroparesis H/O irritable bowel Syndrome DD: Colitis/gastroenteritis Chronic H/O Abdominal symptoms, evaluated at [facility], plans to follow up at [facility]. Current diagnosis of gastroparesis, noted on gastric emptying study from July 2022. --Stool Studies: Negative --CT ABD:Fluid-filled colon. This can be seen in the setting of a gastroenteritis/diarrheal illness. Questionable mucosal hyperenhancement within the colon. This raises the possibility low-grade colitis. No evidence for bowel obstruction. Normal appendix. --Continue Reglan for now --Advance diet as tolerated --Wean off of Narcotics as able --Received IV fluids --Needs follow up with GI upon discharge Spinal Stenosis/Chronic back pain Currently on tramadol, gabapentin, meloxicam Recently tapered off of gabapentin last week. Headache Reported Dizziness/Confusion CT Head:No acute intracranial abnormality. Hypokalemia Replete electrolytes as needed Monitor PTSD/Anxiety/Depression Continue home zoloft Hypothyroidism Continue levothyroxine HLD Continue statin HTN Continue atenolol MGUS Stable DVT Px: Lovenox SQ CODE STATUS: DNR/DNI Admission and Anticipated Discharge Date Admission Date: February 18, 2023 Subjective Patient is seen and examined at bedside States having nausea but no vomiting this morning Also reports right-sided headache States having abdominal discomfort Denies any chest pain, dyspnea, dizziness No other complaints Review of Systems Review of Systems: All systems reviewed & are unremarkable except as noted in Subjective Physical Exam Physical Exam: Physical Exam: Vitals signs as noted above General Appearance:Moderately built and nourished, no apparent distress Head: normocephalic, Atraumatic Eyes: normal inspection, EOMI Neck: supple, Trachea midline Respiratory/Chest: Normal breath sounds, CTA, No accessory muscle use Cardiovascular: S1, S2, No murmur Abdomen/GI:Soft, Epigastric tender, Bowel sounds present Extremities/Musculoskeletal:normal inspection, no edema Neurologic/Psych:AAOX3, grossly no focal neurological deficits Skin: normal color, warm Results & Data Results & Data Vital Signs (Past 12 Hours) Vital Signs Temp Pulse Resp BP Pulse Ox O2 Del Method 02/19/23 14:22 36.8 C 56 L 16 126/76 95 Room Air 02/19/23 06:03 36.8 C 60 18 162/82 H 96 Room Air Laboratory Results Short CBC 02/19/23 Range/Units 07:15 WBC 8.28 (4.8-10.8) K/ul Hgb 13.8 (12.0-16.0) g/dl Hct 39.7 (37.0-47.0) % Plt Count 222 (130-400) K/uL BMP 02/19/23 07:15 Sodium 138 Potassium 3.4 L Chloride 108 H Carbon Dioxide 23 BUN 8 Creatinine 0.53 L Glucose 88 Calcium 9.0 Liver Function 02/19/23 Range/Units 07:15 Total Bilirubin 0.6 (0.2-1.0) mg/dl AST 14 (13-39) U/L ALT 7 (7-52) U/L Alkaline Phosphatase 73 (34-104) U/L Albumin 3.6 (3.4-5.0) gm/dl
[2023-02-19] MEDS: traMADol HCL 50 MG TABLET PO PRN (17:27)
[2023-02-19] MEDS: ATORVASTATIN 20 MG TAB PO SCH (19:58)
[2023-02-20] MEDS: METOCLOPRAMIDE HCL INJ 5 MG/ML 2 ML VIAL IV PRN ×2 (00:55→07:43)
[2023-02-20] MEDS: LEVOTHYROXINE SODIUM 88 MCG TABLET PO SCH (06:16)
[2023-02-20 06:52] LABS: Basophils # (auto) 0.05 K/uL (0-0.2); Basophils % (auto) 0.7 %; Eosinophils % (auto) 1.4 %; Hemoglobin 14.9 g/dl (12.0-16.0); Immature Granulocytes # (auto) 0.02 K/uL (0.01-0.20); Immature Granulocytes % (auto) 0.3 %; Lymphocytes # (auto) 2.32 K/uL (1.2-3.4); Lymphocytes % (auto) 31.4 %; Mean Corpuscular Hemoglobin 30.8 pg (25.0-34.0); Mean Corpuscular Hgb Conc 33.9 g/dL (32.0-36.0); Mean Corpuscular Volume 91.1 fL (80.0-100.0); Mean Platelet Volume 11.2 fL (9.4-12.4); Monocytes # (auto) 0.54 K/uL (0.11-0.59); Monocytes % (auto) 7.3 %; Neutrophils # (auto) 4.37 K/uL (1.40-6.50); Neutrophils % (auto) 58.9 %; Platelet Count 237 K/uL (130-400); RDW Coefficient of Variation 13.2 % (11.5-14.5); RDW Standard Deviation 43.8 fL (36.4-46.3); Red Blood Count 4.83 M/uL (4.20-5.40)
[2023-02-20 07:07] LABS: Albumin Globulin Ratio 1.6 (0.9-2); Albumin Level 3.8 gm/dl (3.4-5.0); BUN Creatinine Ratio 9.4 (10-20); Bilirubin,Total 0.6 mg/dl (0.2-1.0); Calcium 9.3 mg/dl (8.6-10.3); Creatinine Clr Calc Pharmacy 63.8 ml/min; Est GFR (African American) 104.1 ml/min; Est GFR (Non-African American) 89.8 ml/min; Globulin 2.4 gm/dl (2.5-4.0); Magnesium 1.8 mg/dl (1.7-2.4); Potassium 3.9 mmol/L (3.5-5.1); Total Protein 6.2 gm/dl (6.0-8.3)
[2023-02-20] MEDS: SERTRALINE HCL 100 MG TABLET PO SCH (09:27)
[2023-02-20] MEDS: ATENOLOL 25 MG TABLET PO SCH ×2 (09:27→20:41)
[2023-02-20] MEDS: CHOLECALCIFEROL 1,000 UNITS 25 MCG TAB PO SCH (09:28)
[2023-02-20] MEDS: traMADol HCL 50 MG TABLET PO PRN ×2 (09:30→20:41)
[2023-02-20] MEDS: DICYCLOMINE HCL 10 MG CAP PO PRN (12:15)
--- NOTE | 2023-02-20 13:48 | Hospitalist Progress Note ---
Date of Service February 20, 2023 Assessment & Plan (1) Gastroparesis: (2) Nausea: (3) Abdominal pain: (4) Diarrhea: (5) Chronic low back pain: (6) Hypertension: (7) Generalized anxiety disorder: (8) Depression: (9) Post traumatic stress disorder (PTSD): (10) Major depressive disorder, recurrent episode with anxious distress: Plan Patient is a 72 yr female with H/O IBS, hx of c diff colitis, spinal stenosis, MGUS, PTSD/Anxiety/Depression, Hypothyroidism, HLD, HTN admitted with N/V/D in the setting of chronic gastroparesis. Gastroparesis H/O irritable bowel Syndrome DD: Colitis/gastroenteritis Chronic H/O Abdominal symptoms, evaluated at [facility], plans to follow up at [facility]. Current diagnosis of gastroparesis, noted on gastric emptying study from July 2022. --Stool Studies: Negative --CT ABD:Fluid-filled colon. This can be seen in the setting of a gastroenteritis/diarrheal illness. Questionable mucosal hyperenhancement within the colon. This raises the possibility low-grade colitis. No evidence for bowel obstruction. Normal appendix. --Continue Reglan for now, will transition to PO, pt feels not working as expected, per GI could trial Erthromycin but will give further trial of reglan for now --she will follow up with GI o 03/06 as OP --Advance diet as tolerated --Wean off of Narcotics as able --Received IV fluids --Needs follow up with GI upon discharge, 03/06 --will d/c bentyl as it has possiblity to cause visual disturbances Spinal Stenosis/Chronic back pain Currently on tramadol, gabapentin, meloxicam Recently tapered off of gabapentin last week. Headache Reported Dizziness/Confusion CT Head:No acute intracranial abnormality. Hypokalemia Replete electrolytes as needed Monitor PTSD/Anxiety/Depression Continue home zoloft pt anxious today about going home Hypothyroidism Continue levothyroxine HLD Continue statin HTN Continue atenolol MGUS Stable DVT Px: Lovenox SQ CODE STATUS: DNR/DNI Dispo: Plan to d/c to home tomorrow Pt was seen and examined in collaboration with Dr. Siddiqui, please see addendum A total of 50 was spent coordinating, documenting, and providing care for this patient excluding time spent in the performance of separately billed services. This included personally viewing all current laboratories and imaging studies, medication reconciliation, outpatient chart review, and discussion with specialists. Admission and Anticipated Discharge Date Admission Date: February 18, 2023 Supervising Physician Co-Signing Physician Notes Patient is seen and examined at bedside. States having 2 loose bowel movements but denies any significant nausea. Tolerating current diet. Still has some ab dominal discomfort as well. Reports transient double vision which has been ongoing for the past few weeks. Anxious about recurrence of her symptoms. On exam patient is moderately built and nourished, no apparent distress, normocephalic atraumatic, EOMI, normal breath sounds, clear to auscultation, S1- S2, no murmur, no peripheral edema, abdomen soft, nontender, normal bowel sounds, alert, awake, oriented, grossly no focal deficits. Gastroparesis. Continue Reglan. Advance diet as tolerated. Wean off of narcotics. GI following. Given transient blurred vision, agree with discontinuing Bentyl. Will need follow-up with GI upon discharge. I personally reviewed the record. Patient is interviewed and examined at bedside. Patient's care is coordinated with Christi Parra PA-C. Please refer to the documentation above for details of patient's presentation and for discussion of other issues. Subjective Pt was seen and examined in room 380-1. F/U Gastroparesis and gastroenteritis. She is still have 2 large loose BM a day. Denies any abd pain. Continues to c/o nausea and feels reglan isn't helping. She is anxious about going home and that sx worsen when she gets home. She is frustrated with her diagnosis and hates that she has to live like this. Review of Systems Review of Systems: All systems reviewed & are unremarkable except as noted in HPI & below Physical Exam Physical Exam: Gen: WD/WN, appears anxious, F, sitting up in bed, NAD, A&O x3 HEENT: Normocephalic, atraumatic, conjunctivae moist, sclerae anicteric, mucous membranes moist. Lung: Clear to Auscultation bilaterally, no wheezes/rales/rhonchi Heart: Regular rate, regular rhythm, no murmurs, rubs, or gallops Abdomen: Soft, NT, ND +BS x 4 Extremities: No edema Skin: Warm, no rash, negative turgor. Results & Data Results & Data Vital Signs (Past 12 Hours) Vital Signs Temp Pulse Resp BP Pulse Ox O2 Del Method 02/20/23 08:10 37.3 C 74 17 137/94 95 Room Air Medications Administered Current Inpatient Medications Acetaminophen (Acetaminophen 325 Mg Tab) 650 mg PO TID PRN PRN Reason: Pain Last Admin: 02/19/23 14:40 Dose: 650 mg Atenolol (Atenolol 25 Mg Tablet) 12.5 mg PO BID STEFFANIE Stop: 03/20/23 20:59 Last Admin: 02/20/23 09:27 Dose: 12.5 mg Atorvastatin Calcium (Atorvastatin 20 Mg Tab) 20 mg PO HS STEFFANIE Stop: 03/20/23 20:59 Last Admin: 02/19/23 19:58 Dose: 20 mg Dicyclomine HCl (Dicyclomine Hcl 10 Mg Cap) 10 mg PO TID PRN PRN Reason: Abdominal cramps Stop: 03/20/23 12:57 Last Admin: 02/20/23 12:15 Dose: 10 mg Enoxaparin Sodium (Enoxaparin Inj 40 Mg/0.4 Ml Syr) 40 mg SQ Q24H STEFFANIE Stop: 03/20/23 13:59 Last Admin: 02/19/23 14:40 Dose: 40 mg Levothyroxine Sodium (Levothyroxine Sodium 88 Mcg Tablet) 88 mcg PO DAILYBB STEFFANIE Stop: 03/21/23 06:29 Last Admin: 02/20/23 06:16 Dose: 88 mcg Melatonin (Melatonin 3 Mg Tab) 3 mg PO HS PRN PRN Reason: Sleep Stop: 03/21/23 02:56 Last Admin: 02/19/23 03:02 Dose: 3 mg Meloxicam (Meloxicam 7.5 Mg Tab) 15 mg PO DAILY PRN PRN Reason: Pain Stop: 03/20/23 12:57 Metoclopramide HCl (Metoclopramide Hcl Inj 5 Mg/Ml 2 Ml Vial) 10 mg IV Q6H PRN PRN Reason: Nausea And Vomiting Stop: 03/20/23 13:14 Last Admin: 02/20/23 07:43 Dose: 10 mg Sertraline HCl (Sertraline Hcl 100 Mg Tablet) 100 mg PO QAM STEFFANIE Stop: 03/21/23 08:59 Last Admin: 02/20/23 09:27 Dose: 100 mg Tramadol HCl (Tramadol Hcl 50 Mg Tablet) 50 mg PO TID PRN PRN Reason: Pain Stop: 03/20/23 12:57 Last Admin: 02/20/23 09:30 Dose: 50 mg Trazodone HCl (Trazodone Hcl 50 Mg Tab) 50 mg PO HS PRN PRN Reason: Insomnia Stop: 03/20/23 20:59 Last Admin: 02/18/23 20:13 Dose: 50 mg Vitamin D (Cholecalciferol 1,000 Units 25 Mcg Tab) 1,000 units PO DAILY STEFFANIE Stop: 03/21/23 08:59 Last Admin: 02/20/23 09:28 Dose: 1,000 units
[2023-02-20] MEDS: ENOXAPARIN INJ 40 MG/0.4 ML SYR SQ SCH (13:51)
[2023-02-20] MEDS: METOCLOPRAMIDE HCL 10 MG TABLET PO SCH (16:27)
[2023-02-20] MEDS ORDERED: METOCLOPRAMIDE HCL 5 MG TABLET PO SCH (16:30)
[2023-02-20] MEDS: ATORVASTATIN 20 MG TAB PO SCH (20:41)
[2023-02-21] MEDS: ACETAMINOPHEN 325 MG TAB PO PRN (05:51)
[2023-02-21] MEDS: LEVOTHYROXINE SODIUM 88 MCG TABLET PO SCH (05:52)
[2023-02-21] MEDS: METOCLOPRAMIDE HCL 10 MG TABLET PO SCH ×2 (07:57→11:36)
[2023-02-21] MEDS: ATENOLOL 25 MG TABLET PO SCH (08:31)
[2023-02-21] MEDS: CHOLECALCIFEROL 1,000 UNITS 25 MCG TAB PO SCH (08:32)
[2023-02-21] MEDS: SERTRALINE HCL 100 MG TABLET PO SCH (08:32)
[2023-02-21 09:28] LABS: Basophils # (auto) 0.06 K/uL (0-0.2); Basophils % (auto) 0.7 %; Eosinophils % (auto) 1.2 %; Hematocrit (blood only) 42.6 % (37.0-47.0); Hemoglobin 14.7 g/dl (12.0-16.0); Immature Granulocytes # (auto) 0.02 K/uL (0.01-0.20); Immature Granulocytes % (auto) 0.2 %; Lymphocytes # (auto) 1.92 K/uL (1.2-3.4); Lymphocytes % (auto) 23.8 %; Mean Corpuscular Hemoglobin 31.3 pg (25.0-34.0); Mean Corpuscular Hgb Conc 34.5 g/dL (32.0-36.0); Mean Corpuscular Volume 90.6 fL (80.0-100.0); Mean Platelet Volume 11.6 fL (9.4-12.4); Monocytes # (auto) 0.62 K/uL (0.11-0.59); Monocytes % (auto) 7.7 %; Neutrophils # (auto) 5.34 K/uL (1.40-6.50); Neutrophils % (auto) 66.4 %; Platelet Count 236 K/uL (130-400); RDW Coefficient of Variation 13.3 % (11.5-14.5); RDW Standard Deviation 43.9 fL (36.4-46.3); White Blood Count 8.06 K/ul (4.8-10.8)
[2023-02-21 09:48] LABS: Albumin Globulin Ratio 1.5 (0.9-2); Albumin Level 3.7 gm/dl (3.4-5.0); Bilirubin,Total 0.5 mg/dl (0.2-1.0); Calcium 9.4 mg/dl (8.6-10.3); Creatinine Clr Calc Pharmacy 62.8 ml/min; Est GFR (African American) 103.5 ml/min; Est GFR (Non-African American) 89.3 ml/min; Globulin 2.5 gm/dl (2.5-4.0); Potassium 3.4 mmol/L (3.5-5.1); Total Protein 6.2 gm/dl (6.0-8.3)
--- NOTE | 2023-02-21 11:04 | Discharge Summary ---
Discharge Summary Date of Service February 21, 2023 Notes For Next Care Provider Patient admitted for gastroenteritis and flare of gastroparesis. Reglan was increased to 10 mg 30 minutes before meals and at bedtime. She will need close GI follow-up and patient is also interested in obtaining referral to [facility] in regards to her gastroparesis. Her gastroparesis appears to be debilitating secondary to symptoms as well as also worsens her anxiety. Medication Changes From Visit Increase Reglan to 10 mg 30 minutes before meals and at bedtime for nausea. Hold Bentyl for now for 1 week to see if visual disturbance resolves as this could be a possible side effect. If symptoms still present okay to resume after 1 week. Admission HPI Per Admitting Provider 72yoF with PMhx significant for IBS, hx of c diff colitis, spinal stenosis, MGUS, PTSD/Anxiety/Depression, Hypothyroidism, HLD, HTN admitted with N/V/D in the setting of chronic gastroparesis. States that she has been having chronic abdominal symptoms for many years. Notes she follows with GI and though she was recently told she has gastroparesis, she is unsure of the exact cause. States that she has followed up with [facility], [facility] and now has an upcoming appointment with Chanelle Moncada for further evaluation of her symptoms. States that this recent flare started about 5 weeks ago. She has been to the ED previously for evaluation as recently as a few days ago. States has also contacted both her pcp and GI and is frustrated as her symptoms persist. She does note that her mother had covid recently and could have been a sick contact. Has been using her home reglan to help but states her N/V still persists. Has not been able to eat. One episode of loose stool this morning. On daily tramadol though she notes she has weaned off her gabapentin completely for the last week. Notes she is feeling slightly better, but pt and sons requesting admission for observation given her persistent symptoms. ED Course: WBC, Cr wnl, covid negative, CT abd/pelvis noting gastroenteritis and mild colitis. Received 1L NSS, IV Reglan 10mg Admission Exam Per Admitting Provider General: Alert, oriented. No acute distress, laying in bed Psych: Appropriate mood and affect HEENT: NC/AT CV: RRR Resp: Breath sounds clear bilaterally, no increased effort of breathing. Abdomen: Soft, nontender Extremities: No edema in lower extremities bilaterally. Principal Dx & Hospital Course #1 = Principal Diagnosis (1) Gastroparesis: (2) Nausea: (3) Abdominal pain: (4) Diarrhea: (5) Chronic low back pain: (6) Hypertension: (7) Generalized anxiety disorder: (8) Depression: (9) Post traumatic stress disorder (PTSD): (10) Major depressive disorder, recurrent episode with anxious distress: Plan Patient is a 72 yr female with H/O IBS, hx of c diff colitis, spinal stenosis, MGUS, PTSD/Anxiety/Depression, Hypothyroidism, HLD, HTN admitted with N/V/D in the setting of chronic gastroparesis. Gastroparesis H/O irritable bowel Syndrome DD: Colitis/gastroenteritis Chronic H/O Abdominal symptoms, evaluated at [facility], plans to follow up at [facility]. Current diagnosis of gastroparesis, noted on gastric emptying study from July 2022. --Stool Studies: Negative --CT ABD:Fluid-filled colon. This can be seen in the setting of a gastroenteritis/diarrheal illness. Questionable mucosal hyperenhancement within the colon. This raises the possibility low-grade colitis. No evidence for bowel obstruction. Normal appendix. --Continue Reglan for now, will transition to PO, pt feels not working as expected, per GI could trial Erthromycin but will give further trial of reglan for now --she will follow up with GI o 03/06 as OP --Advance diet as tolerated --Wean off of Narcotics as able --Received IV fluids --Needs follow up with GI upon discharge, 03/06 --will d/c bentyl as it has possiblity to cause visual disturbances Visual acuity change Diplopia pt reports visual change for 2-3 weeks saw opthal prior to hosp and has f/u with them 02/23 encourage close follow up when pt closes on eye, sx resolve no other neurological deficit will trial off bentyl as she started this recently as per Uptodate that can be a side effect CT head negative Spinal Stenosis/Chronic back pain Currently on tramadol, meloxicam Recently tapered off of gabapentin last week. Headache Reported Dizziness/Confusion CT Head:No acute intracranial abnormality. Hypokalemia Replete electrolytes as needed Monitor PTSD/Anxiety/Depression Continue home zoloft Pt has increased anxiety over gastroparesis flare and nausea Hypothyroidism Continue levothyroxine HLD Continue statin HTN Continue atenolol MGUS Stable DVT Px: Lovenox SQ CODE STATUS: DNR/DNI Dispo: Plan to d/c to home today Pt was seen and examined in collaboration with Dr. Florence, please see addendum A total of 50 was spent coordinating, documenting, and providing care for this patient excluding time spent in the performance of separately billed services. This included personally viewing all current laboratories and imaging studies, medication reconciliation, outpatient chart review, and discussion with specialists. Discharge Exam Gen: WD/WN, appears anxious, F, sitting up in bed, NAD, A&O x3 HEENT: Normocephalic, atraumatic, conjunctivae moist, sclerae anicteric, mucous membranes moist. Lung: Clear to Auscultation bilaterally, no wheezes/rales/rhonchi Heart: Regular rate, regular rhythm, no murmurs, rubs, or gallops Abdomen: Soft, NT, ND +BS x 4 Extremities: No edema Skin: Warm, no rash, negative turgor. Updated Medication List Medication Instructions Recorded Confirmed Type atorvastatin 20 mg tablet 20 mg PO HS 03/10/19 02/18/23 History meloxicam 15 mg tablet 15 mg PO DAILY PRN Pain 04/15/22 02/18/23 History sertraline 100 mg tablet 100 mg PO QAM 04/15/22 02/18/23 History dicyclomine 10 mg capsule 10 mg PO TID PRN Abdominal cramps 04/23/22 02/18/23 Rx #20 caps acetaminophen 650 mg 650 mg PO TID PRN Pain 08/25/22 02/18/23 History tablet,extended release (Tylenol 8 Hour) atenolol 25 mg tablet 12.5 mg PO BID 08/25/22 02/18/23 History cholecalciferol (vitamin D3) 25 25 mcg PO DAILY 08/25/22 02/18/23 History mcg (1,000 unit) capsule (Vitamin D3) tramadol 50 mg tablet 50 mg PO TID PRN Pain 08/25/22 02/18/23 History levothyroxine 88 mcg tablet 88 mcg PO QAM 02/13/23 02/18/23 History metoclopramide HCl 5 mg/5 mL oral 10 mg (10 mL) PO QID PRN ABD PAIN 02/21/23 Rx solution #473 mL Hospital Stay Data Consultations 02/18/23 10:35 ED Decision to Admit Stat 02/18/23 12:58 Consult Gastroenterology Routine Diagnostic Imagining Performed Abdomen/Pelvis CT 02/18/23 08:[address] WITH IV CONTRAST CT DOSE: 740.08 mGy.cm HISTORY: Mid abdominal pain. Vomiting. TECHNIQUE: Multiaxial CT images of the abdomen and pelvis were performed following the use of intravenous contrast. A dose lowering technique was utilized adhering to the principles of ALARA. COMPARISON STUDY: Abdomen and pelvis CT 08/25/2022. FINDINGS: The lung bases are clear. No pneumoperitoneum. No pneumatosis. Severe S-shaped scoliosis of the thoracolumbar spine again noted. No acute fractures. There is a stable 6 mm hypodense lesion within the left hepatic lobe. This is technically indeterminate but favors a cyst. The main portal vein is patent. The gallbladder, pancreas, and adrenal glands unremarkable. There are punctate calcified granuloma seen within the spleen. The kidneys enhance normally. No hydronephrosis. Normal caliber abdominal aorta. No retroperitoneal or pelvic lymphadenopathy. The bladder is unremarkable. Prior hysterectomy. No pelvic free fluid. No bowel wall thickening or obstruction. Colonic diverticulosis. No evidence for acute diverticulitis. Fluid-filled colon. This can be seen in the setting of a gastroenteritis. There is questionable mucosal hyperenhancement within the colon. A low-grade colitis is not excluded. IMPRESSION: 1. Fluid-filled colon. This can be seen in the setting of a gastroenteritis/diarrheal illness. 2. Questionable mucosal hyperenhancement within the colon. This raises the possibility low-grade colitis. 3. No evidence for bowel obstruction. 4. Normal appendix. 5. Additional findings as described above. ACT 112: Negative or not required by law. Electronically signed by: Ismael Herbert M.D. 02/18/2023 9:[address] 02/19/23 08:41 CT head/brain wo con CLINICAL HISTORY: 72 years-old Female with Dizziness, Confusion. Acute dizziness with confusion TECHNIQUE: Multiple axial CT images of the head were obtained without contrast. A dose lowering technique was utilized adhering to the principles of ALARA. CT DOSE: 625.80 mGy.cm COMPARISON: 04/15/2022 FINDINGS: No acute intracranial hemorrhage, midline shift, intracranial mass, hydrocephalus, territorial ischemia or abnormal extra-axial collection. Age related involutional changes. Suggestion of mild chronic microvascular ischemic disease. The calvarium is intact. Prior bilateral lens repair. The paranasal sinuses, mastoid air cells, and middle ear cavities are clear. IMPRESSION: No acute intracranial abnormality. ACT 112: Negative or not required by law. The above report was generated using voice recognition software. It may contain grammatical, syntax or spelling errors. Electronically signed by: Pb Torres M.D. 02/19/2023 10:18 AM Pending Results Patient Have Any Pending Studies at Discharge: No Discharge Instructions Given to Patient (Per Discharging Provider) MEDICATION CHANGES: Increase Reglan to 10 mg 30 minutes before meals and at bedtime for nausea. Hold Bentyl for now for 1 week to see if visual disturbance resolves as this could be a possible side effect. If symptoms still present okay to resume after 1 week. SUMMARY OF TEST RESULTS: You were admitted to hospital secondary to nausea, vomiting and diarrhea. CT scan of your abdomen and pelvis revealed that you likely had a gastroenteritis which is usually caused by a virus. This also likely flared your gastroparesis and caused worsened nausea. You were seen and evaluated by gastroenterology. We increased your Reglan to 10 mg, 30 minutes before meals and at bedtime. You will follow-up with gastroenterology as outpatient. PENDING TEST RESULTS: None RECOMMENDATIONS FOR FOLLOW-UP: Please follow-up with gastroenterology as scheduled. Recommend smaller meals and eating more frequently for your gastroparesis. Your Reglan has been increased to try to help with nausea. If this does not improve you could talk to your product development ecologist about the possibility of starting erythromycin to promote GI motility. Please follow-up with primary care provider as scheduled. Please follow-up with your tractor trailer mechanic(eye doctor) as scheduled as you are reporting changes in your vision. OTHER INSTRUCTIONS: Seek medical attention if you have: * temperature above 101 * chest pain or trouble breathing * abdominal pain, nausea, vomiting * diarrhea, dark stools or bloody stools * any unanswered questions or concerns Call 911 if symptoms are severe. Please take good care of yourself. It has been a pleasure taking care of you. Please take care of yourself. If you have any questions regarding your recent hospitalization please contact [facility] and request Flo Calderónist @ [phone]. Total Time Total Time Spent Total Time Spent (In Minutes): 45 minutes Supervising Physician Co-Signing Physician Notes Patient seen and examined independently. Discussed with above provider. Reports nausea; no episode of vomiting or abdominal pain. Discussed importance of small meals and adherence to prokinetic therapy. Patient to follow-up with PCP and GI as outpatient.
[2023-02-21] MEDS: traMADol HCL 50 MG TABLET PO PRN (11:09)
[2023-02-21] MEDS: ENOXAPARIN INJ 40 MG/0.4 ML SYR SQ SCH (14:04)
== END 2023-02-21 15:12 | disposition home or self-care (01) | DRG 392 ==
LOC: 3N 07:38 → ED 07:38 → SUATTDRO 11:25 → 3N 12:39 → SUATTDRO 02-20 12:48